=== PATIENT | female | born 1955 | race Caucasian/White ===

== ENCOUNTER 2017-05-10 05:54 | Day surgery (SDC) | payer OTHER, SELFPAY ==
[2017-05-10] VITALS (8 sets, daily range): BP systolic 131–162; BP diastolic 78–84; PULSE 60–86; RESP 16–18; TEMP 36.2–37; O2SAT 91–97; BMI 27.6
[2017-05-10] MEDS: Cefazolin 2 GM in 0.9% Normal Saline 100 ML IV (07:28)
--- NOTE | 2017-05-10 07:30 | RAD_ITS ---
STUDY: X-RAY - RIGHT FOOT CLINICAL: Female, 62 years old. Postop TECHNIQUE: 2 view(s) of the foot. COMPARISON: None. FINDINGS: Intraoperative control, status post osteotomy of the proximal first phalanx and distal second metatarsal and arthroplasty of the second PIP joint. The status post implant placement in the third metatarsal head. The hardware appears intact and in proper position. No intraoperative complications are seen. Total fluoroscopy time was 2.55 minutes RAD/Foot 2 Views IMPRESSION: Intraoperative control as described above. Electronically Signed: Sridhar Falk MD, FACR at 11:22 EST , Service support ,
--- NOTE | 2017-05-10 07:30 | BON_PTH ---
PATIENT: PEDRO AVINA LOC: [facility] [place] U#:[id number] AGE/SX: 62/F ROOM: RE05/10/[address]: Dr. Emmanuel Barraza DPM : 1955 BED: DIS: 05/10/2017 SPEC #: [id number] RECD: 05/10/17 13:09 STATUS: [place] LASHA #: [id number] ARIAN: 05/10/17 07:[address]: Emmanuel Barraza DEPT: SURGICAL PATHOLOGY RECD BY: Diego Dickey ENTERED: 05/10/17 14:42 SP TYPE: Bone OTHR DR: Dr. Kameron Lin MD Tissues: A - Bone of foot, NOS B - Bone of foot, NOS Procedures: Decalcification bone/plaque Surgery Specimen Level IV HEADER OPERATION: First MPJ chilectomy bunionectomy, excision sesamoids, second metatarsal PRE-OP DIAGNOSIS: Hallux valgus with osteoarthritis first MPJ, hammertoe second digit, long second metatarsal with possible second MPJ plantar plate, avascular necrosis/arthritis third MPJ TISSUE SUBMITTED: A ? Right foot third metatarsal head, B ? Right foot first MPJ and sesamoids MICROSCOPIC DIAGNOSIS A. Right foot third metatarsal head, biopsy: Fragments of bone with reparative and reactive change and changes consistent with avascular necrosis. Minimal synovial tissue with mild chronic inflammation. B. Right foot first MPJ and sesamoids, biopsy: Osseocartilaginous tissue with reparative change. Benign fibrofatty tissue. AM:live 05/15/17 GROSS DIAGNOSIS B. There is no evidence of osteomyelitis. MICROSCOPIC DESCRIPTION Slides are reviewed. GROSS DESCRIPTION A - Received in fixative is one container labeled with the patient's name and designated right foot, third metatarsal head. The specimen consists of multiple fragments of bone that in aggregate measure 3 x 2.5 x 0.3 cm. The entire specimen is submitted in one cassette after decalcification. B - Received in fixative is one container labeled with the patient's name and designated right foot first MPJ and sesamoids. The specimen consists of multiple variable size pieces of bone that in aggregate measure 5 x 3 x 0.5 cm. A few of the pieces show articular surfaces. Harp Regulator sections are submitted in two cassettes after decalcification. / SJ:live 05/10/17 TC:5 CPT: 16177 x2, 62449 x2
[2017-05-10] MEDS: Bupivacaine Mpf 0.5% 30 ML VIAL (10:37)
--- NOTE | 2017-05-10 10:47 | RAD_ITS ---
STUDY: X-RAY - RIGHT FOOT CLINICAL: Female, 62 years old. Postop evaluation. TECHNIQUE: 3 view(s) of the foot. COMPARISON: MRI of the foot dated March 11, 2017 FINDINGS: There is demineralization of the rear and midfoot bones. There is narrowing of several intertarsal articulations. Patient appears of had a bunionectomy of the first metatarsal head. There is deformity of distal second metatarsal possibly related to previous fracture. There are orthopedic devices within the second metatarsal head. There is a prosthesis at the third metatarsal head. There is degenerative arthrosis of the metatarsophalangeal joint of the hallux . Normal tibial and fibular sesamoid bones. Normal interphalangeal joint of the great toe. The patient apparently has had an osteotomy of the proximal phalanx of the hallux. There is increased distance between the second proximal metatarsal and the second metatarsal head. The metatarsal phalangeal joints of the fourth and fifth toes are within normal limits. Patient appears to have had surgical arthrodesis of the phalanges of the second toe. There is soft tissue swelling. RAD/Foot min 3 Views IMPRESSION: 1. Documentation of sequela multiple surgical procedures of the right foot, as described. 2. Osteoporosis. Electronically Signed: Rajwinder Campos MD at 13:34 EST , Service support ,
--- NOTE | 2017-05-10 10:51 | PCM.DC.POD ---
Discharge Diet: Light diet - advance as tolerated Discharge Activity: May Not Drive Weight Bearing Status: No weight bearing - No weight to right foot Keep extremity elevated above heart level: Right Leg - Keep right foot elevated for at least 50 minutes of every hour using pillows Call your doctor if your incision/area has: Continuous Slow Oozing, Sudden Increased Bleeding, Foul Smelling Discharge Call your doctor if you observe: Fever of 101 or Higher, Coldness, Increased Pain, Shortness of breath, Chest pain, Increased palpitations (irregular heartbeat), Calf discomfort, Uncontrolled pain Cleanse incision/area with: Do not get Incision Wet, Keep Dressing Clean & Dry Allergies/Adverse Reactions: Allergies No Known Allergies Allergy (Verified 05/03/17 10:27) Medications to take at Discharge Atorvastatin Calcium [Lipitor] 40 mg PO QHS 01/23/17 Citalopram Hydrobromide [Celexa] 40 mg PO QHS 01/23/17 Levothyroxine Sodium [Levoxyl] 50 mcg PO DAILY 01/23/17 Lisinopril/Hydrochlorothiazide [Zestoretic 20-25 mg Tablet] 1 each PO DAILY 01/23/17 Meloxicam 7.5 mg PO PRN PRN 01/23/17 Oxycodone HCl/Acetaminophen [Percocet 5/325] 1 - 2 tab PO Q4H PRN PRN 5 Days #30 tab 05/10/17 The following prescriptions were given: Oxycodone HCl/Acetaminophen [Percocet 5/325] 1 - 2 tab PO Q4H PRN PRN 5 Days #30 tab PRN Reason: Pain Primary Care Physician: Kameron Lin Chi, MD [Primary Care Provider] - Please Follow Up With: Emmanuel Barraza DPM When: within 1 week or sooner if needed
--- NOTE | 2017-05-10 10:57 | OP.PCM_ITS ---
Report of Operation Date of Procedure: 05/10/17 Pre-Operative Diagnosis: 1. Hallux valgus bunion with osteoarthritis of the 1st metatarsal phalangeal joint including the sesamoids, right. 2. Deformity of 2nd metatarsal with torn plantar plate 2nd metatarsal phalangeal joint right. 3. Hammer toe of the 2nd toe right foot. 4. Avascular necrosis of the 3rd metatarsal head, right / osteoarthritis 3rd metatarsal phalangeal joint Post-Operative Diagnosis: Same Surgery/Procedure Performed:: 1. Bunionectomy with cheilectomy and sesamoidectomy right 1st metatarsal phalangeal joint. 2. Elvin osteotomy right hallux. 3. 2nd metatarsal osteotomy with repair of 2nd metatarsal phalangeal joint plantar plate, right. 4. Arthrodesis of the 2nd toe, right. 5. Implant arthroplasty 3rd metatarsal head, right Description of Surgical Findings:: nonviable avascular necrosis 3rd metatarsal head right foot. severe contracture 2nd toe, right. 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 Barnhart Type of Anesthesia:: General Specimen's removed: 1. Bone from right 3rd metatarsal head sent to pathology. 2. Bone from right 1st metatarsal phalangeal joint with excised sesamoids sent to pathology Description of Procedure: Indications: This is a 62 year old female with painful bunion/1st metatarsal phalagneal joint (MTPJ), painful 2nd hammer toe, 2nd MTPJ, and painful 3rd metatarsal head all on the right foot. She has hallux valgus bunion with osteoarthritis of the 1st MTPJ including the sesamoids, significant 2nd hammer toe and 2nd metatarsal deformity with instability of the 2nd MTPJ plantar plate , and also noted to have avascular necrosis of the 3rd metatarsal head. This has been treated with extensive conservative/nonsurgical management, but symptoms persists and she continues to have pain and symptoms. She elected to undergo surgery. We discussed the procedures. We reviewed the rationale of each as well as the possible benefits, risks, potential complications goals and expectations of each.This was discussed with her in great detail. Typical post op recovery was reviewed with her. Advised her the increased risks with smoking/ tobacco use, including nonhealing and nonunion, along with increased chance of all other potential complications. She expressed understanding and agreement, and related she was going to quit smoking. The consent forms were reviewed with her in detail, and she freely signed them. No guarantees were given. All of her questions were answered. Operative Procedure: The patient was brought back into the operating room and was placed on the operating room table in the supine position. She was carefully secured to the operating room table with a safety belt around her waist. A time out was performed and the patient was properly identified and the surgical plan was confirmed. The patient received 2 grams of IV Ancef for antibiotic prophylaxis. A well padded pneumatic tourniquet was applied around the right ankle. The patient did receive general anesthesia per the anesthesiologist. The right foot was scrubbed, prepped, draped in the usual aseptic fashion. A timeout was performed and the patient was properly identified and the surgical plan was confirmed. The right foot was elevated for 3 minutes and the right ankle pneumatic tourniquet was inflated to 250mmHg. Using a 15 blade a linear longitudinal skin incision was overlying the dorsal aspect of the 3rd metatarsal phalangeal joint (MTPJ). Careful blunt dissection was completed down through the subcutaneous layer to the dorsal 3rd MTPJ capsule. The capsule of the 3rd MTPJ was identified and was carefully incised dorsally, it was carefully reflected from the dorsal, medial and lateral aspect, exposing the 3rd metatarsal head. There was noted to be significant degenerative changes of the 3rd metatarsal head with yellow nonviable cartilage, there was fragmentation of the 3rd metatarsal head consistent with avascular necrosis. The cartilage on the base of the 3rd toe proximal phalanx did appear healthy and viable. A guide wire was placed centrally and perpendicular to the 3rd metatarsal head and was placed down the shaft of the 3rd metatarsal. This was checked using intraoperative fluoroscopy. A step drill was used to prepare the screw hole to the 3rd metatarsal head. The 7mm taper post fixation component was inserted in standard fashion. A reamer was using to remove the nonviable damaged cartilage and bone to creat a socket for the implant. The excised bone / cartilage was sent to pathology for further evaluation. Due to the extensive nature of the nonviable unhealthy cartilage and bone the 3rd metatarsal was not short. It is important to note that all bone ledges were removed from the 3rd metatarsal head. The Arthrosurface implant was ready to be inserted. The Arthrosurface implant, 1.5 x 2mm articular component, was placed into the prepared distal 3rd metatarsal surface. It was tamped in place. Due to the severe avascular necrosis and extensive nonviable unhealthy bone as noted above there was noted to be a defect/void of bone to the lateral cortex of the distal 3rd metatarsal at the level of implant placement. To avoid further shortening, cancellous bone chips mixed with DBX bone graft were packed into the lateral cortex after the implant had been placed. At this time, the implant was noted to be stable and in good position, this was confirmed using intra operative fluoroscopy. There was good smooth normal range of motion to the 3rd MTPJ with no grinding, popping or clicking. The site was flushed out with copious amounts of normal saline solution. The joint capsule was reapproximated using 2-0 Vicryl , the subcutaneous tissue layer was reapproximated using 4-0 Vicryl, and the skin was reapproximated using 4-0 Monocryl. Attention was directed to the right hallux and 1st MTPJ. There is significant bunion deformity, as well as limited range of motion with crepitus present to the 1st MTPJ. A linear longitudinal skin incision was made overlying the medial hallux proximal phalanx using a 15 scalpel blade. Careful blunt dissection was completed down through the subcutaneous tissue layer, down to the periosteum of the hallux proximal phalanx. The periosteum was partially reflected off of the medial and dorsal aspect of the proximal aspect of the hallux proximal phalanx. An Elvin osteotomy was completed to the proximal aspect of the hallux proximal phalanx with the base medial and the apex lateral, preserving the lateral cortex. The wedge of bone was removed and passed from the surgical site. The bone ends were brought together and the osteotomy was closed down. The osteotomy was fixated using rigid open reduction internal fixation using 1 Arthrex Plaple and 1 x 2.3mm cortical screw. The osteotomy site was very stable and in good position. The hallux was now a good and rectus position, this was confirmed with intra operative fluoroscopy. A linear longitudinal skin incision was made overlying the medial 1st MTPJ using a 15 scalpel blade. Careful blunt dissection was completed down through the subcutaneous tissue layer, down to the capsule of the 1st MTPJ, which was incised with a 15 scalpel blade. The 1st MTPJ capsule was partially reflected exposing the dorsal and medial aspect of the 1st metatarsal head. There was large medial and dorsal eminence present (the cartilage on the dorsal and medial 1st metatarsal head was worn away and unhealthy) which was resected using a powered sagittal saw. Carefully blunt diseection was completed down to visualize the sesamoids, which were carefully released of the soft tissue attachments, and the tibial and fibular sesamoids were excised. There was significant degeneration of the sesamoids with the cartilage worn away, they sesamoids were unhealthy and arthritic appearing. These were passed from the surgical site and was sent with the resected medial and dorsal eminence bone from the 1st metatarsal to pathology for further evaluation. At this time the hallux was put through range of motion and it was gliding normally and smoothly , with no impingement present. The remaining joint appeared healthy and viable. The flexor tendons of the 1st ray were kept intact. The site was flushed out with copious amounts of normal saline solution. The joint capsule was reapproximated in neutral position using 2-0 Vicryl, the subcutaneous tissue layer was reapproximated using 4-0 Vicryl, the skin was reapproximated using 4- 0 Monocryl. Attention was directed to the right 2nd toe which was noted to be significantly contracted consistent with a hammer toe. An incision was made using a 15 blade overlying the dorsal proximal interphalangeal joint in longitudinal fashion. Care dissection was completed down to the extensor digitorum longus tendon and it was incised longitudinally over the joint, retracting it out of the way. The proximal interphalangeal joint capsule was incised and the collateral ligament of the joint were released using a 15 blade. The cartilage was resected off of the head of the proximal phalanx and off of the base of the medial phalanx. The toe was placed in rectus position, and a K-wire was placed down the center of the shaft of the distal, middle, and proximal phalanges stopping at the base of the proximal phalanx and exiting out of center of the toe. The K-wire was trimmed and capped. The fusion site had good bone to bone contact and the toe was in rectus position. This was confirmed using intraoperative fluoroscopy. The site was flushed out with copious amounts of normal saline solution. The subcutaneous tissue layer was reapproximated using 4-0 Vicryl, and the skin was reapproximated using 2-0 Monocryl. The kwire was trimmed outside of the toe at the distal aspect and was capped with a pin cap. Attention was directed to the 2nd ray on the right foot. The 2nd toe was contracted dorsally and medially deviated, with a dorsal prominence to the PIPJ , 2nd metatarsal was long/deformed, and there was instability of the 2nd MTPJ plantar plate. Using a 15 blade a linear longitudinal skin incision was overlying the dorsal aspect of the 2nd metatarsal phalangeal joint (MTPJ). Careful blunt dissection was completed down through the subcutaneous layer to the dorsal 2nd MTPJ capsule. The capsule of the 2nd MTPJ was identified and was carefully incised dorsally, it was carefully reflected from the dorsal, medial and lateral aspect, exposing the 2nd metatarsal head and base of the proximal phalanx of the 2nd toe. There was noted to be a loose fragment of bone to the medial aspect of the base of the 2nd toe proximal phalanx which was excised. A McGlamry metatarsal elevator was used to release the plantar adhesions of the 2nd MTPJ. A Navjot osteotomy was completed to the 2nd metatarsal using a powered sagittal saw. This osteotomy was made parallel to the weightbearing surface. The 2nd metatarsal head was shifted proximally and the joint was gently distracted. The plantar plate was visualized, it was noted that the plantar plate was completed torn at the level of the 2nd MTPJ with thickening present. The plantar plate of the 2nd MTPJ was reapproximated and repaired with the Arthrex CRP Scorpion hand piece and 0 FiberWire. The FiberWire was weaved through the plantar plate. Two drill holes were made to the base of the 2nd toe proximal phalanx extra-articular in standard fashion, and the FiberWire was placed through the drill holes. The temporary fixation (kwire) was removed from the shaft and head of the 2nd metatarsal, and the 2nd metatarsal was reapproximated to the distal end of the 2nd metatarsal, keeping it inline with the parabola of the metatarsal. The 2nd metatarsal was shortened. The 2nd metatarsal was shortened, and was fixated with two Arthrex snap off screws from the CPR kit. An additional 0.62inch kwire was used to further fixate the osteotomy for further stability. It was trimmed flush with the dorsal 2nd metatarsal shaft. The 2nd toe was plantarflexed and the FiberWire was tied down overlying the dorsal aspect of the base of the proximal phalanx of the 2nd toe. At this time there was negative dorsal drawer and there was complete repair of the plantar plate. There was noted to be rectus position to the 2nd toe with excellent stability present. Cavilon was painted to the sutured skin edges and steristrips were applied across the sutured skin incisions. All vital structure, including all vital neurovascular structures were properly identified and protected as necessary throughout the procedure. Of note the pneumatic tourqniuet was deflated at the 90 minute roger, there was immediate return of vascular flow to the foot and all toes. CFT < 2 seconds to all toes, and had normal temperature gradient present. This remained like this for the rest entirety of the procedure. 7mL of 0.5% Bupivacaine plain was given as a local nerve block around the 1st, 2nd and 3rd rays for post operative pain control. A dressing was applied which consisted of Betadine soaked adaptic, 4x4 gauze, kerlix and adalid dressing to the right foot. The patient tolerated the above operative procedure well at the anesthesia well with no complications. The patient was transported to the recovery room with vital signs stable and in good condition. Post operative orders were placed. Post operative instructions were reviewed with her as well as with her who was with her today. No weightbearing right foot, keep right foot elevated for at least 50 minutes of every hour, keep dressing clean, dry and intact. Prescription for Percocet 5mg/325mg was prescribed: 1-2 tabs PO q 4 hours PRN pain for pain control, as well as Augmentin 500/125mg PO q 12 hours for 5 days to help prevent an infection. She was dispensed a surgical shoe. She has a knee walker. The patient also received a right lower extremity popliteal block in the recovery room per the anesthesia service to help with post operative pain control. Post operative xrays were obtained in the recovery room which confirmed 3rd MTPJ implant arthroplasty, 2nd metatarsal osteotomy, arthrodesis of the 2nd toe , elvin osteotomy, 1st metatarsal bunionectomy cheilectomy and excised sesamoids of the 1st MTPJ. Intact implant 3rd metatarsal head, intact screws and kwire fixation to the 2nd metatarsal osteotomy, intact plapel, and K-wire 2nd toe all in good position. There was good bone to bone contract at the fusion site 2nd toe, and to the 2nd metatarsal osteotomy site with no gapping. Otherwise no acute changes and stable xrays. Grafts/Implants Used: Arthrosurface implant, 2 arthrex snap off screws, 0 Fiberwire, 2 x Kwires - Complications None
[2017-05-10] MEDS: oxyCODONE 5 MG Tablet PO ×2 (12:31→12:32)
== END 2017-05-10 12:39 | disposition home or self-care (01) ==
LOC: SDC 05:55 → AC 05:56
PROVIDERS: Family Provider Family Medicine Geriatric Medicine; PCP Family Medicine Geriatric Medicine; Visit Provider Podiatrist
PROC: (CPT 28292; principal; 2017-05-10 07:15)
DX: M20.11 Hallux valgus (acquired), right foot (principal); M19.071 Primary osteoarthritis, right ankle and foot; M21.611 Bunion of right foot; M20.41 Other hammer toe(s) (acquired), right foot; I96 Gangrene, not elsewhere classified; I10 Essential (primary) hypertension; F17.200 Nicotine dependence, unspecified, uncomplicated; E78.00 Pure hypercholesterolemia, unspecified
CPT/HCPCS: 01480; 28299; 28315; 64450; 73620; 73630; 76000; 88304; 88305; 88311; J7120; J2405

== ENCOUNTER → 2017-06-06 07:57 | Outpatient (CLI) | payer OTHER, SELFPAY ==
--- NOTE | 2017-06-06 07:58 | HPBI_ITS ---
MAMMOGRAPHY - BILATERAL SCREENING REASON FOR EXAM: Female, 62 years old. Routine annual screening examination. PERTINENT HISTORY: Non-contributory. TECHNIQUE: Digital bilateral breast vinh (3D mammographic acquisition) in the CC and MLO projections. 2-D mediolateral oblique (MLO) and craniocaudad (CC) views of both breasts were obtained. CAD: Full Field Digital Mammography with Computer Added Detection was performed. COMPARISON: Comparison is made with prior study dated May 17, 2016 and September 13, 2014. FINDINGS: Breast Composition: There are scattered areas of fibroglandular density. There are no dominant masses or suspicious calcifications. Stable bilateral benign appearing axillary lymph nodes. No other significant abnormalities are identified. There has been no significant change since the prior study. HPBI/SCREENING MAMM (CAD), BILAT IMPRESSION: Stable bilateral screening mammogram. Yearly follow-up mammogram recommended. (A) ASSESSMENT CATEGORY: BIRADS Category 2: Benign. A letter regarding these results will be sent to the patient by the facility within 30 days. Approximately 10% of breast cancers are not detected by mammography. A normal mammogram should not delay biopsy of a clinically suspicious abnormality. [id number] Electronically Signed: Gaudencio Hoffman MD at 10:22 EST Tel [phone], Service support ,
== END ==
PROVIDERS: Family Provider Family Medicine Geriatric Medicine; PCP Family Medicine Geriatric Medicine; Visit Provider Family Medicine Geriatric Medicine
DX: Z12.31 Encounter for screening mammogram for malignant neoplasm of breast (principal)
CPT/HCPCS: 77063; 77067

== ENCOUNTER → 2017-08-29 10:24 | Outpatient (CLI) | payer OTHER, SELFPAY ==
[2017-08-29 13:03] LABS: Absolute Lymphocyte Count 1.94 X10^3/ul (0.83-4.51); Absolute Neutrophil Count 7.6 X10^3/uL (2.0-7.7); Basophil# 0.06 X10^3/uL; Basophil% 0.6 % (0-1); Eosinophil# 0.17 X10^3/uL; Eosinophils% 1.7 % (0-5); Hematocrit 43.6 % (37-47); Hemoglobin 14.3 g/dl (12.0-15.0); Lymphocyte # 1.94 X10^3/ul (4.0); Lymphocyte % 18.8 % (19-41); Mean Corp Hgb Conc 32.8 g/gl (32-36); Mean Corpuscular Hgb 28.7 pg (27.0-32.0); Mean Corpuscular Volume 87.6 fL (81-99); Mean Platelet Vol. 13.1 fl (6.2-12.0); Monocyte# 0.56 X10^3/uL; Monocyte% 5.4 % (0-10); Neutrophil # 7.56 X10^3/uL (2.7-7.7); Neutrophil % 73.4 % (47-70); Platelet Count 296 K/mm3 (150-450); RBC Distribution Width CV 13.5 % (11.6-14.6); RBC Distribution Width SD 43.2 fl (35.1-43.9); Red Blood Count 4.98 M/mm3 (4.2-5.4); White Blood Count 10.3 K/mm3 (4.4-11.0)
[2017-08-29 13:04] LABS: POSITIVE COUNT NO; POSITIVE DIFFERENTIAL NO; POSITIVE MORPHOLOGY NO
[2017-08-29 13:19] LABS: AST(SGOT) 24 U/L (15-37); Alanine Aminotransfer ALT/SGPT 39 U/L (13-56); Alkaline Phosphatase 81 U/L (45-117); Anion Gap 6 (5-15); BUN 17 mg/dL (7-18); BUN/Creat Ratio 16.8 RATIO (10-20); Calcium,Total 9.2 mg/dL (8.5-10.1); Chloride 102 mmol/L (98-107); Creatinine, Serum 1.01 mg/dL (0.55-1.02); EST Glomerular Filtration Rate 59 mL/min (>60); Est Glom Filt Rate - Afr Amer 72 mL/min (>60); Glucose 92 mg/dL (74-106); Potassium 3.5 mmol/L (3.5-5.1); Sodium Level 137 mmol/L (136-145); Thyroid Stim Hormone (TSH) 0.57 uIU/mL (0.358-3.74)
== END ==
PROVIDERS: Family Provider Family Medicine Geriatric Medicine; PCP Family Medicine Geriatric Medicine; Visit Provider Family Medicine Geriatric Medicine
DX: I10 Essential (primary) hypertension (principal)
CPT/HCPCS: 36415; 80053; 84443; 85025

== ENCOUNTER → 2018-03-03 11:24 | Outpatient (CLI) | payer OTHER, SELFPAY ==
[2017-05-10 06:21] VITALS: BMI 27.6
[2018-03-03 12:50] LABS: Absolute Neutrophil Count 4.3 X10^3/uL (2.0-7.7); Basophil# 0.06 X10^3/uL; Basophil% 0.9 % (0-1); Eosinophil# 0.23 X10^3/uL; Eosinophils% 3.5 % (0-5); Hematocrit 43.1 % (37-47); Hemoglobin 13.6 g/dl (12.0-15.0); Lymphocyte % 21.1 % (19-41); Mean Corp Hgb Conc 31.6 g/gl (32-36); Mean Corpuscular Hgb 27.7 pg (27.0-32.0); Mean Corpuscular Volume 87.8 fL (81-99); Mean Platelet Vol. 12.7 fl (6.2-12.0); Neutrophil # 4.34 X10^3/uL (2.7-7.7); Neutrophil % 65.5 % (47-70); Platelet Count 260 K/mm3 (150-450); RBC Distribution Width SD 41.7 fl (35.1-43.9); Red Blood Count 4.91 M/mm3 (4.2-5.4); White Blood Count 6.6 K/mm3 (4.4-11.0)
[2018-03-03 12:56] LABS: POSITIVE COUNT NO; POSITIVE DIFFERENTIAL NO; POSITIVE MORPHOLOGY NO
[2018-03-03 13:24] LABS: ALB/GLOB Ratio 1.1 RATIO (0.9-2.4); AST(SGOT) 41 U/L (15-37); Alanine Aminotransfer ALT/SGPT 44 U/L (13-56); Albumin, Serum 4.1 g/dL (3.2-5.0); Alkaline Phosphatase 66 U/L (45-117); Anion Gap 12 (5-15); BUN 19 mg/dL (7-18); BUN/Creat Ratio 18.1 RATIO (10-20); Calcium,Total 9.5 mg/dL (8.5-10.1); Chloride 102 mmol/L (98-107); Creatinine, Serum 1.05 mg/dL (0.55-1.02); EST Glomerular Filtration Rate 57 mL/min (>60); Est Glom Filt Rate - Afr Amer 69 mL/min (>60); Globulin 3.6 g/dL (2.2-4.2); Glucose 121 mg/dL (74-106); Potassium 3.4 mmol/L (3.5-5.1); Protein, Total 7.7 g/dL (6.4-8.2); Sodium Level 141 mmol/L (136-145); Thyroid Stim Hormone (TSH) 1.17 uIU/mL (0.358-3.74)
== END ==
PROVIDERS: Family Provider Family Medicine Geriatric Medicine; PCP Family Medicine Geriatric Medicine; Visit Provider Family Medicine Geriatric Medicine
DX: Z00.00 Encounter for general adult medical examination without abnormal findings (principal)
CPT/HCPCS: 36415; 80053; 84443; 85025

== ENCOUNTER → 2018-03-14 09:57 | Outpatient (CLI) | payer OTHER, SELFPAY ==
[2017-05-10 06:21] VITALS: BMI 27.6
[2018-03-14 12:33] LABS: Anion Gap 6 (5-15); BUN 18 mg/dL (7-18); BUN/Creat Ratio 17.5 RATIO (10-20); Calcium,Total 9.2 mg/dL (8.5-10.1); Chloride 102 mmol/L (98-107); Creatinine, Serum 1.03 mg/dL (0.55-1.02); EST Glomerular Filtration Rate 58 mL/min (>60); Est Glom Filt Rate - Afr Amer 70 mL/min (>60); Glucose 109 mg/dL (74-106); Potassium 4.1 mmol/L (3.5-5.1); Sodium Level 139 mmol/L (136-145)
== END ==
PROVIDERS: Family Provider Family Medicine Geriatric Medicine; PCP Family Medicine Geriatric Medicine; Visit Provider Family Medicine Geriatric Medicine
DX: E87.6 Hypokalemia (principal)
CPT/HCPCS: 36415; 80048

== ENCOUNTER → 2018-07-07 16:26 | Outpatient (CLI) | payer OTHER, SELFPAY ==
[2018-07-07 09:41] VITALS: BMI 27.6
[2018-07-11 12:26] LABS: HPV APTIMA, High Risk Negative (Negative)
== END ==
PROVIDERS: Family Provider Family Medicine Geriatric Medicine; PCP Family Medicine Geriatric Medicine; Referring Provider Obstetrics & Gynecology; Visit Provider Obstetrics & Gynecology
DX: Z12.4 Encounter for screening for malignant neoplasm of cervix (principal); R32 Unspecified urinary incontinence
CPT/HCPCS: 87086; 87088; 87624; 88175; G0145

== ENCOUNTER → 2018-10-16 13:36 | Outpatient (CLI) | payer OTHER, SELFPAY ==
[2018-07-07 09:41] VITALS: BMI 27.6
[2018-10-16 17:28] LABS: Absolute Lymphocyte Count 1.31 X10^3/ul (0.83-4.51); Absolute Neutrophil Count 4.8 X10^3/uL (2.0-7.7); Basophil# 0.04 X10^3/uL; Basophil% 0.6 % (0-1); Eosinophil# 0.19 X10^3/uL; Eosinophils% 2.8 % (0-5); Hemoglobin 13.7 g/dl (12.0-15.0); Lymphocyte # 1.31 X10^3/ul (4.0); Lymphocyte % 19.1 % (19-41); Mean Corp Hgb Conc 32.6 g/gl (32-36); Mean Corpuscular Hgb 27.6 pg (27.0-32.0); Mean Corpuscular Volume 84.7 fL (81-99); Mean Platelet Vol. 12.8 fl (6.2-12.0); Monocyte# 0.51 X10^3/uL; Monocyte% 7.4 % (0-10); Platelet Count 257 K/mm3 (150-450); RBC Distribution Width CV 12.9 % (11.6-14.6); RBC Distribution Width SD 39.6 fl (35.1-43.9); Red Blood Count 4.96 M/mm3 (4.2-5.4); White Blood Count 6.9 K/mm3 (4.4-11.0)
[2018-10-16 17:54] LABS: POSITIVE COUNT NO; POSITIVE DIFFERENTIAL NO; POSITIVE MORPHOLOGY NO
[2018-10-16 18:07] LABS: ALB/GLOB Ratio 1.2 RATIO (0.9-2.4); AST(SGOT) 25 U/L (15-37); Alanine Aminotransfer ALT/SGPT 43 U/L (13-56); Albumin, Serum 4.3 g/dL (3.2-5.0); Alkaline Phosphatase 66 U/L (45-117); Anion Gap 10 (5-15); BUN 23 mg/dL (7-18); BUN/Creat Ratio 20.5 RATIO (10-20); Calcium,Total 9.9 mg/dL (8.5-10.1); Chloride 101 mmol/L (98-107); Creatinine, Serum 1.12 mg/dL (0.55-1.02); EST Glomerular Filtration Rate 52 mL/min (>60); Est Glom Filt Rate - Afr Amer 63 mL/min (>60); Globulin 3.6 g/dL (2.2-4.2); Glucose 93 mg/dL (74-106); Potassium 3.7 mmol/L (3.5-5.1); Protein, Total 7.9 g/dL (6.4-8.2); Sodium Level 140 mmol/L (136-145); Thyroid Stim Hormone (TSH) 1.28 uIU/mL (0.358-3.74)
== END ==
PROVIDERS: Family Provider Family Medicine Geriatric Medicine; PCP Family Medicine Geriatric Medicine; Visit Provider Family Medicine Geriatric Medicine
DX: I10 Essential (primary) hypertension (principal)
CPT/HCPCS: 36415; 80053; 84443; 85025

== ENCOUNTER → 2019-02-23 11:10 | Outpatient (CLI) | payer OTHER, SELFPAY ==
[2018-07-07 09:41] VITALS: BMI 27.6
[2019-02-23 12:50] LABS: AST(SGOT) 21 U/L (15-37); Absolute Lymphocyte Count 0.91 X10^3/uL (0.83-4.51); Absolute Neutrophil Count 11.7 X10^3/uL (2.0-7.7); Alanine Aminotransfer ALT/SGPT 41 U/L (13-56); Albumin, Serum 4.1 g/dL (3.2-5.0); Alkaline Phosphatase 75 U/L (45-117); Anion Gap 8 (5-15); BUN 19 mg/dL (7-18); BUN/Creat Ratio 17.3 RATIO (10-20); Basophil# 0.05 X10^3/uL; Basophil% 0.4 % (0-1); Calcium,Total 9.5 mg/dL (8.5-10.1); Chloride 101 mmol/L (98-107); EST Glomerular Filtration Rate 54 mL/min (>60); Eosinophil# 0.01 X10^3/uL; Eosinophils% 0.1 % (0-5); Est Glom Filt Rate - Afr Amer 65 mL/min (>60); Globulin 4.1 g/dL (2.2-4.2); Glucose 138 mg/dL (74-106); Hematocrit 41.7 % (37-47); Hemoglobin 13.5 g/dL (12.0-15.0); Lymphocyte # 0.91 X10^3/ul (4.0); Lymphocyte % 6.9 % (19-41); Mean Corp Hgb Conc 32.4 g/dL (32-36); Mean Corpuscular Hgb 27.7 pg (27.0-32.0); Mean Corpuscular Volume 85.6 fL (81-99); Mean Platelet Vol. 12.7 fl (6.2-12.0); Monocyte# 0.45 X10^3/uL; Monocyte% 3.4 % (0-10); NRBC Flagged by Analyzer 0 % (0-5); Neutrophil # 11.68 X10^3/uL (2.7-7.7); Neutrophil % 88.8 % (47-70); Platelet Count 312 K/mm3 (150-450); Potassium 3.7 mmol/L (3.5-5.1); Protein, Total 8.2 g/dL (6.4-8.2); RBC Distribution Width CV 12.6 % (11.6-14.6); RBC Distribution Width SD 39.3 fl (35.1-43.9); Red Blood Count 4.87 M/mm3 (4.2-5.4); Sodium Level 137 mmol/L (136-145); White Blood Count 13.2 K/mm3 (4.4-11.0)
== END ==
PROVIDERS: Family Provider Family Medicine Geriatric Medicine; PCP Family Medicine Geriatric Medicine; Visit Provider Family Medicine Geriatric Medicine
DX: R11.2 Nausea with vomiting, unspecified (principal)
CPT/HCPCS: 36415; 80053; 85025

== ENCOUNTER 2019-02-25 02:43 | Observation (INO) | payer OTHER, SELFPAY ==
[2018-07-07 09:41] VITALS: BMI 27.6
[2019-02-25] VITALS (18 sets, daily range): BP systolic 166–218; BP diastolic 65–88; PULSE 56–90; RESP 14–20; TEMP 36.6–36.9; O2SAT 92–100; BMI 26.6
--- NOTE | 2019-02-25 03:18 | CT_ITS ---
We are attempting to reach an attending provider to discuss findings. An addendum with communication details will be sent when the communication is complete. STUDY: CT BRAIN WITHOUT CONTRAST REASON FOR EXAM: Female, 64 years old. Headache RADIATION DOSAGE (If Supplied By Facility): CTDIvol = ( 44.99 ) mGy, DLP = ( 796.11 ) mGycm TECHNIQUE: Transaxial CT imaging of the brain was performed without administration of intravenous contrast material. Individualized dose optimization techniques were used for this CT. COMPARISON: CT head 07/31/2015 FINDINGS: Normal soft tissue structures. Normal calvarium. Normal size ventricles and extra-axial spaces for the patient's age. There are bilateral periventricular areas of hypodensity measuring less than 1 cm of the lobes which demonstrate mild enlargement and there are new areas of hypodensity. Normal basal ganglia and thalami. Normal brainstem. Normal cerebellum. There is no intracranial hemorrhage. . Normal visualized paranasal sinuses. CT/Brain/Head without Contrast IMPRESSION: Progression of bilateral frontal lobe small vessel old deep white matter ischemic changes of uncertain age. Acute infarcts cannot be excluded. Further evaluation with MRI of brain should be considered. Electronically Signed: Arun Scott, at 4:06 EST Tel , Service support ,
--- NOTE | 2019-02-25 03:19 | EKG12_ITS ---
Test Reason : HEADACHE Blood Pressure : / mmHG Vent. Rate : 064 BPM Atrial Rate : 064 BPM P-R Int : 170 ms QRS Dur : 092 ms QT Int : 424 ms P-R-T Axes : 066 001 081 degrees QTc Int : 437 ms Normal sinus rhythm Nonspecific ST abnormality Abnormal ECG Confirmed by NORI CALHOUN, JENNIFER ([id number]), editor managing director HAYES MURRY ([id number]) on 02/27/2019 12:28:30 PM Referred By: JOSÉ MIGUEL Confirmed By:ABELINO JULIO MD
[2019-02-25] MEDS: 0.9% Normal Saline 1,000 ML 999 ML IV (03:27)
[2019-02-25] MEDS: DiphenhydrAMINE 50 MG/ML Syringe IV (03:27)
[2019-02-25] MEDS: proCHLORPERazine 10 MG/2 ML Vial IV (03:27)
[2019-02-25 03:51] LABS: Absolute Lymphocyte Count 1.07 X10^3/uL (0.83-4.51); Absolute Neutrophil Count 10.3 X10^3/uL (2.0-7.7); Basophil# 0.06 X10^3/uL; Basophil% 0.5 % (0-1); Eosinophil# 0.04 X10^3/uL; Eosinophils% 0.3 % (0-5); Hematocrit 40.7 % (37-47); Hemoglobin 13.5 g/dL (12.0-15.0); Lymphocyte # 1.07 X10^3/ul (4.0); Lymphocyte % 8.9 % (19-41); Mean Corp Hgb Conc 33.2 g/dL (32-36); Mean Corpuscular Hgb 28.1 pg (27.0-32.0); Mean Corpuscular Volume 84.8 fL (81-99); Mean Platelet Vol. 12.2 fl (6.2-12.0); NRBC Flagged by Analyzer 0 % (0-5); Neutrophil # 10.26 X10^3/uL (2.7-7.7); Neutrophil % 84.8 % (47-70); Platelet Count 321 K/mm3 (150-450); RBC Distribution Width CV 12.3 % (11.6-14.6); RBC Distribution Width SD 37.6 fl (35.1-43.9); White Blood Count 12.1 K/mm3 (4.4-11.0)
[2019-02-25 04:06] LABS: AST(SGOT) 15 U/L (15-37); Alanine Aminotransfer ALT/SGPT 34 U/L (13-56); Alkaline Phosphatase 64 U/L (45-117); Anion Gap 11 (5-15); BUN 14 mg/dL (7-18); Calcium,Total 9.6 mg/dL (8.5-10.1); Chloride 98 mmol/L (98-107); Creatinine, Serum 1.08 mg/dL (0.55-1.02); EST Glomerular Filtration Rate 55 mL/min (>60); Est Glom Filt Rate - Afr Amer 66 mL/min (>60); Estimated Creatinine Clearance 52.52 ml/min; Globulin 3.9 g/dL (2.2-4.2); Glucose 137 mg/dL (74-106); Lipase 89 U/L (73-393); Potassium 3.2 mmol/L (3.5-5.1); Protein, Total 7.9 g/dL (6.4-8.2); Sodium Level 138 mmol/L (136-145)
[2019-02-25] MEDS: Ketorolac 15 MG/ML Vial IV ×3 (04:18→21:51)
[2019-02-25 04:24] LABS: Mucous, Urine 0 SEEN /hpf (<or=2+); Red Blood Cells-Urine 0 SEEN /hpf (0-5); White Blood Cells 0 SEEN /hpf (0-5)
[2019-02-25 04:25] LABS: Color, Urine Straw (Yellow); Glucose, Dipstick Normal (Normal); Ketone-Dipstick Negative (Negative); Leukocyte Esterase-Dipstick Negative /ul (Negative); Nitrite-Dipstick Negative (Negative); Occult Blood-Urine Negative /ul (Negative); Protein-Dipstick Negative (Negative); Urine Bilirubin Dipstick Negative (Negative); Urine Clarity Clear (Clear); Urine Urobilinogen Normal (Normal)
--- NOTE | 2019-02-25 04:37 | ED.VIS.HA ---
History of Present Illness Chief Complaint: Headache Informant: Patient Onset: Days Context: Gradual Timing: Continuous Quality: Throbbing Associated Symptoms: Nausea Narrative: Patient is a 64-year-old female with history of hypertension hyperlipidemia presenting with worsening headache. Patient states she was diagnosed with a sinus/ear infection and started on amoxicillin last week. She notes a week and she is continued to have a headache. She describes as a pounding sensation over the front of her head. She has had associated nausea and vomiting. She denies any blood or black in her vomit. She started throwing up 2 days ago. She saw her PCP yesterday and was given fluids and pill. She does not show a pill was but thinks it was for her nausea. She denies associated abdominal pain. She denies any fever, neck pain or vision changes. She denies any urinary symptoms. She states she had normal bowel movements. Past Medical History - Allergies and Home Meds Allergies/Adverse Reactions: Allergies No Known Allergies Allergy (Verified 02/25/19 02:46) Past Medical History: - - headaches, HTN, hypothyroid Surgical History: noncontributory Smoking Status: Former smoker - Family History Maternal Family History: Family History (Last Updated 07/07/18 @ 09:40 by Karen Higgins) Mother Heart disease Father Heart disease Family History: Reports: Heart Disease Paternal Family History: Family History (Last Updated 07/07/18 @ 09:40 by Karen Higgins) Mother Heart disease Father Heart disease Family History: Reports: Heart Disease Review of Systems General: Denies: Chills, Fever, Sweats Eyes: Denies: Visual changes - bilaterally, Diplopia ENT: Denies: Rhinorrhea, Sore throat Cardiovascular: Denies: Chest pain, Palpitations Respiratory: Denies: Dyspnea, Cough, Dyspnea on exertion Gastrointestinal: Reports: Nausea, Vomiting. Denies: Abdominal pain, Diarrhea, Melena, Hematochezia Genitourinary: Denies: Dysuria, Hematuria, Frequency Musculoskeletal: Denies: Back pain, Extremity Pain Skin: Denies: Rash, Wounds Neurological: Reports: Headache. Denies: Weakness, Numbness Physical Exam Vital Signs/Narrative: Vital Signs Temp Pulse Resp BP Pulse Ox 02/25/19 02:44 98.2 F 79 20 H 179/87 H 97 Inital Vital Signs reviewed: Yes General: Well nourished, Well developed Head: NC, AT Eyes: Perrl, EOMI ENT: Moist mucous membranes, No rhinorrhea, TM's clear. Negative for: Nasal congestion, Sinus tenderness Neck: Supple, No Lymphadenopathy, No JVD, Nontender, No Meningismus Cardiovascular: Regular rate, Regular rhythm, No murmurs Respiratory: No distress, CTA bilaterally, Chest nontender Abdomen: Soft, Nontender, Nondistended, Normal bowel sounds Back: Nontender, Normal Inspection Extremities: Nontender, No edema Skin: Normal color, No rash Neuro: Alert, Oriented x3, Cranial nerves II-XII grossly intact, Normal Strength, Normal Sensation, Normal DTR, Normal Gait, - - NIH=0 Psychological: Normal affect - NIH Stroke Scale 1a Level of Consciousness: 0 1b LOC Questions (Score 2 if aphasic/stupor): 0 1c LOC Commands (Only score 1st attempt): 0 2 Best Gaze (If aphasic, use reflexive mvmts.): 0 3 Visual: 0 4 Facial Palsy: 0 5 Motor Arm Right (UN = amputation/fusion): 0 5 Motor Arm Left: 0 6 Motor Leg Right: 0 6 Motor Leg Left: 0 7 Limb ataxia (Only + if out of proportion): 0 8 Sensory (Aphasia/stupor=0 or 1, coma=2): 0 9 Best Language: 0 10 Dysarthria (mute, coma=2, intubated=UN): 0 11 Extinction and Inattention (only scored if +): 0 Total Score: 0 Diagnostic/Tx/Re-eval Chest X-Ray - ED: 2 View, Read by Radiologist, No Acute Disease Clinical Impression(s) from Imaging Studies Brain CT 02/25/19 03:18 IMPRESSION: Progression of bilateral frontal lobe small vessel old deep white matter ischemic changes of uncertain age. Acute infarcts cannot be excluded. Further evaluation with MRI of brain should be considered. Electronically Signed: Arun Scott, at 4:06 EST Tel , Service support , ADDENDUM: 02/25/19 0418 IMPRESSION: Progression of bilateral frontal lobe small vessel old deep white matter ischemic changes of uncertain age. Acute infarcts cannot be excluded. Further evaluation with MRI of brain should be considered. N.B. : The above information has been verbally conveyed by Arun Scott to Dr. Daija MD, on 02/25/2019 04:11:37 (ET). Electronically Signed: Arun Scott, at 4:06 EST Tel , Service support , Laboratory Data 02/25/19 02/25/19 02/25/19 02:50 02:50 02:50 WBC 12.1 H RBC 4.80 Hgb 13.5 Hct 40.7 MCV 84.8 MCH 28.1 MCHC 33.2 RDW Std Deviation 37.6 RDW Coeff of Romana 12.3 Plt Count 321 MPV 12.2 H Immature Gran % (Auto) 0.500 Neut % (Auto) 84.8 H Lymph % (Auto) 8.9 L [place] % (Auto) 5.0 Eos % (Auto) 0.3 Baso % (Auto) 0.5 Absolute Neuts (auto) 10.3 H Absolute Lymphs (auto) 1.07 Nucleated RBC % 0 Sodium 138 Potassium 3.2 L Chloride 98 Carbon Dioxide 29.0 Anion Gap 11 BUN 14 Creatinine 1.08 H Estim Creat Clear Calc 52.52 Est GFR (MDRD) Af Amer 66 Est GFR (MDRD) Non-Af 55 L BUN/Creatinine Ratio 13.0 Glucose 137 H Hemoglobin A1c Calcium 9.6 Magnesium 1.9 Total Bilirubin 0.40 AST 15 ALT 34 Alkaline Phosphatase 64 Total Protein 7.9 Albumin 4.0 Globulin 3.9 Albumin/Globulin Ratio 1.0 Lipase 89 TSH 1.08 Urine Color Urine Clarity Urine pH Ur Specific [place] Urine Protein Urine Glucose (UA) Urine Ketones Urine Occult Blood Urine Nitrite Urine Bilirubin Urine Urobilinogen Ur Leukocyte Esterase Urine RBC Urine WBC Ur Squamous Epith Cells Urine Bacteria Urine Mucus Urine Opiates Screen Urine Methadone Screen Ur Barbiturates Screen Ur Phencyclidine Scrn Ur Amphetamines Screen U Methamphetamin-MDMA U Benzodiazepines Scrn Urine Cocaine Screen U Cannabinoids Screen Ur Drug Screen Comment 02/25/19 02/25/19 02/25/19 02:50 04:10 04:10 WBC RBC Hgb Hct MCV MCH MCHC RDW Std Deviation RDW Coeff of Romana Plt Count MPV Immature Gran % (Auto) Neut % (Auto) Lymph % (Auto) [place] % (Auto) Eos % (Auto) Baso % (Auto) Absolute Neuts (auto) Absolute Lymphs (auto) Nucleated RBC % Sodium Potassium Chloride Carbon Dioxide Anion Gap BUN Creatinine Estim Creat Clear Calc Est GFR (MDRD) Af Amer Est GFR (MDRD) Non-Af BUN/Creatinine Ratio Glucose Hemoglobin A1c 5.7 Calcium Magnesium Total Bilirubin AST ALT Alkaline Phosphatase Total Protein Albumin Globulin Albumin/Globulin Ratio Lipase TSH Urine Color Straw Urine Clarity Clear Urine pH 8.0 Ur Specific [place] 1.010 Urine Protein Negative Urine Glucose (UA) Normal Urine Ketones Negative Urine Occult Blood Negative Urine Nitrite Negative Urine Bilirubin Negative Urine Urobilinogen Normal Ur Leukocyte Esterase Negative Urine RBC 0 SEEN Urine WBC 0 SEEN Ur Squamous Epith Cells 0-5 SEEN Urine Bacteria RARE Urine Mucus 0 SEEN Urine Opiates Screen NEGATIVE Urine Methadone Screen NEGATIVE Ur Barbiturates Screen NEGATIVE Ur Phencyclidine Scrn NEGATIVE Ur Amphetamines Screen NEGATIVE U Methamphetamin-MDMA POSITIVE H U Benzodiazepines Scrn NEGATIVE Urine Cocaine Screen NEGATIVE U Cannabinoids Screen NEGATIVE Ur Drug Screen Comment - Rhythm Strip Rhythm Strip: Sinus Rhythm Rate: 64 Ectopy: None - EKG Initial EKG Interpretation: Sinus Rhythm, - - Sinus rhythm at a rate of 64 Normal intervals Normal axis Nonspecific T wave inversion in aVL No change compared to prior EKG on 06/30/2012 Prior: Unchanged - Medical Decision Making Patient is evaluated for headache and nausea. She has a normal neurologic exam. She states this is a typical of her normal headaches and its severity. She did recently get diagnosed with sinusitis which could be contributing to it. Because of the difference in her normal headaches and the intensity of her vomiting work-up is obtained. Because of patient's age, cardiac risk factors and vomiting, cardiac markers are also checked. Patient is initially treated with Compazine and Benadryl as well as IV fluids. Patient does have a little bit of restless leg after the Compazine but otherwise tolerates it well. CT of the brain shows changes in her frontal lobe and cannot rule out acute infarct. Patient is hypertensive in the ED but I do not suspect hypertensive emergency at this time. She does have a normal neurologic exam. After CT does not show any acute intracranial bleed, she is given IV Toradol. Patient is also given aspirin with findings of a possible acute stroke. I suspect her changes are likely more chronic but as they cannot be ruled out as acute she will be admitted for further neurologic evaluation and MRI. Patient is agreeable with this. She is stable in the emergency room and stable for the general medical floor at time of disposition. She does not have any significant laboratory abnormalities. ED Disposition - Plan for ED Patient: Disposition: Acute [facility] Diagnosis: HTN (hypertension), Headache, Abnormal CT of brain
[2019-02-25 04:40] LABS: Bacteria RARE /hpf (None Seen); Squamous Epithelial Cells - UA 0-5 SEEN /hpf (5-10)
--- NOTE | 2019-02-25 05:06 | HP.PCM_ITS ---
Problem List (1) Headache Status: Acute Qualifiers: Headache type: unspecified Headache chronicity pattern: unspecified pattern Intractability: intractable Qualified Code(s): R51 - Headache (2) Acute sinus infection Status: Acute (3) HTN (hypertension) Status: Chronic Qualifiers: Hypertension type: essential hypertension Qualified Code(s): I10 - Essential (primary) hypertension (4) HLD (hyperlipidemia) Status: Chronic Qualifiers: Hyperlipidemia type: unspecified Qualified Code(s): E78.5 - Hyperlipidemia, unspecified (5) Hypothyroidism Status: Chronic Qualifiers: Hypothyroidism type: unspecified Qualified Code(s): E03.9 - Hypothyroidism, unspecified (6) Osteoarthritis Status: Chronic Qualifiers: Osteoarthritis location: unspecified site Osteoarthritis type: unspecified Qualified Code(s): M19.90 - Unspecified osteoarthritis, unspecified site (7) Anxiety and depression Status: Chronic History of Present Illness Date of Admission: 02/25/19 Chief Complaint: Headache The patient is a 64 y/o F w/ PMHx: HTN, HLD, Anxiety and Depression, Hypothyroidism, OA who presents to the [facility] ED on 02/25/19 with history of ongoing progressively worsening headache originally diagnosed with a sinus infection and initiated on amoxicillin approximately 1 week prior to current presentation with onset of ongoing frontal head throbbing/pounding sensation with associated nausea and occasional emesis which started approximately 2 days ago with outpatient evaluation per her primary care with IV fluids administered at that time. Her headache as ongoing continuous rating pain 8 out of 10 in severity although currently now notes mildly improved following the regimen, rated 4 out of 10. Patient with recent sinus infection notes can nasal congestion, postnasal drip, tenderness to palpation of her frontal and maxillary sinus regions. Work-up in the ED included T 98.2, heart 79, BP 179/87, respiratory rate 20, 97% room air, CBC with WBC 12.1, hemoglobin 13.521 with left shift, CMP with potassium 3.2, BUN/creatinine 14/1.08, glucose 137, lipase 89, urinalysis unremarkable, CT head with progression of bilateral frontal lobe small vessel old deep white matter ischemic changes of uncertain age. Past Medical History Past Medical History (Chronic Problems): Chronic Problems (Last Reviewed 07/07/18 @ 09:39 by Karen Higgins) HTN (hypertension) (Chronic) HLD (hyperlipidemia) (Chronic) Hypothyroidism (Chronic) Osteoarthritis (Chronic) Anxiety and depression (Chronic) Urinary incontinence (Chronic) ua culture, discussed jonathan PT, and urogyn referral Medical History: Medical History (Last Reviewed 07/07/18 @ 09:39 by Karen Higgins) Depression F32.9 Dry eye H04.129 Hyperlipidemia E78.5 Hypothyroidism E03.9 Osteoarthritis M19.90 Hypertension I10 Allergies No Known Allergies Allergy (Verified 02/25/19 02:46) Home Medications: Ambulatory Orders Medication Instructions Recorded Atorvastatin Calcium [Lipitor] 40 mg PO QHS 01/23/17 Levothyroxine Sodium [Levoxyl] 50 mcg PO DAILY 01/23/17 Lisinopril/Hydrochlorothiazide 1 ea PO BID 01/23/17 [Zestoretic 20-25 mg Tablet] Meloxicam 7.5 mg PO PRN PRN 01/23/17 bupropion HCl SR 150 mg tablet,12 150 mg PO BID 07/07/18 hr sustained-release estradiol 0.01% (0.1 mg/gram) 1 g VAGINAL DAILY #42.5 g 07/07/18 vaginal cream potassium chloride ER 10 mEq 10 meq PO DAILY 07/07/18 tablet,extended release(part/cryst) Amox/Clavulanate Tablet [Augmentin 1 tab PO BID 02/25/19 Tablet] Surgical History: Surgical History (Last Updated 07/07/18 @ 09:39 by Karen Higgins) History of delivery Z98.891 x3 Hx of foot surgery Z98.890 Previous back surgery Z98.890 Surgical History: - - x3, lumbar back surgery, right bunionectomy. 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 Tobacco Use: Non-smoker Alcohol: Occasional Drugs: None - *Family History Maternal Family History: Family History (Last Updated 07/07/18 @ 09:40 by Karen Higgins) Mother Heart disease Father Heart disease History Items: Heart Disease Paternal Family History: Family History (Last Updated 07/07/18 @ 09:40 by Karen Higgins) Mother Heart disease Father Heart disease History Items: Heart Disease Review of Systems Constitutional: Reports: Anorexia, Malaise, Weakness, Fatigue. Denies: Chills, Fever, Weight Change HEENT: Reports: Hearing Changes, Post Nasal Drip, Sinus Congestion. Denies: Head Aches, Sinus Drainage Cardiovascular: Denies: Chest Pain, Palpitations Respiratory: Denies: Cough, Shortness of breath at rest, Sputum production Gastrointestinal: Reports: Nausea, Vomiting. Denies: Abdominal Pain Genitourinary: Denies: Dysuria Musculoskeletal: Reports: Back Pain. Denies: Joint Pain, Joint Tenderness Skin: Denies: Rash, Wounds Neurological: Denies: Numbness, Tingling, Focal weakness Psychiatric: Reports: Anxiety, Depression. Denies: Homicidal Ideations, Suicidal Ideations Hematologic/ Lymphatic: Denies: Easy Bruising, Easy Bleeding VTE Information - Inpt Only VTE Present on Admission: No VTE Mechan Device Prophylaxis: SCD's VTE Pharm Prophylaxis ordered?: Yes Patient Problems: Active and Suspected Problems (Last Reviewed 07/07/18 @ 09:39 by Karen Higgins) Headache (Acute) Acute sinus infection (Acute) Subjective: Seated upright in the ED bed, fatigued appearance, notes headache mildly improved, rated currently 4 out of 10, admits to some light sensitivity. Objective: Physical Examination: General: awake, alert, oriented x 3 and cooperative, laying in the ED bed, fatigued appearance, no acute distress. Skin: normal color, turgor, no icterus, cyanosis. HEENT: AT/NC, EOMI, PERRLA, moderately dry MM, no carotid bruits or JVD noted, mild tenderness to palpation of the frontal and maxillary sinus regions. Lungs: CTA bilaterally, moderate effort, moderate decrease BL bases, no rales, ronchi or wheezing. Heart: Regular rate and rhythm; no gallop, rub audible. Abdomen: soft, overweight, NTTP, ND, normal BS, no HSM. Extremities: no cyanosis, clubbing, or edema. Neurological: patient awake, alert, oriented x 3; cognitive function intact; pupils equally reactive to light and accomodation; cranial nerves II-XII grossly normal, moving all 4 extremities, no focal deficits, sensation intact, finger- nose and [id number] appropriate, negative Babinski, mild discomfort with palpation of the frontal and maxillary sinus regions, admits to light sensitivity, strength moderately global decrease secondary to acute complaints. Psychiatric: affect appears fatigued, no acute evidence of depressive or anxiety feelings. - Physical Exam Vitals/I&O's: Vital Signs Temp Pulse Resp BP Pulse Ox 98.2 F 66 14 179/87 H 99 02/25/19 02:44 02/25/19 04:48 02/25/19 04:48 02/25/19 02:44 02/25/19 04:48 Oxygen Delivery Method Room Air Weight: 170 lb 6.677 oz Body Mass Index (BMI) 26.6 Laboratory Results 02/25/19 02:50: WBC 12.1 H, RBC 4.80, Hgb 13.5, Hct 40.7, MCV 84.8, MCH 28.1, MCHC 33.2, RDW Std Deviation 37.6, RDW Coeff of Romana 12.3, Plt Count 321, MPV 12.2 H, Immature Gran % (Auto) 0.500, Neut % (Auto) 84.8 H, Lymph % (Auto) 8.9 L , [place] % (Auto) 5.0, Eos % (Auto) 0.3, Baso % (Auto) 0.5, Absolute Neuts (auto) 10.3 H, Absolute Lymphs (auto) 1.07, Nucleated RBC % 0 02/25/19 02:50: Sodium 138, Potassium 3.2 L, Chloride 98, Carbon Dioxide 29.0, Anion Gap 11, BUN 14, Creatinine 1.08 H, Estim Creat Clear Calc 52.52, Est GFR (MDRD) Af Amer 66, Est GFR (MDRD) Non-Af 55 L, BUN/Creatinine Ratio 13.0, Glucose 137 H, Calcium 9.6, Total Bilirubin 0.40, AST 15, ALT 34, Alkaline Phosphatase 64, Total Protein 7.9, Albumin 4.0, Globulin 3.9, Albumin/Globulin Ratio 1.0, Lipase 89 02/25/19 04:10: Urine Color Straw, Urine Clarity Clear, Urine pH 8.0, Ur Specific [place] 1.010, Urine Protein Negative, Urine Glucose (UA) Normal, Urine Ketones Negative, Urine Occult Blood Negative, Urine Nitrite Negative, Urine Bilirubin Negative, Urine Urobilinogen Normal, Ur Leukocyte Esterase Negative, Urine RBC 0 SEEN, Urine WBC 0 SEEN, Ur Squamous Epith Cells 0-5 SEEN, Urine Bacteria RARE, Urine Mucus 0 SEEN Assessment/Plan All Active Problems (Last Reviewed 07/07/18 @ 09:39 by Karen Higgins) Headache (Acute) Acute sinus infection (Acute) Dyspareunia due to medical condition in female (Acute) The patient is a 64 y/o F w/ PMHx: HTN, HLD, Anxiety and Depression, Hypothyroidism, OA who presents to the [facility] ED on 02/25/19 with history of ongoing progressively worsening headache originally diagnosed with a sinus infection and initiated on amoxicillin approximately 1 week prior to current presentation with onset of ongoing frontal head throbbing/pounding sensation with associated nausea and occasional emesis which started approximately 2 days ago. 1. Acute Frontal Headache, Unclear Specific Etiology: Suspect likely secondary to #[address] head with concern for advancing bilateral frontal lobe small vessel deep white matter ischemic changes, work-up in the ED included T 98.2, heart 79, BP 179/87, respiratory rate 20, 97% room air, CBC with WBC 12.1, hemoglobin 13.521 with left shift, CMP with potassium 3.2, BUN/creatinine 14/1.08, glucose 137, lipase 89, urinalysis unremarkable, CT head with progression of bilateral frontal lobe small vessel old deep white matter ischemic changes of uncertain age. Will admit to PCU, will obtain MRI Brain, if concerning findings for CVA or alternate intracranial findings, would obtain follow-up ECHO, PT/OT/Speech/Nutrition evaluation per protocol and request Neurology assessment. In interim will allow permissive HTN in interim, maintain on asa, continue statin w/ AM FLP. Fall precautions. Mag, TSH, HgbA1c pending. If MRI unremarkable but ongoing headache and history of prior migraines with concurrent recent sinus infection we will continue treatment of #2 and potentially initiate migraine regimen w/Decadron, Depakote, Gabapentin as well as scheduled Toradol. 2. Recent acute sinusitis: We will continue patient home Augmentin therapy pending #1, will also maintain on Flonase, encourage Jud pot usage. 3. Hyperglycemia: Admission glucose 137, possibly stress response, hemoglobin A1c pending. 4. Hypothyroidism: Continue home synthroid regimen, TSH pending. 5. Hypokalemia: Admission K+ 3.2, supplementation given, repeat level in AM. 6. Hypertension: Permissive pending evaluation as noted #1. 7. Hyperlipidemia: Continue home statin regimen. AM FLP. 8. Anxiety and depression: We will continue home bupropion regimen. 9. DVT prophylaxis: SCDs, Lovenox. Code Visit OBSV E&M: [id number] Initial observation care L3
[2019-02-25] MEDS: Aspirin 325 MG Tablet PO (06:07)
--- NOTE | 2019-02-25 06:31 | MRI_ITS ---
STUDY: MRI BRAIN WITHOUT CONTRAST REASON FOR EXAM: Female, 64 years old. Headache TECHNIQUE: Standardized multiplanar fat and water weighted pulse sequences were obtained. COMPARISON: None. FINDINGS: There is mild cerebral atrophy with widening of the extra-axial spaces and ventricular dilatation. There are a limited number of small white matter hyperintensities, distributed throughout the deep white matter tracts of the cerebral hemispheres, consistent with mild chronic white matter ischemic changes. There is no evidence for recent intracranial ischemia or other cause of cytotoxic edema on diffusion weighted imaging (DWI). Normal T2* images of the brain without demonstrated susceptibility artifact. There is no demonstrated hemosiderin stain. Normal bilateral basal ganglia. Normal thalami. There is no extra-axial fluid accumulation. Normal flow voids within the major intracranial circulation suggesting patency by spin echo criteria. Normal sella turcica, pituitary gland, infundibular stalk, optic chiasm and hypothalamus. Normal tectal plate and pineal gland. Normal midbrain, claude and medulla. Normal cerebellum. Normal basal cisterns. Normal bilateral temporal bones. Normal bilateral internal auditory canals. No demonstrated orbital abnormality, within the constraints of a routine brain study. Normal visualized paranasal sinuses. Normal calvarium and skull base. Normal visualized soft tissue structures. Normal visualized upper cervical spine. MRI/Brain without Contrast IMPRESSION: Involutional changes of the brain, as described above. Electronically Signed: Alexis Baez MD at 10:20 EST Tel , Service support ,
--- NOTE | 2019-02-25 06:31 | MRI_ITS ---
STUDY: MRA NECK WITHOUT CONTRAST REASON FOR EXAM: Female, 64 years old. Headache TECHNIQUE: Source images were obtained, MIPs were performed. The study was performed unenhanced. COMPARISON: None. FINDINGS: RIGHT CAROTID ARTERIES: Normal right common carotid artery (CCA). There is mild atherosclerotic plaque formation with minimal narrowing of the right carotid bulb. There is mild atherosclerotic plaque formation of the origin of the right internal carotid artery with less than 50% cross sectional diameter stenosis. Normal visualized cervical portion of the right internal carotid artery. Normal origin of the right external carotid artery (ECA). LEFT CAROTID ARTERIES: Normal left common carotid artery (CCA). Normal left common carotid bulb. Normal origin of the left internal carotid (ICA) artery without a hemodynamically significant stenosis. Normal visualized cervical portion of the left internal carotid artery. Normal origin of the left external carotid artery (ECA). VERTEBRAL ARTERIES: There is antegrade flow within the bilateral vertebral arteries with a small right vertebral artery, and a dominant left vertebral artery. MRI/MRA Neck without Contrast IMPRESSION: 1. Mild (30%) right carotid stenosis. 2. No left carotid stenosis. 3. Patent vertebral arteries bilaterally. The right vertebral artery is hypoplastic. Electronically Signed: Alexis Baez MD at 10:57 EST Tel , Service support ,
--- NOTE | 2019-02-25 06:31 | MRI_ITS ---
STUDY: MRA OF THE HEAD WITHOUT CONTRAST REASON FOR EXAM: Female, 64 years old. Headache TECHNIQUE: 3-D [id number] (TOF) imaging was performed with MIPs. The study was performed unenhanced. COMPARISON: None. FINDINGS: Normal bilateral petrous carotid arteries. Normal right cavernous carotid artery with a normal supraclinoid bifurcation. Normal left cavernous carotid artery with a normal supraclinoid bifurcation. There is non-visualization of the right A1 segment of the anterior cerebral arteries consistent with either aplastic development or an occlusion. Normal left A1 segments of the anterior cerebral artery. Normal intact anterior communicating artery (ACOM). Normal bilateral A2 segments of the anterior cerebral arteries. Normal right M1 and M2 segments of the middle cerebral arteries, with a normal M1 bifurcation. Normal left M1 and M2 segments of the middle cerebral arteries, with a normal M1 bifurcation. 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 Normal left posterior communicating artery (PCOM). There is a small atretic right vertebral artery with a dominant left vertebral artery. Normal basilar artery with a normal basilar bifurcation. The visualized bilateral superior cerebellar (SCA) arteries are normal. Normal bilateral P1, P2 and visualized P3 segments of the posterior cerebral arteries. There is no demonstrated aneurysm of the [place] of [place]. There is no major vessel occlusion or hemodynamically significant stenosis. There is no demonstrated abnormality of the visualized brain. MRI/MRA Head ONLY without Contrast IMPRESSION: Normal MRA of the head Electronically Signed: Alexis Baez MD at 10:51 EST Tel , Service support ,
--- NOTE | 2019-02-25 07:06 | PCM.PN.BLA ---
Progress Note Patient is a 64-year-old lady who was admitted with intractable headache associated with nausea. Found to have markedly elevated blood pressure of 2 one . On assessment of acute hypertensive urgency made admitted to monitored bed where patient is currently being managed Patient has been seen and examined. Her initial assessment including history and physical, diagnostic data and management orders reviewed. 1. Acute hypertensive urgency 2. Hypokalemia 3. Hypothyroidism 4. Dyslipidemia STROKE Vital Signs/Narrative: Vital Signs Temp Pulse Resp BP Pulse Ox 02/25/19 06:39 63 02/25/19 06:30 98.5 F 63 14 218/84 H 100 02/25/19 06:00 90 20 H 198/81 H 92 02/25/19 04:48 66 14 99
[2019-02-25 07:10] LABS: Amphetamine Urine VISTA NEGATIVE (<1000 ng/mL); Barbiturate Urine VISTA NEGATIVE (< 200 ng/mL); Benzodiazepine Urine VISTA NEGATIVE (< 200 ng/mL); Cocaine Urine VISTA NEGATIVE (< 300 ng/mL); Ecstacy Urine VISTA POSITIVE (< 500 ng/mL); Methadone Urine VISTA NEGATIVE (< 300 ng/mL); PCP Urine VISTA NEGATIVE (< 25 ng/mL); THC Urine VISTA NEGATIVE (< 50 ng/mL); Vista UDS pH Range 7
[2019-02-25 07:20] LABS: Magnesium 1.9 mg/dL (1.6-2.6); Thyroid Stim Hormone (TSH) 1.08 uIU/mL (0.358-3.74)
[2019-02-25 07:25] LABS: Hemoglobin A1c 5.7 % (4.2-6.3)
[2019-02-25] MEDS: 0.9% Normal Saline 1,000 ML 125 ML IV ×2 (07:50→17:41)
[2019-02-25] MEDS: Enoxaparin 40 MG/0.4 ML Syringe SC (07:52)
[2019-02-25] MEDS: 0.9% Saline Lock 10 ML Syringe IV ×4 (07:52→23:57)
[2019-02-25] MEDS: Acetaminophen 325 MG Tablet 650 MG PO (08:21)
[2019-02-25] MEDS: Amox/Clavulanate 875 MG Tablet PO ×2 (10:29→21:05)
[2019-02-25] MEDS: Fluticasone 0.05% 1 SPRAY NASAL.SRY 2 SPRAY NASAL (10:29)
[2019-02-25] MEDS: Famotidine 20 MG Tablet PO ×2 (10:29→21:05)
[2019-02-25] MEDS: Levothyroxine 50 MCG Tablet PO (10:29)
[2019-02-25] MEDS: buPROPion (SR) 150 MG Tablet.SA PO ×2 (10:29→21:05)
[2019-02-25] MEDS: hydrALAZINE 20 MG/ML Vial 10 MG IV (10:32)
[2019-02-25] MEDS: amLODIPine 10 MG Tablet PO (17:36)
[2019-02-25] MEDS: Lisinopril 20 MG Tablet PO (20:41)
[2019-02-25] MEDS: hydroCHLOROthiazide 25 MG Tablet PO (20:41)
[2019-02-25] MEDS: Gabapentin 100 MG Capsule PO (21:04)
[2019-02-25] MEDS: dexAMETHasone 4 MG/ML Vial IV ×2 (21:05→23:58)
[2019-02-25] MEDS: Atorvastatin Calcium 40 MG Tablet PO (21:06)
[2019-02-26] VITALS (13 sets, daily range): BP systolic 145–181; BP diastolic 67–86; PULSE 68–88; RESP 14–21; TEMP 36.5–36.8; O2SAT 95–98
--- NOTE | 2019-02-26 00:39 | CCHN_ITS ---
Hospitalist Note Patient with ongoing severe headache complaints with light and sound sensitivity. MRI reviewed and unremarkable. Likely blood pressure is co ntributing however given ongoing symptoms discussed options and patient amenable. Treated IV Depacon, Depakote, scheduled Toradol x5 doses, low dose gabapentin with now nearly resolved headache.
[2019-02-26] MEDS: 0.9% Normal Saline 1,000 ML 125 ML IV (03:35)
[2019-02-26 03:44] LABS: Absolute Lymphocyte Count 0.74 X10^3/uL (0.83-4.51); Absolute Neutrophil Count 12.3 X10^3/uL (2.0-7.7); Basophil# 0.03 X10^3/uL; Basophil% 0.2 % (0-1); Eosinophil# 0.01 X10^3/uL; Eosinophils% 0.1 % (0-5); Hematocrit 41.9 % (37-47); Hemoglobin 13.9 g/dL (12.0-15.0); Lymphocyte # 0.74 X10^3/ul (4.0); Lymphocyte % 5.6 % (19-41); Mean Corp Hgb Conc 33.2 g/dL (32-36); Mean Corpuscular Hgb 27.9 pg (27.0-32.0); Mean Platelet Vol. 11.6 fl (6.2-12.0); Monocyte# 0.14 X10^3/uL; Monocyte% 1.1 % (0-10); NRBC Flagged by Analyzer 0 % (0-5); Neutrophil # 12.25 X10^3/uL (2.7-7.7); Neutrophil % 92.1 % (47-70); Platelet Count 338 K/mm3 (150-450); RBC Distribution Width CV 12.3 % (11.6-14.6); RBC Distribution Width SD 37.3 fl (35.1-43.9); Red Blood Count 4.99 M/mm3 (4.2-5.4); White Blood Count 13.3 K/mm3 (4.4-11.0)
[2019-02-26 04:22] LABS: Anion Gap 11 (5-15); BUN 13 mg/dL (7-18); BUN/Creat Ratio 13.1 RATIO (10-20); Calcium,Total 9.5 mg/dL (8.5-10.1); Chloride 102 mmol/L (98-107); Cholesterol 160 mg/dL (200); Creatinine, Serum 0.99 mg/dL (0.55-1.02); EST Glomerular Filtration Rate 60 mL/min (>60); Est Glom Filt Rate - Afr Amer 73 mL/min (>60); Glucose 155 mg/dL (74-106); High Density Lipoprotein 61 mg/dL; Potassium 3.7 mmol/L (3.5-5.1); Sodium Level 138 mmol/L (136-145); Triglycerides 59 mg/dL; Very Low Density Lipoprotein 12 mg/dL (5-40)
[2019-02-26] MEDS: 0.9% Saline Lock 10 ML Syringe IV (05:35)
[2019-02-26] MEDS: Ketorolac 15 MG/ML Vial IV (05:35)
[2019-02-26] MEDS: Levothyroxine 50 MCG Tablet PO (05:35)
[2019-02-26] MEDS: dexAMETHasone 4 MG/ML Vial IV (05:35)
[2019-02-26] MEDS: Enoxaparin 40 MG/0.4 ML Syringe SC (05:35)
--- NOTE | 2019-02-26 07:47 | PN_ITS ---
Patient Problems: Active and Suspected Problems (Last Reviewed 07/07/18 @ 09:39 by Karen Higgins) Headache (Acute) Acute sinus infection (Acute) Abnormal CT of brain (Acute) Subjective: Follow-up on headache and high blood pressure: Patient was seen and examined. She was admitted on 02/25/19 with intractable headache and hypertensive urgency. Has been managed in the ICU under PCU status. Overnight, patient had complained of ongoing severe headache with light and sound sensitivities. MRI of the head as well as MRA of the head and neck was unremarkable. Blood pressures were still elevated. Patient was treated with IV Depakote, dexamethasone and Toradol. She denied any headache this morning, no nausea or vomiting or dizziness or palpitations. Vitals/I&O's: Vital Signs Temp Pulse Resp BP Pulse Ox 97.7 F L 68 14 162/67 H 96 02/26/19 05:45 02/26/19 05:45 02/26/19 05:45 02/26/19 05:45 02/26/19 05:45 Oxygen Delivery Method Room Air Weight: 76.2 kg Body Mass Index (BMI) 26.6 Intake and Output for Last 24 Hours 02/24/19 02/25/19 02/26/19 23:59 23:59 23:59 Intake Total 4427.08 / 4427.08 912.50 / 912.50 Balance 4427.08 / 4427.08 912.50 / 912.50 General: Alert, Oriented x3, Cooperative, No apparent distress HEENT: Atraumatic, PERRLA, EOMI, Normocephalic Oral: Moist Mucosa Neck: Supple Lungs: Clear to auscultation, Normal air movement Cardiovascular: Regular rate, Regular Rhythm, Normal S1, Normal S2, No murmurs Abdomen: Bowel Sounds Present, Soft, Non Tender, Non-Distended, No Hepato-splenomegaly Extremities: No edema Skin: No rashes, No breakdown Musculoskeletal: No Tenderness to Palpation of Joints or Extremities Lymphatic: No Cervical, Supraclavicular, or Inguinal Adenopathy Neurological: Cranial nerves II-XII grossly intact, Neuro grossly intact Psych/Mental Status: Normal Affect, Appropriate Laboratory Results 02/26/19 03:30: Sodium 138, Potassium 3.7, Chloride 102, Carbon Dioxide 25.0, Anion Gap 11, BUN 13, Creatinine 0.99, Estim Creat Clear Calc 57.30, Est GFR (MDRD) Af Amer 73, Est GFR (MDRD) Non-Af 60, BUN/Creatinine Ratio 13.1, Glucose 155 H, Calcium 9.5, Magnesium 2.0, Triglycerides 59, Cholesterol 160, LDL Cholesterol 87, VLDL Cholesterol 12, HDL Cholesterol 61 02/26/19 03:30: WBC 13.3 H, RBC 4.99, Hgb 13.9, Hct 41.9, MCV 84.0, MCH 27.9, MCHC 33.2, RDW Std Deviation 37.3, RDW Coeff of Romana 12.3, Plt Count 338, MPV 11.6, Immature Gran % (Auto) 0.900, Neut % (Auto) 92.1 H, Lymph % (Auto) 5.6 L, [place] % (Auto) 1.1, Eos % (Auto) 0.1, Baso % (Auto) 0.2, Absolute Neuts (auto) 12.3 H, Absolute Lymphs (auto) 0.74 L, Nucleated RBC % 0 Current Medications Acetaminophen (Tylenol) 650 mg PO Q6H PRN PRN PRN Reason: Non-cardiac pain (mod-severe) Last Admin: 02/25/19 08:21 Dose: 650 mg Documented by: Al Hydroxide/Mg Hydroxide (Mylanta Ii) 15 - 30 ml PO Q4H PRN PRN PRN Reason: INDIGESTION Albuterol Sulfate (Ventolin Aerosols) 2.5 mg INHALATION Q2H PRN PRN PRN Reason: dyspnea, wheezing Amlodipine Besylate (Norvasc) 10 mg PO DAILY [facility] Amoxicillin/Clavulanate Potassium (Augmentin Tablet) 875 mg PO BID [facility] Last Admin: 02/25/19 21:05 Dose: 875 mg Documented by: Aspirin (Aspirin, Baby) 81 mg PO DAILY@0800 [facility] Atorvastatin Calcium (Lipitor) 40 mg PO QHS [facility] Last Admin: 02/25/19 21:06 Dose: 40 mg Documented by: Bupropion HCl (Wellbutrin Sr (150mg Tablets)) 150 mg PO BID [facility] Last Admin: 02/25/19 21:05 Dose: 150 mg Documented by: Dexamethasone Sodium Phosphate (Decadron) 4 mg IV Q6 [facility] Last Admin: 02/26/19 05:35 Dose: 4 mg Documented by: Dextrose (D50w Syringe) 0 gm IV X1 PRN; Protocol PRN Reason: Hypoglycemia Enoxaparin Sodium (Lovenox) 40 mg SC DAILY@0600 [facility] Last Admin: 02/26/19 05:35 Dose: 40 mg Documented by: Famotidine (Pepcid) 20 mg PO BID [facility] Last Admin: 02/25/19 21:05 Dose: 20 mg Documented by: Fluticasone Propionate (Flonase Nasal [place]) 2 spray NASAL DAILY [facility] Last Admin: 02/25/19 10:29 Dose: 2 spray Documented by: Gabapentin (Neurontin) 100 mg PO TIDCM [facility] Last Admin: 02/25/19 21:04 Dose: 100 mg Documented by: Glucagon () 1 mg IM .X1 PRN PRN Reason: Hypoglycemia Guaifenesin (Robitussin) 20 ml PO Q4H PRN PRN PRN Reason: COUGH Hydralazine HCl (Apresoline Iv) 10 mg IV Q4H PRN PRN PRN Reason: SBP > 160 Last Admin: 02/25/19 10:32 Dose: 10 mg Documented by: Hydrochlorothiazide (Hctz) 25 mg PO BID [facility] Last Admin: 02/25/19 20:41 Dose: 25 mg Documented by: Sodium Chloride () 1,000 mls @ 125 mls/hr IV .Q8H [facility] Last Infusion: 02/26/19 06:50 Dose: 125 mls/hr Documented by: Sodium Chloride () 250 mls @ 15 mls/hr IV .[id number] PRN PRN Reason: Saline Flush Valproic Acid 500 mg/ Dextrose 55 mls @ 50 mls/hr IV Q6 [facility] Last Infusion: 02/26/19 06:50 Dose: Infused Documented by: Ketorolac Tromethamine (Toradol) 15 mg IV Q8 [facility] Stop: 02/26/19 14:01 Last Admin: 02/26/19 05:35 Dose: 15 mg Documented by: Levothyroxine Sodium (Synthroid) 50 mcg PO DAILY@0600 [facility] Last Admin: 02/26/19 05:35 Dose: 50 mcg Documented by: Lisinopril (Zestril) 20 mg PO BID [facility] Last Admin: 02/25/19 20:41 Dose: 20 mg Documented by: Magnesium Hydroxide (Milk Of Magnesia) 30 ml PO DAILY PRN PRN Reason: Constipation Melatonin (Melatonin) 3 mg PO QHS PRN PRN PRN Reason: INSOMNIA Ondansetron HCl (Zofran) 4 mg IV Q8H PRN PRN PRN Reason: NAUSEA/VOMITING Potassium Chloride (K-Dur) 10 meq PO DAILYCM [facility] Last Admin: 02/25/19 08:12 Dose: 10 meq Documented by: Promethazine HCl (Phenergan) 6.25 mg IV Q4H PRN PRN PRN Reason: NAUSEA/VOMITING Sodium Chloride () 10 - 40 ml IV UD PRN PRN Reason: SALINE FLUSH Last Admin: 02/26/19 05:35 Dose: 10 ml Documented by: Throat Lozenges (Cepacol Sore Throat Lozenge) 1 lozenge MUCOUS MEM Q2H PRN PRN PRN Reason: Sore Throat/Cough STROKE Vital Signs/Narrative: Vital Signs Temp Pulse Resp BP Pulse Ox 02/26/19 05:45 97.7 F L 68 14 162/67 H 96 Medical Necessity - Tobacco Use Smoking Status: Former smoker Tobacco Use: Non-smoker Assessment/Plan All Active Problems (Last Reviewed 07/07/18 @ 09:39 by Karen Higgins) Headache (Acute) Acute sinus infection (Acute) Abnormal CT of brain (Acute) Dyspareunia due to medical condition in female (Acute) 1. Acute headache secondary to hypertensive urgency, resolved status post IV Depakote, IV dexamethasone, IV Toradol Will discontinue Depakote, Toradol and dexamethasone Continue to monitor headache 2. Hypertensive urgency, improved, blood pressures better controlled Continue with amlodipine, hydrochlorothiazide 25 mg daily, lisinopril 20 mg twice daily 3. Recent sinusitis, continue with Amoxiclav 4. Hypothyroidism, on levothyroxine 5. Hyperlipidemia, on statin 6. Anxiety/depression, on bupropion 7. DVT PPx- Lovenox SC Code Visit Inpatient E&M: 87651 Subs Hosp L2
--- NOTE | 2019-02-26 09:29 | CASEMGMT ---
MARIA DEL CARMEN reviewed chart, pt did not have a stroke, so PHQ-9 not completed at this time. KENAN Earl
[2019-02-26] MEDS: amLODIPine 10 MG Tablet PO (09:50)
[2019-02-26] MEDS: hydroCHLOROthiazide 25 MG Tablet PO (09:50)
[2019-02-26] MEDS: Famotidine 20 MG Tablet PO ×2 (09:50→21:10)
[2019-02-26] MEDS: Aspirin 81 MG TAB.CHEW PO (09:50)
[2019-02-26] MEDS: Fluticasone 0.05% 1 SPRAY NASAL.SRY 2 SPRAY NASAL (09:51)
[2019-02-26] MEDS: Amox/Clavulanate 875 MG Tablet PO ×2 (09:51→21:10)
[2019-02-26] MEDS: Lisinopril 20 MG Tablet PO ×2 (09:51→21:11)
[2019-02-26] MEDS: buPROPion (SR) 150 MG Tablet.SA PO ×2 (09:51→21:11)
[2019-02-26] MEDS: Acetaminophen 325 MG Tablet 650 MG PO (10:00)
[2019-02-26] MEDS: diazePAM 5 MG Tablet PO (11:13)
[2019-02-26] MEDS: Atorvastatin Calcium 40 MG Tablet PO (21:11)
[2019-02-27] VITALS (7 sets, daily range): BP systolic 136–168; BP diastolic 78–88; PULSE 66–75; RESP 16–17; TEMP 36.4–37; O2SAT 95–99
[2019-02-27] MEDS: Levothyroxine 50 MCG Tablet PO (05:13)
[2019-02-27] MEDS: Enoxaparin 40 MG/0.4 ML Syringe SC (05:13)
--- NOTE | 2019-02-27 06:29 | NURSING ---
PT HAD A 5 BEAT RUN VTACH VS FLIPPING COMPLEX. HRT 114
[2019-02-27] MEDS: buPROPion (SR) 150 MG Tablet.SA PO (08:23)
[2019-02-27] MEDS: hydroCHLOROthiazide 25 MG Tablet PO (08:24)
[2019-02-27] MEDS: Famotidine 20 MG Tablet PO (08:24)
[2019-02-27] MEDS: Lisinopril 20 MG Tablet PO (08:24)
[2019-02-27] MEDS: Aspirin 81 MG TAB.CHEW PO (08:24)
[2019-02-27] MEDS: Fluticasone 0.05% 1 SPRAY NASAL.SRY 2 SPRAY NASAL (08:24)
[2019-02-27] MEDS: Amox/Clavulanate 875 MG Tablet PO (08:24)
[2019-02-27] MEDS: hydrALAZINE 25 MG Tablet PO (08:28)
[2019-02-27] MEDS: amLODIPine 10 MG Tablet PO (08:28)
--- NOTE | 2019-02-27 11:40 | PCM.DC ---
- Discharge Diagnoses Current Active Problems: Current Active and Chronic Problems (Last Reviewed 07/07/18 @ 09:39 by Karen Higgins) Headache (Acute) HTN (hypertension) (Chronic) HLD (hyperlipidemia) (Chronic) Hypothyroidism (Chronic) Osteoarthritis (Chronic) Anxiety and depression (Chronic) Acute sinus infection (Acute) Abnormal CT of brain (Acute) Reason(s) for Visit for Discharge Instructions: Headache, vomiting, hypertensive urgency You will use the following diet at home:: Cardiac Your food should be the consistency of: Regular Your liquids should be the consistency of: Regular/Thin Discharge Activity: Return to Normal Activity Additional Instructions: Continue with low salt, low fat, continue to remain active with moderate exercises about 30 mins daily. Take your BP daily and keep a log of your BP and follow-up with your primary care doctor within 1-2 weeks Allergies/Adverse Reactions: Allergies No Known Allergies Allergy (Verified 02/25/19 02:46) Medications to take at Discharge Atorvastatin Calcium [Lipitor] 40 mg PO QHS 01/23/17 Levothyroxine Sodium [Levoxyl] 50 mcg PO DAILY 01/23/17 Lisinopril/Hydrochlorothiazide [Zestoretic 20-25 mg Tablet] 1 ea PO BID 01/23/17 bupropion HCl SR 150 mg tablet,12 hr sustained-release 150 mg PO BID 07/07/18 estradiol 0.01% (0.1 mg/gram) vaginal cream 1 g VAGINAL DAILY #42.5 g 07/07/18 potassium chloride ER 10 mEq tablet,extended release(part/cryst) 10 meq PO DAILY 07/07/18 Amox/Clavulanate Tablet [Augmentin Tablet] 1 tab PO BID 02/25/19 Acetaminophen [Tylenol Tablet] 650 mg PO Q6H PRN PRN tab 02/27/19 Amlodipine [Norvasc] 10 mg PO DAILY #30 tab 02/27/19 Lisinopril [Zestril] 20 mg PO DAILY 30 Days #30 tab 02/27/19 hydrALAZINE [Apresoline] 25 mg PO BID 30 Days #60 tab 02/27/19 The following prescriptions were given: hydrALAZINE [Apresoline] 25 mg PO BID 30 Days #60 tab Transmission Status: Sent to [facility]/pharmacy #[id number] Amlodipine [Norvasc] 10 mg PO DAILY #30 tab Transmission Status: Sent to [facility]/pharmacy #[id number] Lisinopril [Zestril] 20 mg PO DAILY 30 Days #30 tab Transmission Status: Sent to [facility]/pharmacy #[id number] Primary Care Physician: Kameron Lin Chi, MD [Primary Care Provider] - Please follow up with your Primary Care Physician in: within 1-2 weeks Test Results: Test results from this visit will be discussed in further detail at your follow-up appointment, if applicable. Proposed Discharge Date: 02/27/19
--- NOTE | 2019-02-27 11:47 | PCM.DC.SUM ---
Discharge Date and Diagnosis Date of Admission: 02/25/19 Date of Discharge: 02/27/19 - Primary Discharge Diagnosis Active and Suspected Problems (Last Reviewed 07/07/18 @ 09:39 by Karen Higgins) Headache (Acute) Acute sinus infection (Acute) Accelerated hypertension/hypertensive urgency - Secondary Discharge Diagnosis Chronic Problems (Last Reviewed 07/07/18 @ 09:39 by Karen Higgins) HTN (hypertension) (Chronic) HLD (hyperlipidemia) (Chronic) Hypothyroidism (Chronic) Osteoarthritis (Chronic) Anxiety and depression (Chronic) Urinary incontinence (Chronic) ua culture, discussed jonathan, PT, and urogyn referral Hospital Course and Treatment Imaging Results: Clinical Impression(s) from Imaging Studies Brain CT 02/25/19 03:18 IMPRESSION: Progression of bilateral frontal lobe small vessel old deep white matter ischemic changes of uncertain age. Acute infarcts cannot be excluded. Further evaluation with MRI of brain should be considered. Electronically Signed: Arun Scott, at 4:06 EST Tel , Service support , ADDENDUM: 02/25/19 0418 IMPRESSION: Progression of bilateral frontal lobe small vessel old deep white matter ischemic changes of uncertain age. Acute infarcts cannot be excluded. Further evaluation with MRI of brain should be considered. N.B. : The above information has been verbally conveyed by Arun Scott to Dr. Daija MD, on 02/25/2019 04:11:37 (ET). Electronically Signed: Arun Scott at 4:06 EST Tel , Service support , Brain MRI 02/25/19 06:31 IMPRESSION: Involutional changes of the brain, as described above. Electronically Signed: Alexis Baez MD at 10:20 EST Tel , Service support , Head MRA 02/25/19 06:31 IMPRESSION: Normal MRA of the head Electronically Signed: Alexis Baez MD at 10:51 EST Tel , Service support , Neck MRA 02/25/19 06:31 IMPRESSION: 1. Mild (30%) right carotid stenosis. 2. No left carotid stenosis. 3. Patent vertebral arteries bilaterally. The right vertebral artery is hypoplastic. Electronically Signed: Alexis Baez MD at 10:57 EST Tel , Service support , None Operations: None Procedures: None Summary of Care Provided: The patient is a 64 year old F with PMhx of hypertension, recently diagnosed with acute sinusitis on antibiotics comes in with progressive headache, nausea and vomiting. Her Bp in the ED was 179/87. She was managed in the hospital and started on multiple antihypertensives. BP continued to rise int hospital and peaked at 218/84. She was also managed symptomatically with antiemetics and managed for a short time on steroids, topiramate for acute headache. She continued to improve and was discharged on amlodipine, hydralazine, increased dose of Lisinopril 20mg BID as well as hydrochlorothiazide. She will follow-up with her PCP within 1-2 weeks with a log of her BP readings at home. Subjective: On the day of discharge, patient was seen and examined. She felt improved, Denied any new complains. - Physical Exam Vitals/I&O's: Vital Signs Temp Pulse Resp BP Pulse Ox 98.6 F 72 16 151/86 H 97 02/27/19 08:15 02/27/19 08:28 02/27/19 08:15 02/27/19 08:15 02/27/19 08:15 Oxygen Delivery Method Room Air Weight: 76.2 kg Body Mass Index (BMI) 26.6 Intake and Output for Last 24 Hours 02/25/19 02/26/19 02/27/19 23:59 23:59 23:59 Intake Total 4427.08 / 4427.08 2292.08 / 2612.08 640 / 640 Balance 4427.08 / 4427.08 2292.08 / 2612.08 640 / 640 General: Alert, Oriented x3, Cooperative, No apparent distress HEENT: Atraumatic, PERRLA, EOMI, Normocephalic Oral: Moist Mucosa Neck: Supple, No JVD, Negative Carotid Bruits Lungs: Clear to auscultation, Normal air movement Cardiovascular: Regular rate, Regular Rhythm, Normal S1, Normal S2, No murmurs Abdomen: Bowel Sounds Present, Soft, Non Tender, Non-Distended, No Hepato-splenomegaly Extremities: No edema Skin: No rashes Musculoskeletal: No Tenderness to Palpation of Joints or Extremities Lymphatic: No Cervical, Supraclavicular, or Inguinal Adenopathy Neurological: Cranial nerves II-XII grossly intact, Neuro grossly intact Psych/Mental Status: Normal Affect, Appropriate Current Medications Acetaminophen (Tylenol) 650 mg PO Q6H PRN PRN PRN Reason: Non-cardiac pain (mod-severe) Last Admin: 02/26/19 10:00 Dose: 650 mg Documented by: Al Hydroxide/Mg Hydroxide (Mylanta Ii) 15 - 30 ml PO Q4H PRN PRN PRN Reason: INDIGESTION Albuterol Sulfate (Ventolin Aerosols) 2.5 mg INHALATION Q2H PRN PRN PRN Reason: dyspnea, wheezing Amlodipine Besylate (Norvasc) 10 mg PO DAILY [facility] Last Admin: 02/27/19 08:28 Dose: 10 mg Documented by: Amoxicillin/Clavulanate Potassium (Augmentin Tablet) 875 mg PO BID [facility] Last Admin: 02/27/19 08:24 Dose: 875 mg Documented by: Aspirin (Aspirin, Baby) 81 mg PO DAILY@0800 [facility] Last Admin: 02/27/19 08:24 Dose: 81 mg Documented by: Atorvastatin Calcium (Lipitor) 40 mg PO QHS [facility] Last Admin: 02/26/19 21:11 Dose: 40 mg Documented by: Bupropion HCl (Wellbutrin Sr (150mg Tablets)) 150 mg PO BID [facility] Last Admin: 02/27/19 08:23 Dose: 150 mg Documented by: Dextrose (D50w Syringe) 0 gm IV X1 PRN; Protocol PRN Reason: Hypoglycemia Enoxaparin Sodium (Lovenox) 40 mg SC DAILY@0600 [facility] Last Admin: 02/27/19 05:13 Dose: 40 mg Documented by: Famotidine (Pepcid) 20 mg PO BID [facility] Last Admin: 02/27/19 08:24 Dose: 20 mg Documented by: Fluticasone Propionate (Flonase Nasal [place]) 2 spray NASAL DAILY [facility] Last Admin: 02/27/19 08:24 Dose: 2 spray Documented by: Glucagon () 1 mg IM .X1 PRN PRN Reason: Hypoglycemia Guaifenesin (Robitussin) 20 ml PO Q4H PRN PRN PRN Reason: COUGH Hydralazine HCl (Apresoline Iv) 10 mg IV Q4H PRN PRN PRN Reason: SBP > 160 Last Admin: 02/25/19 10:32 Dose: 10 mg Documented by: Hydralazine HCl (Apresoline) 25 mg PO BID [facility] Last Admin: 02/27/19 08:28 Dose: 25 mg Documented by: Hydrochlorothiazide (Hctz) 25 mg PO DAILY [facility] Last Admin: 02/27/19 08:24 Dose: 25 mg Documented by: Sodium Chloride () 250 mls @ 15 mls/hr IV .[id number] PRN PRN Reason: Saline Flush Levothyroxine Sodium (Synthroid) 50 mcg PO DAILY@0600 [facility] Last Admin: 02/27/19 05:13 Dose: 50 mcg Documented by: Lisinopril (Zestril) 20 mg PO BID [facility] Last Admin: 02/27/19 08:24 Dose: 20 mg Documented by: Magnesium Hydroxide (Milk Of Magnesia) 30 ml PO DAILY PRN PRN Reason: Constipation Melatonin (Melatonin) 3 mg PO QHS PRN PRN PRN Reason: INSOMNIA Ondansetron HCl (Zofran) 4 mg IV Q8H PRN PRN PRN Reason: NAUSEA/VOMITING Potassium Chloride (K-Dur) 10 meq PO DAILYCM [facility] Last Admin: 02/27/19 08:24 Dose: 10 meq Documented by: Promethazine HCl (Phenergan) 6.25 mg IV Q4H PRN PRN PRN Reason: NAUSEA/VOMITING Sodium Chloride () 10 - 40 ml IV UD PRN PRN Reason: SALINE FLUSH Last Admin: 02/26/19 05:35 Dose: 10 ml Documented by: Throat Lozenges (Cepacol Sore Throat Lozenge) 1 lozenge MUCOUS MEM Q2H PRN PRN PRN Reason: Sore Throat/Cough Discharge Diet: 2000 mg Sodium Diet Discharge Activity: Return to Normal Activity Home Medications: Medications to take at Discharge Atorvastatin Calcium [Lipitor] 40 mg PO QHS 01/23/17 Levothyroxine Sodium [Levoxyl] 50 mcg PO DAILY 01/23/17 bupropion HCl SR 150 mg tablet,12 hr sustained-release 150 mg PO BID 07/07/18 estradiol 0.01% (0.1 mg/gram) vaginal cream 1 g VAGINAL DAILY #42.5 g 07/07/18 potassium chloride ER 10 mEq tablet,extended release(part/cryst) 10 meq PO DAILY 07/07/18 Amox/Clavulanate Tablet [Augmentin Tablet] 1 tab PO BID 02/25/19 Acetaminophen [Tylenol Tablet] 650 mg PO Q6H PRN PRN tab 02/27/19 Amlodipine [Norvasc] 10 mg PO DAILY #30 tab 02/27/19 Lisinopril [Zestril] 20 mg PO DAILY 30 Days #30 tab 02/27/19 Lisinopril/Hydrochlorothiazide [Zestoretic 20-25 mg Tablet] 1 ea PO DAILY #0 02/27/19 hydrALAZINE [Apresoline] 25 mg PO BID 30 Days #60 tab 02/27/19 Following Prescrptions Were Given to Patient: hydrALAZINE [Apresoline] 25 mg PO BID 30 Days #60 tab Transmission Status: Received by [facility]/pharmacy #[id number] Amlodipine [Norvasc] 10 mg PO DAILY #30 tab Transmission Status: Received by [facility]acy #[id number] Lisinopril [Zestril] 20 mg PO DAILY 30 Days #30 tab Transmission Status: Received by [facility]/pharmacy #[id number] Primary Care Physician: Kameron Lin Chi, MD [Primary Care Provider] - Please follow up with your Primary Care Physician in: within 1-2 weeks Disposition: Home Minutes spent on discharge:: 40 Patient Condition:: Stable Medical Necessity - Tobacco Use Smoking Status: Former smoker Tobacco Use: Non-smoker Meaningful Use Info Meaningful Use Diagnoses (Choose all that apply): None applicable Code Visit OBSV E&M: 37715 Observation care discharge
--- NOTE | 2019-02-27 11:52 | EKG12_ITS ---
Test Reason : Blood Pressure : / mmHG Vent. Rate : 079 BPM Atrial Rate : 079 BPM P-R Int : 162 ms QRS Dur : 102 ms QT Int : 390 ms P-R-T Axes : 069 019 088 degrees QTc Int : 447 ms Sinus rhythm with occasional Premature ventricular complexes Nonspecific ST and T wave abnormality Abnormal ECG When compared with ECG of 25-FEB-2019 03:26, MANUAL COMPARISON REQUIRED, DATA IS UNCONFIRMED Confirmed by ANUPAM FIGUEROA ([id number]), newspaper editor SCOT CHOW ([id number]) on 03/06/2019 11:52:44 AM Referred By: GAURI Confirmed By:ANUPAM FIGUEROA
--- NOTE | 2019-02-27 12:51 | PHA.DC.MC ---
Pharmacy Service has performed discharge medication reconciliation and counseling for this patient. 1. HYDRALAZINE 25MG PO BID 2. AMLODIPINE 10MG PO DAILY 3. LISINOPRIL 20MG PO DAILY The patient's discharge medication list was reviewed for discrepancies and discrepancies were resolved. I spoke with Dr. Lr regarding lisinopril/hydrochlorothiazide 20/25mg and separate lisinopril 20mg prescription. The combination pill was originally continued home as BID but she will change to once daily. She would like the patient to take combination once daily and lisinopril 20mg daily to equal 40mg PO daily of lisinopril. Home Medications Atorvastatin Calcium [Lipitor] 40 mg PO QHS 01/23/17 Levothyroxine Sodium [Levoxyl] 50 mcg PO DAILY 01/23/17 bupropion HCl SR 150 mg tablet,12 hr sustained-release 150 mg PO BID 07/07/18 estradiol 0.01% (0.1 mg/gram) vaginal cream 1 g VAGINAL DAILY #42.5 g 07/07/18 potassium chloride ER 10 mEq tablet,extended release(part/cryst) 10 meq PO DAILY 07/07/18 Amox/Clavulanate Tablet [Augmentin Tablet] 1 tab PO BID 02/25/19 Acetaminophen [Tylenol Tablet] 650 mg PO Q6H PRN PRN tab 02/27/19 Amlodipine [Norvasc] 10 mg PO DAILY #30 tab 02/27/19 Lisinopril [Zestril] 20 mg PO DAILY 30 Days #30 tab 02/27/19 Lisinopril/Hydrochlorothiazide [Zestoretic 20-25 mg Tablet] 1 ea PO DAILY #0 02/27/19 hydrALAZINE [Apresoline] 25 mg PO BID 30 Days #60 tab 02/27/19 The patient was counseled on the following discharge medications and changes in medications for homegoing were reviewed. The Reason for Use, instructions for use, and potential side effects were reviewed for all new medications. The patient's questions regarding all of their medications were answered. The patient was able to verbally demonstrate an understanding of their discharge medications.
== END 2019-02-27 11:29 | disposition home or self-care (01) ==
LOC: ED 03:40 → ICU 07:03 → PCU 02-26 15:15
PROVIDERS: Internal Medicine; Admitting Provider Family Medicine; Emergency Provider Emergency Medicine; Family Provider Family Medicine Geriatric Medicine; PCP Family Medicine Geriatric Medicine; Visit Provider Internal Medicine
DX: R51 Headache (principal); I10 Essential (primary) hypertension; E78.5 Hyperlipidemia, unspecified; E03.9 Hypothyroidism, unspecified; Z87.891 Personal history of nicotine dependence; R94.02 Abnormal brain scan; M19.90 Unspecified osteoarthritis, unspecified site; F41.9 Anxiety disorder, unspecified; N94.10 Unspecified dyspareunia; Z79.899 Other long term (current) drug therapy; J01.90 Acute sinusitis, unspecified; E87.6 Hypokalemia; R73.9 Hyperglycemia, unspecified; I16.0 Hypertensive urgency
CPT/HCPCS: 70450; 70544; 70547; 70551; 80048; 80053; 80061; 80307; 81001; 83036; 83690; 83735; 84443; 85025; 93005; 94762; 96361; 96365; 96366; 96372; 96375; 96376; 99218; 99251; 99284; J7030; A4216; G0378; G0463

== ENCOUNTER → 2019-05-19 | Outpatient (CLI) | payer OTHER, SELFPAY ==
[2019-02-25 06:15] VITALS: BMI 26.6
--- NOTE | 2019-05-19 08:06 | BI_ITS ---
MAMMOGRAPHY - BILATERAL SCREENING REASON FOR EXAM: Female, 64 years old. Routine annual screening examination. PERTINENT HISTORY: Non-contributory. TECHNIQUE: Digital bilateral breast isaac (3D mammographic acquisition) in the CC and MLO projections. 2-D mediolateral oblique (MLO) and craniocaudad (CC) views of both breasts were obtained. CAD: Full Field Digital Mammography with Computer Added Detection was performed. COMPARISON: Comparison is made with prior examination dated June 06, 2017 and May 17, 2016. FINDINGS: Breast Composition: There are scattered areas of fibroglandular density. There are no dominant masses or suspicious calcifications. Stable small benign-appearing bilateral axillary lymph nodes. No other significant abnormalities are identified. There has been no significant change since the prior study. BI/SCREEN MAMM (CAD) W/ISAAC BILAT IMPRESSION: Stable bilateral screening mammogram. Yearly follow-up mammogram recommended. (A) ASSESSMENT CATEGORY: BIRADS Category 2: Benign. A letter regarding these results will be sent to the patient by the facility within 30 days. Approximately 10% of breast cancers are not detected by mammography. A normal mammogram should not delay biopsy of a clinically suspicious abnormality. [id number] Electronically Signed: Gaudencio Hoffman, at 9:39 EST , Service support ,
== END | disposition home or self-care (01) ==
LOC: OPBI 08:06
PROVIDERS: PCP Family Medicine Geriatric Medicine; Referring Provider Obstetrics & Gynecology; Visit Provider Obstetrics & Gynecology
DX: Z12.31 Encounter for screening mammogram for malignant neoplasm of breast (principal)
CPT/HCPCS: 77063; 77067

== ENCOUNTER → 2019-09-09 | Outpatient (CLI) | payer OTHER, SELFPAY ==
[2019-02-25 06:15] VITALS: BMI 26.6
[2019-09-09 17:47] LABS: ALB/GLOB Ratio 1.2 RATIO (0.9-2.4); AST(SGOT) 22 U/L (15-37); Alanine Aminotransfer ALT/SGPT 38 U/L (13-56); Albumin, Serum 4.3 g/dL (3.2-5.0); Alkaline Phosphatase 67 U/L (45-117); Anion Gap 8 (5-15); BUN 25 mg/dL (7-18); BUN/Creat Ratio 19.1 RATIO (10-20); Calcium,Total 9.8 mg/dL (8.5-10.1); Chloride 102 mmol/L (98-107); Creatinine, Serum 1.31 mg/dL (0.55-1.02); EST Glomerular Filtration Rate 44 mL/min (>60); Est Glom Filt Rate - Afr Amer 53 mL/min (>60); Globulin 3.6 g/dL (2.2-4.2); Glucose 92 mg/dL (74-106); Potassium 3.8 mmol/L (3.5-5.1); Protein, Total 7.9 g/dL (6.4-8.2); Sodium Level 139 mmol/L (136-145)
[2019-09-09 18:26] LABS: Absolute Lymphocyte Count 1.65 X10^3/uL (0.83-4.51); Absolute Neutrophil Count 5.8 X10^3/uL (2.0-7.7); Basophil# 0.07 X10^3/uL; Basophil% 0.8 % (0-1); Eosinophils% 2.4 % (0-5); Hematocrit 38.7 % (37-47); Hemoglobin 12.4 g/dL (12.0-15.0); Lymphocyte # 1.65 X10^3/ul (4.0); Lymphocyte % 19.8 % (19-41); Mean Corpuscular Hgb 28.3 pg (27.0-32.0); Mean Corpuscular Volume 88.4 fL (81-99); Mean Platelet Vol. 12.6 fl (6.2-12.0); Monocyte# 0.64 X10^3/uL; Monocyte% 7.7 % (0-10); NRBC Flagged by Analyzer 0 % (0-5); Neutrophil # 5.75 X10^3/uL (2.7-7.7); Neutrophil % 69.1 % (47-70); Platelet Count 315 K/mm3 (150-450); RBC Distribution Width CV 12.1 % (11.6-14.6); RBC Distribution Width SD 39.2 fl (35.1-43.9); Red Blood Count 4.38 M/mm3 (4.2-5.4); White Blood Count 8.3 K/mm3 (4.4-11.0)
--- OUTSIDE RECORDS SUMMARY | 2020-01-24 07:20 | XMS RPT_ITS | CCD ---
:1955 External Reference #:[id number] Author Organization [facility] Care Team Providers Name Role Phone Unavailable Unavailable Unavailable Results Result Name Value Range Unit Interpretation Flag Date Location progress on 2016-10 PROGRESS HNO ID: [id number]: Tamara (Pt) Petar jason 10-26-2016 Stanley LinderService: (none)Author Type: Clinic Physical TherapistType: Makenzie Stanley NotesFiled: 10/26/2016 2:42 PMNote ([id number]) Text:[facility] THER[facility] DISCONTINUANCE OF CAREPlan of Care Period:Initial Evaluation Date: 04/19/16Last Visit Date: 05/31/16Therapy Program: The following is a summary of the interventions providedfor this episode of care;Body Mechanics, Education, General Conditioning, HEP and Therapeuticexercise.Assessment:The following is the goal status:Goals for Episode of Care Updated: 05/22/2016Independent in home exercises.--MET 05/22/16 for current HEPRestore pain-free lumbar ROM to normal to allow patient to be able togarden and play with grand kids without limitation. --partially met as metfor motion but not pain-freeMaintain proper sitting posture throughout session--partially METPatient will increase strength of L LE muscles to 5/5 to allow for returnto prior functional status.Improve Modified Oswestry Pain Questionnaire (LBP) by 6 points (12%) toindicate a Minimal Clinical Important Difference. 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.--progressing?Based on most recent progress report, patient was progressing as expectedtoward functional goalsbased on home exercise program compliance, pain levels, documentedsubjective information onprogress and appointment complianceReason for Discontinuation of Care: Patient has not returned to therapy orscheduled additional follow-up appointments.Tamara Velasco PT cndsnote on 2016-10 CNDSNOTE Discharge Note (enc) Normal [address] [place] [address] (PTWS) ------[facility] ([id number]) 1955 [facility] Time Provider Department10/26/16 TAMARA VELASCO (PT) PTWS During your [place] and visit today, we recorded the following information about you:Tamara Velasco PT 10/26/2016 2:42 PM ([id number]) Signed[facility] THERAPY DISCONTINUANCE OF CAREPlan of Care Period:Initial Evalu ation Date: 04/19/16Last Visit Date: 05/31/16Therapy Program: The following is a summary of th e interventions provided forthis episode of care;Body Mechanics, Education, General Condition ing, HEP and Therapeutic exercise.Assessment:The following is the goal status:Goals for Episode of Care Updated: 05/22/2016Independent in home exercises.--MET 05/22/16 for current HEPRestore pain-free lumbar ROM to normal to allow patient to be able to gardenand play with grand kids without limitatio n. --partially met as met for motionbut not pain- freeMaintain proper sitting posture throughout s ession--partially METPatient will increase strength of L LE muscles to 5/5 to allow for return topr ior functional status.Improve Modified Oswestry Pain Questionnaire (LBP) by 6 points (12%) toindicate a Minimal Clinical Important Difference. (Goal: 16%)--MET 05/22/16Patient will be able to demonstrate proper body mechanics for gardening andhousehold chores.--progressing?Based o n most recent progress report, patient was progressing as expectedtoward functional goalsbased on javid e exercise program compliance, pain levels, documented subjectiveinformation onprog ress and appointment complianceReason for Discontinuation of Care: Patient has not returned to therapy orscheduled additional follow-up appointments.Shana Guerra As of Date: 10/07(No Known Allergies)Date Reviewed: 03/26/2016Reviewed by: Susan Estes Ma - Fully Assesse dReason for Visit: Physical Therapy [503] PT Discharge [752]Reason For Visit History RecordedPrimar y Visit Diagnosis:Chronic left-sided low back pain with left-sided sciatica [M54.42, G89.29]Pre scriptions as of 10/26/2016 Sig: MELOXICAM 15 MG TABLET Take 15 mg by mouth once janeth* LEVOTHYROXI NE 50 MCG TABLET Take 50 mcg by mouth daily be* CYCLOBENZAPRINE 10 MG TABLET Take 1 tablet by mout h twice * LISINOPRIL 20 MG-HYDROCHLOROT* Take 1 tablet by mouth once d* ATORVASTATIN ORAL Take by mo uth. CELEXA ORAL Take by mouth.Problem List As Of Date 10/26/2016 Noted Resolved Chronic left-sided low back pain with left-side*INVALID FOR* Status:Closed by TAMARA VELASCO I on Summary Purpose Family History No Family History Records Found Advance Directives No Advanced Directives Records Found Additional Source Comments FOR RECORDS PERTAINING TO PATIENTS WHO ARE OR HAVE BEEN ENROLLED IN A CHEMICAL DEPENDENCY/SUBSTANCE ABUSE PROGRAM, SOME INFORMATION MAY BE OMITTED. This clinical summary was aggregated from multiple sources. Caution should be exercised in using it in the provision of clinical care. This summary normalizes information from multiple sources, and as a consequence, information in this document may materially changethe coding, format and clinical context of patient data. In addition, data may be omittedin some cases. CLINICAL DECISIONS SHOULD BE BASED ON THE PRIMARY CLINICAL RECORDS. [facility] provides no warranty or guarantee of the accuracy or completeness of information in this document. UNRECOGNIZED CONTENT PROVIDED BELOW FOR UNRECOGNIZED SECTION INFORMATION SOURCE DATE CREATED AUTHOR AUTHOR'S ORGANIZATIO N 10/02/2017 [facility]
== END | disposition home or self-care (01) ==
LOC: POLAB3 15:58
PROVIDERS: PCP Family Medicine Geriatric Medicine; Visit Provider Family Medicine Geriatric Medicine
DX: I10 Essential (primary) hypertension (principal)
CPT/HCPCS: 36415; 80053; 84443; 85025

== ENCOUNTER → 2019-09-28 15:59 | Outpatient (CLI) | payer OTHER, SELFPAY ==
[2019-02-25 06:15] VITALS: BMI 26.6
[2019-09-28 17:53] LABS: Anion Gap 7 (5-15); BUN 19 mg/dL (7-18); BUN/Creat Ratio 17.8 RATIO (10-20); Calcium,Total 9.4 mg/dL (8.5-10.1); Chloride 102 mmol/L (98-107); Creatinine, Serum 1.07 mg/dL (0.55-1.02); EST Glomerular Filtration Rate 55 mL/min (>60); Est Glom Filt Rate - Afr Amer 67 mL/min (>60); Glucose 90 mg/dL (74-106); Potassium 3.6 mmol/L (3.5-5.1); Sodium Level 139 mmol/L (136-145)
== END ==
PROVIDERS: PCP Family Medicine Geriatric Medicine; Visit Provider Family Medicine Geriatric Medicine
DX: R68.89 Other general symptoms and signs (principal)
CPT/HCPCS: 36415; 80048

== ENCOUNTER → 2020-03-15 13:32 | Outpatient (CLI) | payer OTHER, SELFPAY ==
[2019-02-25 06:15] VITALS: BMI 26.6
[2020-03-15 14:38] LABS: Basophil# 0.07 X10^3/uL; Basophil% 0.9 % (0-1); Eosinophil# 0.17 X10^3/uL; Eosinophils% 2.3 % (0-5); Hematocrit 38.8 % (37-47); Hemoglobin 12.2 g/dL (12.0-15.0); Lymphocyte % 22.9 % (19-41); Mean Corp Hgb Conc 31.4 g/dL (32-36); Mean Corpuscular Hgb 27.5 pg (27.0-32.0); Mean Corpuscular Volume 87.6 fL (81-99); Mean Platelet Vol. 11.8 fl (6.2-12.0); Monocyte# 0.51 X10^3/uL; Monocyte% 6.9 % (0-10); NRBC Flagged by Analyzer 0 % (0-5); Neutrophil # 4.96 X10^3/uL (2.7-7.7); Neutrophil % 66.7 % (47-70); Platelet Count 293 K/mm3 (150-450); RBC Distribution Width CV 12.4 % (11.6-14.6); RBC Distribution Width SD 40.1 fl (35.1-43.9); Red Blood Count 4.43 M/mm3 (4.2-5.4); White Blood Count 7.4 K/mm3 (4.4-11.0)
[2020-03-15 15:03] LABS: ALB/GLOB Ratio 1.1 RATIO (0.9-2.4); AST(SGOT) 14 U/L (15-37); Alanine Aminotransfer ALT/SGPT 31 U/L (13-56); Albumin, Serum 3.8 g/dL (3.2-5.0); Alkaline Phosphatase 65 U/L (45-117); Anion Gap 6 (5-15); BUN 23 mg/dL (7-18); BUN/Creat Ratio 21.3 RATIO (10-20); Calcium,Total 9.6 mg/dL (8.5-10.1); Chloride 106 mmol/L (98-107); Creatinine, Serum 1.08 mg/dL (0.55-1.02); EST Glomerular Filtration Rate 54 mL/min (>60); Est Glom Filt Rate - Afr Amer 66 mL/min (>60); Globulin 3.6 g/dL (2.2-4.2); Glucose 94 mg/dL (74-106); Potassium 3.8 mmol/L (3.5-5.1); Protein, Total 7.4 g/dL (6.4-8.2); Sodium Level 139 mmol/L (136-145); Thyroid Stim Hormone (TSH) 1.08 uIU/mL (0.358-3.74)
== END ==
PROVIDERS: PCP Family Medicine Geriatric Medicine; Visit Provider Family Medicine Geriatric Medicine
DX: I10 Essential (primary) hypertension (principal)
CPT/HCPCS: 36415; 80053; 84443; 85025

== ENCOUNTER → 2020-05-12 | Outpatient (CLI) | payer OTHER, SELFPAY ==
[2019-02-25 06:15] VITALS: BMI 26.6
== END | disposition home or self-care (01) ==
LOC: LABSPEC 14:26
PROVIDERS: PCP Family Medicine Geriatric Medicine; Referring Provider Family Medicine Geriatric Medicine; Visit Provider Family Medicine Geriatric Medicine
DX: R68.83 Chills (without fever) (principal)
CPT/HCPCS: 87633; 87635; C9803; U0005; U0003

== ENCOUNTER → 2020-05-23 08:38 | Outpatient (CLI) | payer OTHER, SELFPAY ==
[2019-02-25 06:15] VITALS: BMI 26.6
--- NOTE | 2020-05-23 08:39 | BI_ITS ---
MAMMOGRAPHY - BILATERAL SCREENING REASON FOR EXAM: Female, 65 years old. Routine annual screening examination. PERTINENT HISTORY: Non-contributory. TECHNIQUE: Digital bilateral breast isaac (3D mammographic acquisition) in the CC and MLO projections. 2-D mediolateral oblique (MLO) and craniocaudad (CC) views of both breasts were obtained. CAD: Full Field Digital Mammography with Computer Added Detection was performed. COMPARISON: Comparison is made with prior study dated 05/19/2019 and 06/06/2017. FINDINGS: Breast Composition: There are scattered areas of fibroglandular density. There are no dominant masses or suspicious calcifications. Stable benign-appearing axillary lymph nodes. No other significant abnormalities are identified. There has been no significant change since the prior study. BI/SCRN MAMM (CAD)W/ISAAC BILAT IMPRESSION: Stable bilateral screening mammogram. Yearly follow-up mammogram recommended. (A) ASSESSMENT CATEGORY: BIRADS Category 2: Benign. A letter regarding these results will be sent to the patient by the facility within 30 days. Approximately 10% of breast cancers are not detected by mammography. A normal mammogram should not delay biopsy of a clinically suspicious abnormality. [id number] Electronically Signed: Gaudencio Hoffman MD at 9:23 EST , Service support ,
== END ==
PROVIDERS: PCP Family Medicine Geriatric Medicine; Referring Provider Family Medicine Geriatric Medicine; Visit Provider Family Medicine Geriatric Medicine
DX: Z12.31 Encounter for screening mammogram for malignant neoplasm of breast (principal)
CPT/HCPCS: 77063; 77067

== ENCOUNTER → 2020-09-20 16:20 | Outpatient (CLI) | payer OTHER, SELFPAY ==
[2019-02-25 06:15] VITALS: BMI 26.6
[2020-09-20 16:50] LABS: Absolute Lymphocyte Count 1.71 X10^3/uL (0.83-4.51); Basophil# 0.09 X10^3/uL; Eosinophil# 0.29 X10^3/uL; Eosinophils% 3.3 % (0-5); Hematocrit 41.8 % (37-47); Hemoglobin 13.5 g/dL (12.0-15.0); Lymphocyte # 1.71 X10^3/ul (0.83-4.51); Lymphocyte % 19.5 % (19-41); Mean Corp Hgb Conc 32.3 g/dL (32-36); Mean Corpuscular Hgb 28.5 pg (27.0-32.0); Mean Corpuscular Volume 88.4 fL (81-99); Mean Platelet Vol. 11.7 fl (6.2-12.0); Monocyte# 0.69 X10^3/uL; Monocyte% 7.9 % (0-10); NRBC Flagged by Analyzer 0 % (0-5); Neutrophil # 5.96 X10^3/uL (2.7-7.7); Platelet Count 311 K/mm3 (150-450); RBC Distribution Width CV 12.5 % (11.6-14.6); RBC Distribution Width SD 40.7 fl (35.1-43.9); Red Blood Count 4.73 M/mm3 (4.2-5.4); White Blood Count 8.8 K/mm3 (4.4-11.0)
[2020-09-20 17:40] LABS: ALB/GLOB Ratio 1.1 RATIO (0.9-2.4); AST(SGOT) 25 U/L (15-37); Alanine Aminotransfer ALT/SGPT 39 U/L (13-56); Albumin, Serum 4.3 g/dL (3.2-5.0); Alkaline Phosphatase 66 U/L (45-117); Anion Gap 6 (5-15); BUN 21 mg/dL (7-18); BUN/Creat Ratio 17.5 RATIO (10-20); Chloride 101 mmol/L (98-107); EST Glomerular Filtration Rate 48 mL/min (>60); Est Glom Filt Rate - Afr Amer 58 mL/min (>60); Globulin 3.8 g/dL (2.2-4.2); Glucose 77 mg/dL (74-106); Potassium 4.1 mmol/L (3.5-5.1); Protein, Total 8.1 g/dL (6.4-8.2); Sodium Level 140 mmol/L (136-145)
== END ==
PROVIDERS: PCP Family Medicine Geriatric Medicine; Visit Provider Family Medicine Geriatric Medicine
DX: I10 Essential (primary) hypertension (principal)
CPT/HCPCS: 36415; 80053; 84443; 85025

== ENCOUNTER → 2021-03-20 10:59 | Outpatient (CLI) | payer OTHER, SELFPAY ==
[2021-03-20 12:40] LABS: Absolute Lymphocyte Count 1.25 X10^3/uL (0.83-4.51); Absolute Neutrophil Count 4.2 X10^3/uL (2.0-7.7); Basophil# 0.06 X10^3/uL; Eosinophils% 3.2 % (0-5); Hematocrit 40.4 % (37-47); Hemoglobin 13.4 g/dL (12.0-15.0); Lymphocyte # 1.25 X10^3/ul (0.83-4.51); Lymphocyte % 20.3 % (19-41); Mean Corp Hgb Conc 33.2 g/dL (32-36); Mean Corpuscular Hgb 28.6 pg (27.0-32.0); Mean Corpuscular Volume 86.3 fL (81-99); Mean Platelet Vol. 12.2 fl (6.2-12.0); Monocyte# 0.42 X10^3/uL; Monocyte% 6.8 % (0-10); NRBC Flagged by Analyzer 0 % (0-5); Neutrophil # 4.22 X10^3/uL (2.7-7.7); Neutrophil % 68.5 % (47-70); Platelet Count 301 K/mm3 (150-450); RBC Distribution Width CV 12.4 % (11.6-14.6); RBC Distribution Width SD 39.1 fl (35.1-43.9); Red Blood Count 4.68 M/mm3 (4.2-5.4); White Blood Count 6.2 K/mm3 (4.4-11.0)
[2021-03-20 12:54] LABS: Vitamin D,25 Hydroxy 65.7 ng/mL
[2021-03-20 13:01] LABS: AST(SGOT) 24 U/L (15-37); Alanine Aminotransfer ALT/SGPT 38 U/L (13-56); Albumin, Serum 3.8 g/dL (3.2-5.0); Alkaline Phosphatase 65 U/L (45-117); Anion Gap 5 (5-15); BUN 23 mg/dL (7-18); BUN/Creat Ratio 19.8 RATIO (10-20); Calcium,Total 10.1 mg/dL (8.5-10.1); Chloride 104 mmol/L (98-107); Creatinine, Serum 1.16 mg/dL (0.55-1.02); EST Glomerular Filtration Rate 50 mL/min (>60); Est Glom Filt Rate - Afr Amer 60 mL/min (>60); Globulin 3.7 g/dL (2.2-4.2); Glucose 105 mg/dL (74-106); Potassium 3.6 mmol/L (3.5-5.1); Protein, Total 7.5 g/dL (6.4-8.2); Sodium Level 140 mmol/L (136-145); Thyroid Stim Hormone (TSH) 1.81 uIU/mL (0.358-3.74)
== END ==
PROVIDERS: PCP Family Medicine Geriatric Medicine; Visit Provider Family Medicine Geriatric Medicine
DX: I10 Essential (primary) hypertension (principal); E55.9 Vitamin D deficiency, unspecified
CPT/HCPCS: 36415; 80053; 82306; 84443; 85025

== ENCOUNTER 2021-07-07 08:38 | Outpatient (CLI) | payer OTHER, SELFPAY ==
--- NOTE | 2021-07-07 08:41 | BI_ITS ---
MAMMOGRAPHY - BILATERAL SCREENING REASON FOR EXAM: Female, 66 years old. Routine annual screening examination. PERTINENT HISTORY: Non-contributory. TECHNIQUE: Digital bilateral breast isaac (3D mammographic acquisition) in the CC and MLO projections. 2-D mediolateral oblique (MLO) and craniocaudad (CC) views of both breasts were obtained. CAD: Full Field Digital Mammography with Computer Added Detection was performed. COMPARISON: Comparison is made with prior study dated 05/23/2020 and 05/19/2019. FINDINGS: Breast Composition: There are scattered areas of fibroglandular density. There are no dominant masses or suspicious calcifications. Stable small benign-appearing bilateral axillary lymph nodes. No other significant abnormalities are identified. There has been no significant change since the prior study. BI/SCRN MAMM (CAD)W/ISAAC BILAT IMPRESSION: Stable bilateral screening mammogram. Yearly follow-up mammogram recommended. (A) ASSESSMENT CATEGORY: BIRADS Category 2: Benign. A letter regarding these results will be sent to the patient by the facility within 30 days. Approximately 10% of breast cancers are not detected by mammography. A normal mammogram should not delay biopsy of a clinically suspicious abnormality. [id number] Electronically Signed: Gaudencio Hoffman MD at 9:33 EDT ,
== END 2021-07-07 23:59 | disposition home or self-care (01) ==
LOC: OPBI 08:40
PROVIDERS: PCP Family Medicine Geriatric Medicine; Visit Provider Obstetrics & Gynecology
DX: Z12.31 Encounter for screening mammogram for malignant neoplasm of breast (principal)
CPT/HCPCS: 77063; 77067

== ENCOUNTER → 2021-12-21 | Outpatient (CLI) | payer MEDICARE, BC, SELFPAY ==
--- NOTE | 2021-12-21 10:45 | RAD_ITS ---
STUDY: XR Hand Min 3 Views REASON FOR EXAM: Female, 66 years old. PAIN TECHNIQUE: XR Hand Min 3 Views LEFT COMPARISON: None. FINDINGS: Normal radiocarpal articulation. Normal distal radioulnar joint. Normal visualized carpal bones. Normal carpal articulations There is degenerative arthrosis of the carpometacarpal (CMC) articulation of the thumb. Normal second through fifth carpometacarpal joints. Normal metacarpi. Normal metacarpophalangeal joint of the thumb. Normal interphalangeal joint of the thumb. Normal proximal and distal phalanges of the thumb. Normal metacarpophalangeal joints of the second through fifth fingers. Normal proximal and distal interphalangeal joints of the second through fifth fingers. Normal phalanges of the second through fifth fingers. The soft tissue structures are unremarkable. RAD/Hand Min 3 Views IMPRESSION: Degenerative joint disease of the wrist, as described above. Electronically Signed: Guillaume Randolph MD at 17:16 EDT ,
--- NOTE | 2021-12-21 10:45 | RAD_ITS ---
STUDY: XR Hand Min 3 Views REASON FOR EXAM: Female, 66 years old. PAIN TECHNIQUE: XR Hand Min 3 Views RIGHT COMPARISON: None. FINDINGS: Normal radiocarpal articulation. Normal distal radioulnar joint. Normal visualized carpal bones. Normal carpal articulations There is degenerative arthrosis of the carpometacarpal (CMC) articulation of the thumb. Normal second through fifth carpometacarpal joints. Normal metacarpi. Normal metacarpophalangeal joint of the thumb. Normal interphalangeal joint of the thumb. Normal proximal and distal phalanges of the thumb. There is degenerative arthrosis of the 3rd metacarpophalangeal (MCP) joints. Normal proximal and distal interphalangeal joints of the second through fifth fingers. Normal phalanges of the second through fifth fingers. The soft tissue structures are unremarkable. RAD/Hand Min 3 Views IMPRESSION: Degenerative joint disease of the hand and wrist, as described above. Electronically Signed: Guillaume Randolph MD at 17:17 EDT ,
--- NOTE | 2021-12-21 10:45 | RAD_ITS ---
STUDY: XR Wrist Min 3 Views REASON FOR EXAM: Female, 66 years old. PAIN TECHNIQUE: XR Wrist Min 3 Views RIGHT COMPARISON: None FINDINGS: There are no acute findings of the visualized distal radius and ulna. There are no acute findings of the radiocarpal articulation. Normal distal radioulnar articulation. Normal carpal bones. Normal carpal articulations. There is degenerative arthrosis of the carpometacarpal articulation of the thumb. Normal second through fifth carpometacarpal articulations. There are no acute findings of the visualized metacarpal bones. The soft tissue structures are unremarkable. RAD/Wrist min 3 Views IMPRESSION: There is degenerative arthrosis of the wrist. Electronically Signed: Guillaume Randolph MD at 17:16 EDT ,
--- NOTE | 2021-12-21 10:45 | RAD_ITS ---
STUDY: XR Wrist Min 3 Views REASON FOR EXAM: Female, 66 years old. PAIN TECHNIQUE: XR Wrist Min 3 Views LEFT COMPARISON: None FINDINGS: There are no acute findings of the visualized distal radius and ulna. There are no acute findings of the radiocarpal articulation. Normal distal radioulnar articulation. Normal carpal bones. Normal carpal articulations. There is degenerative arthrosis of the carpometacarpal articulation of the thumb. Normal second through fifth carpometacarpal articulations. There are no acute findings of the visualized metacarpal bones. The soft tissue structures are unremarkable. RAD/Wrist min 3 Views IMPRESSION: There is degenerative arthrosis of the carpometacarpal articulation of the thumb. Electronically Signed: Guillaume Randolph MD at 17:18 EDT ,
[2021-12-21 12:39] LABS: Absolute Lymphocyte Count 1.59 X10^3/uL (0.83-4.51); Absolute Neutrophil Count 5.2 X10^3/uL (2.0-7.7); Basophil# 0.06 X10^3/uL; Basophil% 0.8 % (0-1); Eosinophil# 0.27 X10^3/uL; Eosinophils% 3.6 % (0-5); Hematocrit 41.7 % (37-47); Hemoglobin 13.5 g/dL (12.0-15.0); Lymphocyte # 1.59 X10^3/ul (0.83-4.51); Lymphocyte % 21.1 % (19-41); Mean Corp Hgb Conc 32.4 g/dL (32-36); Mean Corpuscular Hgb 28.5 pg (27.0-32.0); Mean Corpuscular Volume 88.2 fL (81-99); Mean Platelet Vol. 12.2 fl (6.2-12.0); Monocyte# 0.44 X10^3/uL; Monocyte% 5.8 % (0-10); NRBC Flagged by Analyzer 0 % (0-5); Neutrophil # 5.15 X10^3/uL (2.7-7.7); Neutrophil % 68.3 % (47-70); Platelet Count 296 K/mm3 (150-450); RBC Distribution Width CV 12.4 % (11.6-14.6); RBC Distribution Width SD 40.2 fl (35.1-43.9); Red Blood Count 4.73 M/mm3 (4.2-5.4); White Blood Count 7.5 K/mm3 (4.4-11.0)
[2021-12-21 13:26] LABS: ALB/GLOB Ratio 1.1 RATIO (0.9-2.4); AST(SGOT) 29 U/L (15-37); Alanine Aminotransfer ALT/SGPT 42 U/L (13-56); Albumin, Serum 4.1 g/dL (3.2-5.0); Alkaline Phosphatase 58 U/L (45-117); Anion Gap 11 (5-15); BUN 28 mg/dL (7-18); BUN/Creat Ratio 22.8 RATIO (10-20); Chloride 101 mmol/L (98-107); Creatinine, Serum 1.23 mg/dL (0.55-1.02); EST Glomerular Filtration Rate 47 mL/min (>60); Est Glom Filt Rate - Afr Amer 56 mL/min (>60); Globulin 3.6 g/dL (2.2-4.2); Glucose 102 mg/dL (74-106); Potassium 3.6 mmol/L (3.5-5.1); Protein, Total 7.7 g/dL (6.4-8.2); Sodium Level 141 mmol/L (136-145); Thyroid Stim Hormone (TSH) 3.47 uIU/mL (0.358-3.74)
== END | disposition home or self-care (01) ==
PROVIDERS: PCP Family Medicine Geriatric Medicine; Visit Provider Family Medicine Geriatric Medicine
DX: I10 Essential (primary) hypertension (principal); E55.9 Vitamin D deficiency, unspecified; M79.641 Pain in right hand; M79.642 Pain in left hand; M25.531 Pain in right wrist; M25.532 Pain in left wrist
CPT/HCPCS: 36415; 73110; 73130; 80053; 82306; 84443; 85025

== ENCOUNTER → 2022-02-07 | Outpatient (CLI) | payer MEDICARE, BC, SELFPAY | END | disposition home or self-care (01) | LOC: PSN 10:27 | PROVIDERS: PCP Family Medicine Geriatric Medicine; Referring Provider Family Medicine Geriatric Medicine; Visit Provider Family Medicine Geriatric Medicine | DX: R68.83 Chills (without fever) (principal); Z20.822 Contact with and (suspected) exposure to COVID-19 | CPT/HCPCS: 87635; 87804; 87807; C9803; U0003; U0005 ==

== ENCOUNTER → 2022-02-19 | Outpatient (CLI) | payer MEDICARE, BC, SELFPAY ==
--- NOTE | 2022-02-19 17:02 | RAD_ITS ---
EXAM: XR RIGHT HIP WITH PELVIS WHEN PERFORMED, 1 VIEW CLINICAL INDICATION: PAIN TECHNIQUE: Frontal view of the right hip with pelvis when performed. This report was created using [employer] report generation technology. COMPARISON: None. FINDINGS: BONES/JOINTS: Lumbosacral posterior osteophyte fusion without complications. No suspicious lytic or sclerotic lesion of bone. No acute or healing fracture or malalignment. Sacroiliac joint is unremarkable. No widening of the pubic symphysis. The articular structures are unremarkable. SOFT TISSUES: Unremarkable. No soft tissue swelling or gas. VASCULATURE: Coarse calcification at the midline pelvis. Consider calcified fibroid. This could also be vascular. Atherosclerotic calcifications of the distal abdominal aorta and common iliac arteries. RAD/HIP, UNI W/ Pelvis 2-3 Views IMPRESSION: No acute or healing fracture or malalignment. No other findings involving the hip joints or pelvis to clinical presentation. Electronically Signed: Michael Godfrey MD at 19:05 EST Reading Location ID and State: [facility] / [place] Tel , Service support ,
--- NOTE | 2022-02-19 17:08 | RAD_ITS ---
EXAM: XR LUMBOSACRAL SPINE, 4 OR 5 VIEWS CLINICAL INDICATION: PAIN TECHNIQUE: Frontal, lateral and bilateral oblique views of the lumbar spine. This report was created using [employer] report generation technology. COMPARISON: None. FINDINGS: L4-S1 posterior osteometallic fusion without complications. Atherosclerotic calcifications of the nonaneurysmal distal abdominal aorta and common iliac arteries. Focal course calcification of the central pelvis could be vascular or could be due to fibroid disease. Multilevel spine degenerative changes without acute or healing fracture or malalignment. Soft tissues are otherwise unremarkable. RAD/L/S Spine Min 4 Views IMPRESSION: 1. Degenerative and postsurgical changes in the spine. 2. No acute osseous abnormalities. 3. No other findings to explain the clinical presentation. Electronically Signed: Michael Godfrey MD at 19:08 EST ,
== END | disposition home or self-care (01) ==
LOC: RAD 17:00
PROVIDERS: PCP Family Medicine Geriatric Medicine; Referring Provider Family Medicine Geriatric Medicine; Visit Provider Family Medicine Geriatric Medicine
DX: M54.50 Low back pain, unspecified (principal); M25.551 Pain in right hip
CPT/HCPCS: 72110; 73502

== ENCOUNTER → 2022-03-13 | Outpatient (CLI) | payer MEDICARE, BC, SELFPAY ==
--- NOTE | 2022-03-13 15:30 | US_ITS ---
STUDY: RENAL ULTRASOUND - COMPLETE REASON FOR EXAM: Female, 67 years old. KIDNEY DISEASE TECHNIQUE: Ultrasound evaluation of the kidneys was performed with real-time and static lennon-scale imaging. COMPARISON: None. FINDINGS: RIGHT KIDNEY: Normal location of the right kidney, which is normal in size. The right kidney measures 10.0 cm. There is a normal cortex of the right kidney. The renal cortex measures 1.8 cm. There is no right renal mass or cyst. There are no right renal calculi. There is no right hydronephrosis. DISTAL RIGHT URETER: There is non-visualization of the distal right ureter. There is no demonstrated right ureterovesical junction calculus. There is a visualized right ureteral jet. LEFT KIDNEY: Normal location of the left kidney, which is normal in size. The left kidney measures 9.0 cm. There is a normal cortex of the left kidney. The renal cortex measures 1.4 cm. There is no left renal mass or cyst. There are no left renal calculi. There is no left hydronephrosis. DISTAL LEFT URETER: There is non-visualization of the distal left ureter. There is no demonstrated left ureterovesical junction calculus. There is a visualized left ureteral jet. BLADDER: The distended urinary bladder has a volume of ml. The empty urinary bladder has a volume of ml. There is a normal wall thickness of the distended urinary bladder. There is no demonstrated mass within the urinary bladder. There are no demonstrated bladder calculi. US/Kidney and Bladder IMPRESSION: Normal ultrasound of the kidneys and urinary bladder. Electronically Signed: Alexis Baez MD at 17:23 EST ,
== END | disposition home or self-care (01) ==
LOC: US 15:30
PROVIDERS: PCP Family Medicine Geriatric Medicine; Referring Provider Internal Medicine Nephrology; Visit Provider Internal Medicine Nephrology
DX: N18.31 Chronic kidney disease, stage 3a (principal)
CPT/HCPCS: 76770

== ENCOUNTER → 2022-03-22 | Outpatient (CLI) | payer MEDICARE, BC, SELFPAY ==
[2022-03-22 12:39] LABS: Absolute Lymphocyte Count 1.37 X10^3/uL (0.83-4.51); Absolute Neutrophil Count 3.3 X10^3/uL (2.0-7.7); Basophil# 0.04 X10^3/uL; Basophil% 0.7 % (0-1); Eosinophil# 0.07 X10^3/uL; Eosinophils% 1.3 % (0-5); Hematocrit 41.5 % (37-47); Hemoglobin 13.8 g/dL (12.0-15.0); Lymphocyte # 1.37 X10^3/ul (0.83-4.51); Mean Corp Hgb Conc 33.3 g/dL (32-36); Mean Corpuscular Hgb 29.2 pg (27.0-32.0); Mean Corpuscular Volume 87.7 fL (81-99); Mean Platelet Vol. 11.5 fl (6.2-12.0); Monocyte# 0.62 X10^3/uL; Monocyte% 11.3 % (0-10); NRBC Flagged by Analyzer 0 % (0-5); Neutrophil # 3.34 X10^3/uL (2.7-7.7); Platelet Count 311 K/mm3 (150-450); RBC Distribution Width CV 13.5 % (11.6-14.6); RBC Distribution Width SD 43.8 fl (35.1-43.9); Red Blood Count 4.73 M/mm3 (4.2-5.4); White Blood Count 5.5 K/mm3 (4.4-11.0)
[2022-03-22 12:51] LABS: Vitamin D,25 Hydroxy 62.5 ng/mL
[2022-03-22 13:04] LABS: AST(SGOT) 27 U/L (15-37); Alanine Aminotransfer ALT/SGPT 42 U/L (13-56); Albumin, Serum 3.8 g/dL (3.2-5.0); Alkaline Phosphatase 51 U/L (45-117); Anion Gap 7 (5-15); BUN 24 mg/dL (7-18); BUN/Creat Ratio 21.8 RATIO (10-20); Calcium,Total 9.3 mg/dL (8.5-10.1); Chloride 102 mmol/L (98-107); EST Glomerular Filtration Rate 53 mL/min (>60); Est Glom Filt Rate - Afr Amer 64 mL/min (>60); Glucose 95 mg/dL (74-106); Potassium 3.1 mmol/L (3.5-5.1); Protein, Total 7.8 g/dL (6.4-8.2); Sodium Level 138 mmol/L (136-145); Thyroid Stim Hormone (TSH) 3.25 uIU/mL (0.358-3.74)
== END | disposition home or self-care (01) ==
PROVIDERS: PCP Family Medicine Geriatric Medicine; Visit Provider Family Medicine Geriatric Medicine
DX: I10 Essential (primary) hypertension (principal); E55.9 Vitamin D deficiency, unspecified
CPT/HCPCS: 36415; 80053; 82306; 84443; 85025

== ENCOUNTER → 2022-03-23 | Outpatient (CLI) | payer MEDICARE, BC, SELFPAY ==
[2022-03-23 15:27] LABS: Specimen Processing Control ND
[2022-03-23 15:28] LABS: Probe Check ND
== END | disposition home or self-care (01) ==
LOC: PSN 09:23
PROVIDERS: PCP Family Medicine Geriatric Medicine; Referring Provider Family Medicine Geriatric Medicine; Visit Provider Family Medicine Geriatric Medicine
DX: U07.1 COVID-19 (principal); R68.83 Chills (without fever)
CPT/HCPCS: 87635; 87804; 87807; C9803; U0003; U0005

== ENCOUNTER → 2022-04-05 | Outpatient (CLI) | payer MEDICARE, BC, SELFPAY ==
[2022-04-05 13:41] LABS: Anion Gap 4 (5-15); BUN 22 mg/dL (7-18); BUN/Creat Ratio 20.4 RATIO (10-20); Calcium,Total 9.5 mg/dL (8.5-10.1); Chloride 106 mmol/L (98-107); Creatinine, Serum 1.08 mg/dL (0.55-1.02); EST Glomerular Filtration Rate 54 mL/min (>60); Est Glom Filt Rate - Afr Amer 65 mL/min (>60); Glucose 101 mg/dL (74-106); Potassium 4.1 mmol/L (3.5-5.1); Sodium Level 139 mmol/L (136-145)
== END | disposition home or self-care (01) ==
LOC: POLAB3 11:22
PROVIDERS: PCP Family Medicine Geriatric Medicine; Visit Provider Family Medicine Geriatric Medicine
DX: E87.6 Hypokalemia (principal)
CPT/HCPCS: 36415; 80048

== ENCOUNTER → 2022-05-03 | Outpatient (CLI) | payer MEDICARE, BC, SELFPAY ==
[2022-05-03 13:38] LABS: Albumin, Serum 3.8 g/dL (3.2-5.0); BUN 23 mg/dL (7-18); Calcium,Total 9.6 mg/dL (8.5-10.1); Chloride 103 mmol/L (98-107); Creatinine, Serum 1.21 mg/dL (0.55-1.02); EST Glomerular Filtration Rate 47 mL/min (>60); Est Glom Filt Rate - Afr Amer 57 mL/min (>60); Glucose 91 mg/dL (74-106); Phosphorus 3.5 mg/dL (2.5-4.9); Potassium 4.1 mmol/L (3.5-5.1); Sodium Level 139 mmol/L (136-145)
== END | disposition home or self-care (01) ==
LOC: LAB 12:26
PROVIDERS: PCP Family Medicine Geriatric Medicine; Visit Provider Internal Medicine Nephrology
DX: N18.31 Chronic kidney disease, stage 3a (principal)
CPT/HCPCS: 36415; 80069

== ENCOUNTER 2022-05-25 14:34 | Emergency (ER) | payer MEDICARE, BC, SELFPAY ==
[2022-05-25 14:35] VITALS: BP 149/84; PULSE 67; RESP 14; TEMP 35.8; O2SAT 97; BMI 25.8
--- NOTE | 2022-05-25 18:44 | EDS_ITS ---
HPI History of Present Illness Chief Complaint: Lower Extremity Injury Informant: patient and spouse/S.O. Narrative Narrative: Injury left foot around 1 PM while going down steps. She stumbled falling on her knees and twisted her foot backwards. No head injuries. Took ibuprofen. History of right bunionectomy in the past history of back surgery. Able to walk however limping. No allergies. [facility] Medical History Depression Dry eye Hyperlipidemia Hypertension Hypothyroidism Osteoarthritis Home Medications atorvastatin 40 mg tablet 40 mg PO QHS 01/23/17 [History Last Taken 02/24/19 40] levothyroxine 50 mcg tablet 50 mcg PO DAILY 01/23/17 [History Last Taken 02/24/19 50] bupropion HCl 150 mg tablet,12 hr sustained-release 150 mg PO BID 07/07/18 [History Last Taken 02/24/19] potassium chloride 10 mEq tablet,extended release(part/cryst) (Klor-Con M) 10 meq PO DAILY 07/07/18 [History Last Taken 02/24/19] acetaminophen 325 mg tablet 650 mg PO Q6H PRN PRN Non-cardiac pain (mod-severe) 02/27/19 [Rx Last Taken Unknown] lisinopril 20 mg-hydrochlorothiazide 25 mg tablet 1 ea PO DAILY ##0 02/27/19 [Rx Last Taken 02/24/19 1 ea] clobetasol 0.05 % topical ointment 1 applic topical QHS #30 grams 07/10/21 [Rx Last Taken Unknown] ospemifene 60 mg tablet (Osphena) 60 mg PO QDAY #30 tabs 07/10/21 [Rx Last Taken Unknown] oxycodone-acetaminophen 5 mg-325 mg tablet 1 tab PO Q6H PRN PRN Pain 3 days #10 TABLETS 05/25/22 [Rx Last Taken Unknown] Allergy/AdvReac Type Severity Reaction Status Date / Time No Known Allergies Allergy Verified 05/25/22 14:35 Family History Mother Heart disease Father Heart disease Unknown , at 49 No problems noted. Surgical History History of delivery Hx of foot surgery Previous back surgery Social History Smoking Status: Former smoker alcohol intake: current details: social substance use type: does not use caffeine: Yes what type of physical activity do you participate in: walking seatbelt use: always do you feel safe at home: Yes additional social history: [place]- Disability Patient is RETIRED !!! ROS ROS ED Constitutional Constitutional ED: Denies chills, fever(s) or sweats Eyes Eyes: Denies change in vision ENT ENT ED: Denies dysphagia or sore throat Cardiovascular Cardiovascular: Denies chest pain, leg edema, palpitations or racing heartbeat Respiratory/Chest Respiratory/Chest: Denies cough, dyspnea or dyspnea on exertion Gastrointestinal Gastrointestinal: Denies abdominal pain, diarrhea, nausea or vomiting Genitourinary Genitourinary ED: Denies dysuria, hematuria or urinary frequency Musculoskeletal Musculoskeletal: Reports extremity pain; Denies back pain or neck pain Integumentary Denies rash or wounds Neurologic Neurologic: Denies headache(s), paresthesias or weakness EXAM Physical Exam Const Vital Signs: 05/25/22 14:35 Temperature 96.4 F L Temperature Source Temporal Pulse Rate 67 Respiratory Rate 14 Blood Pressure 149/84 H Blood Pressure Mean 105 Pulse Ox 97 Oxygen Delivery Method Room Air Positive well nourished and well developed General Appearance ED: well developed and NAD HEENT Reports moist mucous membranes normocephalic and atraumatic Eyes PERRL, EOMs intact bilaterally and conjunctivae normal General Eye ED: Yes normal appearance of both eyes Neck no lymphadenopathy and supple General: Negative for tenderness Chest Wall Chest: Negative for tenderness Resp normal respiratory effort and normal air movement Effort and Inspection: symmetric chest movement; Negative for respiratory distress Cardio regular rate, regular rhythm and no murmurs Peripheral Pulses: pulses 2+ throughout GI normal to inspection, nondistended, normoactive bowel sounds and non-tender Palpation: Negative for guarding or rebound tenderness present Back/Spine no CVA tenderness and no thoracic nor lumbar tenderness Extremity Extremity Narrative: Right lower extremity: Negative logroll abrasion infrapatellar no patellar tenderness knee extensor intact. No ankle foot tenderness. Neurovascular intact. Left lower extremity: Negative logroll, no knee or proximal fifth base tenderness. No medial mall tenderness there is minimal lateral malleoli tenderness. There is tenderness to the proximal fifth base. There is ecchymosis and swelling laterally across the midfoot. Skin intact. Neuro vas intact. General Extremety ED: Negative for edema or tenderness General Extremity: Negative for edema Neuro oriented x3 and no sensory deficits noted Sensorium / Orientation: awake and alert Skin no rashes or lesions noted and no wounds MDM MDM MDM Narrative Medical decision making narrative: Interventions / MDM: Differential diagnosis: Ankle sprain, foot sprain, fracture, abrasions Diagnosis considered but do not suspect: N/A My EKG interpretation: N/A Imaging independently reviewed and interpreted by myself: Left ankle 3 views, left foot 3 views no fracture or dislocation External documents reviewed: N/A Test considered but not ordered:N/A ED course: Ice was placed history oxycodone due to no relief with ibuprofen. X- rays were soft tissue swelling with no fractures. Placed in Aircast she did not require any assistive devices. She will continue ibuprofen short prescription for oxycodone to use as needed. Re-evaluation: stable Disposition discussed with patient/family/significant other: Patient and significant other Case discussed with consulting clinician: N/A Radiography Diagnostic Testing: Clinical Impression(s) from Imaging Studies Ankle X-Ray 05/25/22 18:55 IMPRESSION: There is soft tissue swelling. Electronically Signed: Guillaume Randolph MD at 19:17 EST , Foot X-Ray 05/25/22 18:55 IMPRESSION: Soft tissue swelling around the ankle and foot. Electronically Signed: Guillaume Randolph MD at 19:18 EST , Discharge Plan Triage Chief Complaint: Lower Extremity Injury ED Provider: Stanley Zavaleta Dx/Rx/DC Orders Clinical Impression: Sprain of foot, left, Left ankle sprain Instructions: ED Foot Sprain, ED Ankle Sprain (Adult) Prescriptions: New oxycodone-acetaminophen [oxycodone-acetaminophen] 5-325 mg tablet 1 tab PO Q6H PRN PRN (Reason: Pain) 3 Days Qty: 10 0RF No Action potassium chloride [Klor-Con M10] 10 mEq tablet,ER particles/crystals 10 meq PO DAILY bupropion HCl 150 mg tablet sustained-release 12 hr 150 mg PO BID clobetasol 0.05 % ointment 1 applic topical QHS Qty: 30 3RF Rx Instructions: apply thin layer; massage gently into affected area nightly x 6 weeks then 1- 2x weekly Osphena 60 mg tablet 60 mg PO QDAY Qty: 30 12RF Rx Instructions: give with food (meal/snack) atorvastatin 40 MG tablet 40 mg PO QHS levothyroxine 50 MCG tablet 50 mcg PO DAILY acetaminophen 325 MG tablet 650 mg PO Q6H PRN PRN (Reason: Non-cardiac pain (mod-severe)) 0RF lisinopril-hydrochlorothiazide 1 EACH tablet 1 ea PO DAILY Qty: 0 0RF Primary Care Provider: Kameron Lin Chi Referrals: Kameron Lin Chi, MD [Primary Care Provider] - 1 Week if not improving Activity Restrictions/Additional Instructions: Left ankle and foot x-ray negative. Ibuprofen 600 mg every 6 hours for next 2 days then as needed. Oxycodone as needed. Follow-up with your doctor. Disposition Disposition: Home, Self Care Discharge Date/Time: 05/25/22 20:58
[2022-05-25] MEDS: oxyCODONE 5 MG Tablet PO (18:50)
--- NOTE | 2022-05-25 18:55 | RAD_ITS ---
EXAM: XR LEFT FOOT COMPLETE, 3 OR MORE VIEWS CLINICAL INDICATION: injury TECHNIQUE: Frontal, lateral and oblique views of the left foot. This report was created using [employer] report generation technology. COMPARISON: None. FINDINGS: BONES/JOINTS: Unremarkable. No acute fracture. No subluxation. Normal alignment. Preservation of the joint space. No sclerotic or destructive changes observed. SOFT TISSUES: Soft tissue swelling around the ankle and foot. No radiopaque foreign body. RAD/Foot min 3 Views IMPRESSION: Soft tissue swelling around the ankle and foot. Electronically Signed: Guillaume Randolph MD at 19:18 EST ,
--- NOTE | 2022-05-25 18:55 | RAD_ITS ---
STUDY: XR Ankle Min 3 Views REASON FOR EXAM: Female, 67 years old. ANKLE PAIN TECHNIQUE: XR Ankle Min 3 Views LEFT COMPARISON: None. FINDINGS: Normal visualized distal tibia and fibula. Normal medial and lateral malleoli. Normal tibiotalar articulation and ankle mortise. The visualized subtalar, talonavicular, calcaneocuboid and tarsal articulations are normal. Normal talus, calcaneus, and tarsal bones. There is soft tissue swelling around the ankle. RAD/Ankle min 3 Views IMPRESSION: There is soft tissue swelling. Electronically Signed: Guillaume Randolph MD at 19:17 EST ,
== END 2022-05-25 20:58 | disposition home or self-care (01) ==
PROVIDERS: Emergency Provider Emergency Medicine; PCP Family Medicine Geriatric Medicine; Visit Provider Emergency Medicine
DX: S93.402A Sprain of unspecified ligament of left ankle, initial encounter (principal); Z87.891 Personal history of nicotine dependence; E78.5 Hyperlipidemia, unspecified; I10 Essential (primary) hypertension; W10.9XXA Fall (on) (from) unspecified stairs and steps, initial encounter
CPT/HCPCS: 73610; 73630; 99283

== ENCOUNTER → 2022-07-17 | Outpatient (CLI) | payer MEDICARE, BC, SELFPAY ==
--- NOTE | 2022-07-17 10:22 | BI_ITS ---
MAMMOGRAPHY - BILATERAL SCREENING 3-D TOMOSYNTHESIS REASON FOR EXAM: Female, 67 years old. Routine screening PERTINENT HISTORY: No significant family history. TECHNIQUE: 2-D mammograms and 3-D Tomosynthesis of the breast (s) were performed. CAD was performed. COMPARISON: None. FINDINGS: The breast composition is composed of scattered fibroglandular density. Scattered benign calcifications are seen. No dense spiculated masses or suspicious microcalcifications are identified. No architectural distortion is identified. There is no skin thickening or retraction. There has been no significant change since the prior study. BI/SCRN MAMM (CAD)W/ISAAC BILAT IMPRESSION: No mammographic signs of malignancy. Routine yearly mammograms recommended. ASSESSMENT CATEGORY: BIRADS Category 1: Negative. A letter regarding these results will be sent to the patient by the facility within 30 days. FOLLOW UP RECOMMENDATION: Yearly follow up mammogram recommended. (A) Approximately 10% of breast cancers are not detected by mammography. A normal mammogram should not delay biopsy of a clinically suspicious abnormality. Electronically Signed: Brian Jones MD at 13:44 EDT ,
--- NOTE | 2022-07-17 10:30 | BD_ITS ---
STUDY: DUAL ENERGY X-RAY ABSORPTIOMETRY / DXA REASON FOR EXAM: Female, 67 years old. M810 TECHNIQUE: Bone Mineral Density (BMD) measurements of lumbar spine and bilateral hips were obtained. COMPARISON: Comparison is made with prior study November 14, 2011. FINDINGS: Lumbar Spine (L1-L4): g/cm2 (0.830) / T-score (-1.4) / Z-score (0.3) Findings are suggestive of osteopenia with a low fracture risk. Left Femur Total: g/cm2 (0.702) / T-score (-2.0) / Z-score (-0.7) Left Femoral Neck: g/cm2 (0.507) / T-score (-3.1) / Z-score (-1.5) Right Femur Total: g/cm2 (0.730) / T-score (-1.7) / Z-score (-0.5) Right Femoral Neck: g/cm2 (0.559) / T-score (-2.6) / Z-score (-1.1) The T-Scores on the most recent prior examination were: Lumbar Spine (L1-L4): There has been worsening of bone density since the previous examination. Left Femur Total: which represents a worsening of 6.2%. Right Femur Total: which represents a worsening of 11.7%. BD/Dexa Bone Density Study IMPRESSION: The patient is considered osteoporotic as outlined below according to World Er[employer] Organization (WHO) criteria with a high fracture risk. There has been worsening of bone density since the previous examination. Reference Information: The T-score is the number of standard deviations above or below the standard which is normal for young adults at their peak bone mineral density. The World Health Organization (WHO) interprets the T-scores as follows: Above -1 Normal bone density Between -1 and -2.5 Osteopenia Equal to / or below -2.5 Osteoporosis As a practical clinical guideline, osteopenia may be graded as follows: Mild -1 through -1.5 Moderate -1.6 through -2.0 Severe -2.1 through -2.4 The Z-score is the number of standard deviations above or below age-matched controls. A Z-score of less than -1.5 would be considered abnormal. References: 1. NIH Osteoporosis and Related Bone Diseases www osteo.org 2. International Society for Clinical Densitometry www iscd.org 3. National Osteoporosis Foundation www nof.org Electronically Signed: Gaudencio Hoffman MD at 15:39 EDT ,
== END | disposition home or self-care (01) ==
PROVIDERS: PCP Family Medicine Geriatric Medicine; Visit Provider Family Medicine Geriatric Medicine
DX: Z12.31 Encounter for screening mammogram for malignant neoplasm of breast (principal); M81.0 Age-related osteoporosis without current pathological fracture
CPT/HCPCS: 77063; 77067; 77080

== ENCOUNTER → 2022-09-13 | Outpatient (CLI) | payer MEDICARE, BC, SELFPAY ==
[2022-09-13 11:59] LABS: Absolute Lymphocyte Count 1.51 X10^3/uL (0.83-4.51); Absolute Neutrophil Count 7.8 X10^3/uL (2.0-7.7); Basophil# 0.11 X10^3/uL; Eosinophil# 0.39 X10^3/uL; Eosinophils% 3.7 % (0-5); Hematocrit 43.8 % (37-47); Hemoglobin 14.1 g/dL (12.0-15.0); Lymphocyte # 1.51 X10^3/ul (0.83-4.51); Lymphocyte % 14.3 % (19-41); Mean Corp Hgb Conc 32.2 g/dL (32-36); Mean Corpuscular Hgb 28.9 pg (27.0-32.0); Mean Corpuscular Volume 89.8 fL (81-99); Mean Platelet Vol. 11.5 fl (6.2-12.0); Monocyte# 0.71 X10^3/uL; Monocyte% 6.7 % (0-10); NRBC Flagged by Analyzer 0 % (0-5); Neutrophil # 7.78 X10^3/uL (2.7-7.7); Neutrophil % 73.9 % (47-70); Platelet Count 309 K/mm3 (150-450); RBC Distribution Width CV 13.3 % (11.6-14.6); Red Blood Count 4.88 M/mm3 (4.2-5.4); White Blood Count 10.5 K/mm3 (4.4-11.0)
[2022-09-13 12:15] LABS: Vitamin D,25 Hydroxy 75.4 ng/mL
[2022-09-13 12:22] LABS: AST(SGOT) 32 U/L (15-37); Alanine Aminotransfer ALT/SGPT 55 U/L (13-56); Albumin, Serum 3.9 g/dL (3.2-5.0); Alkaline Phosphatase 56 U/L (45-117); Anion Gap 7 (5-15); BUN 25 mg/dL (7-18); BUN/Creat Ratio 23.6 RATIO (10-20); Calcium,Total 10.1 mg/dL (8.5-10.1); Chloride 100 mmol/L (98-107); Creatinine, Serum 1.06 mg/dL (0.55-1.02); EST Glomerular Filtration Rate 55 mL/min (>60); Est Glom Filt Rate - Afr Amer 67 mL/min (>60); Globulin 3.8 g/dL (2.2-4.2); Glucose 90 mg/dL (74-106); Potassium 4.4 mmol/L (3.5-5.1); Protein, Total 7.7 g/dL (6.4-8.2); Sodium Level 135 mmol/L (136-145); Thyroid Stim Hormone (TSH) 3.21 uIU/mL (0.358-3.74)
== END | disposition home or self-care (01) ==
LOC: LAB 11:23
PROVIDERS: PCP Family Medicine Geriatric Medicine; Referring Provider Family Medicine Geriatric Medicine; Visit Provider Family Medicine Geriatric Medicine
DX: I10 Essential (primary) hypertension (principal); E55.9 Vitamin D deficiency, unspecified
CPT/HCPCS: 36415; 80053; 82306; 84443; 85025

== ENCOUNTER → 2022-11-22 | Outpatient (CLI) | payer MEDICARE, BC, SELFPAY ==
--- NOTE | 2022-11-22 10:30 | MRI_ITS ---
STUDY: MRI LUMBAR SPINE WITHOUT CONTRAST REASON FOR EXAM: Female, 67 years old. RADICULOPATHY TECHNIQUE: Standardized fat and water weighted pulse sequences were obtained in the sagittal and axial planes. COMPARISON: Lumbar spine x-rays February 19, 2022. FINDINGS: T12-L1: Normal endplates. Normal disc height, hydration and morphology. Normal bilateral facet joints. Normal central canal and bilateral lateral recesses. Normal bilateral intervertebral neural foramina. Normal lumbar lordosis. There is no substantial scoliosis. Normal conus medullaris that terminates at the T12-L1 disc level. L1-2: Minimal disc desiccation and height loss with no significant degenerative endplate changes. There is a small, broad-based posterior disc herniation more notably involving the left side where it touches without displacing or impinging the descending L2 nerve roots on the left. There is no central spinal canal or neural foraminal narrowing. No facet arthropathy. L2-3: Significant intervertebral disc height loss and disc desiccation. There are significant degenerative endplate sclerosis and signal changes with significant edema especially on the right side superior and inferior endplates. Large broad-based posterior disc herniation as well as facet hypertrophy significantly narrows the thecal sac resulting in almost complete absence of CSF signal between the crowded nerve roots. Measuring 5 mm in AP dimension. There is trace left and moderate right neural foraminal narrowing with bilateral facet arthropathy and ligamentum flavum thickening. L3-4: Significant intervertebral disc height loss and disc desiccation and endplate sclerosis. Moderate degenerative signal changes with significant increased T1 signal around the endplates. Minimal endplate edema. There is significant facet arthropathy, ligamentum flavum thickening and posterior disc herniation together resulting in severe neural foraminal narrowing with near complete effacement of CSF signal within the thecal sac and significant impingement of the descending nerve roots. There is [id number] right and moderate to severe left neural foraminal narrowing. L4-5: Transpedicular screws at L4, L5 and S1 bilaterally. There is no central spinal canal or neural foraminal narrowing at these levels. Large bilateral laminectomies are present at L4 and L5. In the laminectomy space, between the locking head screws at L4 and L5, there is a well delineated fluid collection, 5.2 cm in width, 4.9 cm craniocaudal length and up to 1.9 cm AP dimension. There is no mass effect on the adjacent thecal sac which appears intact. This may represent a chronic postoperative seroma. Well encapsulated pseudomeningocele felt to be less likely. Lesion shows homogenous T2 and T1 signal. No central spinal canal or neural foraminal narrowing at this level. L5-S1: Transpedicular screws at L5 laminectomy with posterior fluid collection as above. There is no central spinal canal or neural foraminal narrowing at this level. Normal visualized sacral ala. Normal visualized paraspinous soft tissue structures. Note of a 9 mm homogenous T2 bright, T1 dark cyst superior pole left kidney. MRI/Spine Lumbar (Routine) IMPRESSION: Severe central spinal canal stenosis at L2-3 and L3-4 levels. Moderate right neural foraminal narrowing at L2-3. At least moderate, left greater than right neural foraminal narrowing at L3-4. L3-4 through L5-S1 posterior spinal fusion hardware and laminectomy with no central spinal canal or neural foraminal narrowing at these levels. Well-formed homogenous fluid collection, 5.2 x 4.9 x 1.9 cm posterior to the thecal sac at L4 and L5 levels suggesting chronic seroma. 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 No appreciable communication with the thecal sac. No neural elements visualized within the structure. Electronically Signed: Stevan Gordon DO at 22:49 EDT ,
== END | disposition home or self-care (01) ==
LOC: MRI 10:07
PROVIDERS: PCP Family Medicine Geriatric Medicine; Referring Provider Anesthesiology Pain Medicine; Visit Provider Anesthesiology Pain Medicine
DX: M54.16 Radiculopathy, lumbar region (principal); M96.1 Postlaminectomy syndrome, not elsewhere classified
CPT/HCPCS: 72148

== ENCOUNTER → 2023-01-23 | Outpatient (CLI) | payer MEDICARE, BC, SELFPAY ==
[2023-01-23 13:02] LABS: Absolute Lymphocyte Count 1.69 X10^3/uL (0.83-4.51); Absolute Neutrophil Count 7.2 X10^3/uL (2.0-7.7); Basophil# 0.09 X10^3/uL; Basophil% 0.9 % (0-1); Eosinophil# 0.18 X10^3/uL; Eosinophils% 1.8 % (0-5); Hematocrit 43.4 % (37-47); Hemoglobin 13.9 g/dL (12.0-15.0); Lymphocyte # 1.69 X10^3/ul (0.83-4.51); Lymphocyte % 16.9 % (19-41); Mean Corpuscular Hgb 29.1 pg (27.0-32.0); Mean Platelet Vol. 11.9 fl (6.2-12.0); Monocyte# 0.79 X10^3/uL; Monocyte% 7.9 % (0-10); NRBC Flagged by Analyzer 0 % (0-5); Neutrophil # 7.23 X10^3/uL (2.7-7.7); Neutrophil % 72.2 % (47-70); Platelet Count 316 K/mm3 (150-450); RBC Distribution Width CV 12.4 % (11.6-14.6); RBC Distribution Width SD 41.1 fl (35.1-43.9); Red Blood Count 4.77 M/mm3 (4.2-5.4)
[2023-01-23 13:24] LABS: Partial Thromboplast Time 35.9 Seconds (24.1-36.2); Prothrombin Time (Protime)PT. 13.3 SECONDS (11.7-14.9)
[2023-01-23 14:37] LABS: AST(SGOT) 27 U/L (15-37); Alanine Aminotransfer ALT/SGPT 39 U/L (13-56); Albumin, Serum 3.9 g/dL (3.2-5.0); Alkaline Phosphatase 44 U/L (45-117); Anion Gap 5 (5-15); BUN 24 mg/dL (7-18); BUN/Creat Ratio 21.2 RATIO (10-20); Calcium,Total 10.2 mg/dL (8.5-10.1); Chloride 102 mmol/L (98-107); Creatinine, Serum 1.13 mg/dL (0.55-1.02); EST Glomerular Filtration Rate 51 mL/min (>60); Est Glom Filt Rate - Afr Amer 62 mL/min (>60); Glucose 101 mg/dL (74-106); Potassium 3.8 mmol/L (3.5-5.1); Protein, Total 7.9 g/dL (6.4-8.2); Sodium Level 137 mmol/L (136-145)
== END | disposition home or self-care (01) ==
LOC: LAB 12:32
PROVIDERS: PCP Family Medicine Geriatric Medicine; Referring Provider Family Medicine Geriatric Medicine; Visit Provider Family Medicine Geriatric Medicine
DX: I10 Essential (primary) hypertension (principal)
CPT/HCPCS: 36415; 80053; 85025; 85610; 85730

== ENCOUNTER → 2023-02-05 | Outpatient (CLI) | payer MEDICARE, BC, SELFPAY | END | disposition home or self-care (01) | LOC: PSN 09:48 | PROVIDERS: PCP Family Medicine Geriatric Medicine; Referring Provider Family Medicine Geriatric Medicine; Visit Provider Family Medicine Geriatric Medicine | DX: R68.83 Chills (without fever) (principal) | CPT/HCPCS: 87635; 87804; 87807; C9803 ==

== ENCOUNTER → 2023-02-07 | Outpatient (CLI) | payer MEDICARE, BC, SELFPAY ==
--- NOTE | 2023-02-07 14:34 | STRESSREP ---
Stress Test Report Date: 02/07/2023 Procedure: Pharmacologic stress nuclear imaging study Indications: Preoperative evaluation, abnormal EKG Consent: Per the patient Procedure: The patient underwent pharmacologic (Regadenoson) evaluation with a peak heart rate of 82 beats per minute (53%predicted maximal heart rate) and a peak blood pressure of 158/94 mmHg. The baseline ECG demonstrated normal sinus rhythm, nonspecific intraventricular conduction delay. EKG during lexiscan infusion revealed no significant ischemic changes. EKG post infusion revealed no significant ischemic changes [There were no cardiac dysrhythmias pretest, during pharmacologic infusion, or recovery]. [There was no complaint of chest discomfort during pharmacologic infusion or recovery]. The examination was discontinued secondary to completion of protocol. Impression: 1. Lexiscan stress test test is negative for Lexiscan infusion induced EKG changes of ischemia. 2. Lexiscan stress test test is negative for Lexiscan infusion induced chest pain. 3. Results of the nuclear portion of the test is as below Myocardial perfusion imaging study: Technique: The patient was injected with 12 millicuries of technetium 99m Cardiolite and subsequently rest SPECT Cardiolite nuclear imaging was obtained in the horizontal long, vertical long, and short axis views. The patient underwent pharmacologic [Regadenoson 0.4mg] evaluation. Please see above for details. The patient was injected with 35.6 millicuries of technetium 99m Cardiolite and subsequently stress SPECT Cardiolite nuclear imaging was obtained in the horizontal long, vertical long, and short axis views. A gated Cardiolite study at peak stress was obtained. Interpretation: Rest and stress SPECT Cardiolite nuclear imaging status post realignment, normalization, and attenuation correction demonstrate mild fixed apical defect. No significant reversible defect suggestive of significant ischemia. Gated images reveal mild apical hypokinesis. The reported LVEF is 58%. Old apical myocardial infarction cannot be excluded. Impression: 1. There is no evidence of significant ischemia. Possible prior apical myocardial infarction. 2. Estimated ejection fraction is 58%. This note was generated with [employer] software. It may contain incorrect words, spelling, and punctuation that were not noted in checking the note before signing.
== END | disposition home or self-care (01) ==
PROVIDERS: PCP Family Medicine Geriatric Medicine; Referring Provider Family Medicine Geriatric Medicine; Visit Provider Family Medicine Geriatric Medicine
DX: R94.31 Abnormal electrocardiogram [ECG] [EKG] (principal)
CPT/HCPCS: 78452; 93017; A9500; A4216; J2785

== ENCOUNTER → 2023-04-17 | Outpatient (CLI) | payer MEDICARE, BC, SELFPAY ==
--- NOTE | 2023-04-17 10:02 | ECHOD_ITS ---
Reason For Study: Preop Procedure This was a 2D Doppler, Color Flow transthoracic echocardiogram. Exam performed in department. Left Ventricle Normal LV size. Left ventricular systolic function is normal. The estimated ejection fraction is 55 %. Normal diastology for age. No regional wall motion abnormalities noted. Right Ventricle Normal RV size. Normal systolic function. Atria The left and right atria are normal. Mitral Valve The mitral valve is structurally normal. No prolapse or stenosis seen. Mild (1+) mitral valve insufficiency. Tricuspid Valve Normal tricuspid valve. Mild (1+) tricuspid valve insufficiency. Right ventricular systolic pressure estimated to be 32 mmHg. Aortic Valve Trisinus/trileaflet aortic valve. Mild-Moderate (1-2+) aortic valve insufficiency. Pulmonic Valve Normal pulmonic valve. Trivial pulmonic valve insufficiency. Great Vessels Mildly calcified aortic root. Normal sized aortic root. Pericardium/Pleural No pericardial effusion. MMode/2D Measurements & Calculations LVIDd: 4.3 cm IVSd: 1.1 cm Ao root diam: 2.6 cm LVIDs: 3.2 cm LVPWd: 1.0 cm RVDd: 3.4 cm FS: 25.9 % LAV(MOD-bp): 41.2 ml LVAd ap4: 25.8 cm2 SV(MOD-sp4): 45.2 ml LAV(MOD-bp) Indexed: 22.6 ml/m2 LVLd ap4: 7.0 cm LAV(MOD-sp2): 48.4 ml EDV(MOD-sp4): 79.9 ml LAV(MOD-sp4): 33.7 ml EDV(sp4-el): 81.1 ml LVAs ap4: 14.8 cm2 LVLs ap4: 5.5 cm ESV(MOD-sp4): 34.7 ml ESV(sp4-el): 33.4 ml EF(MOD-sp4): 56.6 % EF(sp4-el): 58.8 % SV(sp4-el): 47.6 ml LA A4 area: 14.6 cm2 LA dimension(2D): 3.5 cm RA A4 area: 10.3 cm2 TAPSE: 2.4 cm Time Measurements MV dec time: 0.24 sec Doppler Measurements & Calculations MV E max thor: 61.2 cm/sec Lat Peak E' Thor: 7.6 cm/sec Med Peak E' Thor: 5.9 cm/sec MV A max thor: 84.9 cm/sec E/E' lat: 8.0 E/E' med: 10.3 MV E/A: 0.72 Ao V2 max: 156.2 cm/sec AI max thor: 459.8 cm/sec MV dec slope: 254.9 cm/sec2 Ao max P.8 mmHg AI max P.6 mmHg Ao V2 mean: 106.4 cm/sec Ao mean P.0 mmHg AI dec slope: 207.5 cm/sec2 Ao V2 VTI: 31.6 cm AI P1/2t: 649.0 msec AV (velocity ratio): 0.74 LV V1 max: 109.7 cm/sec PA V2 max: 86.5 cm/sec TR max thor: 267.5 cm/sec LV V1 max P.8 mmHg TR max P.6 mmHg LV V1 mean P.3 mmHg LV V1 mean: 87.8 cm/sec LV V1 VTI: 23.4 cm ECHO/Echo Complete Interpretation Summary The estimated ejection fraction is 55 %. Mild (1+) mitral valve insufficiency. Mild (1+) tricuspid valve insufficiency. Mild-Moderate (1-2+) aortic valve insufficiency. Mildly calcified aortic root. Ordering Physician: Elizabeth Harrison Referring Physician: Kameron Lin Chi Performed By: Anahi Sorensen RDCS, RVT
== END | disposition home or self-care (01) ==
LOC: CVS 10:01
PROVIDERS: PCP Family Medicine Geriatric Medicine; Referring Provider Internal Medicine Cardiovascular Disease; Visit Provider Internal Medicine Cardiovascular Disease
DX: Z01.818 Encounter for other preprocedural examination (principal)
CPT/HCPCS: 93306

== ENCOUNTER → 2023-06-11 | Outpatient (CLI) | payer MEDICARE, BC, SELFPAY ==
--- OUTSIDE RECORDS SUMMARY | 2023-06-11 11:17 | XMS RPT_ITS | CCD ---
Author Name Unknown Address [address] [place] [address] Organization [facility] Care Team Providers Care Biomedical Engineering Technologist Name Role Phone Kameron Lin Chi Primary Care Provider KAMERON LIN CHI Primary Care Unavailable DWIGHT KAHN Attending Unavailable KAMERON LIN CHI Primary Care Unavailable DWIGHT KAHN Referring Unavailable Kameron Lin Chi Primary Care Provider Medications Completed/Discontinued Medications Medication Drug Class(es) Dates Sig (Normalized) Sig (Original) atorvastatin 40 mg oral tablet (4 sources) HMG-CoA Reductase Inhibitor Start: 07-29-2022 take 1 tablet by mouth once daily atorvastatin (LIPITOR) 40 mg tablet Take 1 tablet by mouth once daily. 0 07/29/2022 Active Problems Active Problems Problem Classification Problem Date Documented Da te Episodic/Chronic Acquired foot deformities (2 sources) Hallux valgus; Translations: [Hallux valgus (acquired), right foot] 10-15-2022 Chronic Other connective tissue disease (2 sources) Pain in right foot; Translations: [Pain in right foot] Episodic Other connective tissue disease (1 source) Pain in right foot; Translations: [Pain in right foot] Onset: 10-15-2022 Episodic Past or Other Problems Problem Classification Problem Date Documented Da te Episodic/Chronic Spondylosis; intervertebral disc disorders; other back problems (3 sources) Chronic low back pain; Translations: [Lumbago with sciatica, left side] Onset: 03-26-2016 03-26-2016 Episodic Results Test Name Value Interpretation Reference Range Facil ity Encounters Encounter Date Encounter Type Care Provider Facility Start: 10-15-2022 End: 10-15-2022 ambulatory KAMERON LIN Facility:[facility] Start: 10-15-2022 End: 10-15-2022 Patient encounter procedure Dwight Kahn Work Phone: Podiatry Procedures Date Procedure Procedure Detail Performing Clinician Start: 10-15-2022 Radex foot complete minimum 3 views Dwight Kahn Work Phone: Plan of Treatment Date Care Activity Detail Author Start: 01-13-2023 COVID-19 VACCINE (3 - Moderna series) COVID-19 VACCINE (3 - Moderna series) [facility] Start: 12-07-2022 Covid-19 Vaccine (2022- season) Covid-19 Vaccine ( season) [facility] Start: 12-07-2022 Influenza vaccination [facility] Start: 04-08-2022 ADVANCE DIRECTIVE DISCUSSION ADVANCE DIRECTIVE DISCUSSION [facility] Start: 04-08-2022 DEPRESSION ASSESSMENT DEPRESSION ASSESSMENT [facility] Start: 2022 BONE DENSITY BONE DENSITY [facility] Start: 2022 Bone Density Screening Bone Density Screening [facility] Start: 2022 Pneumococcal Vaccine: 65+ (1 - PCV) Pneumococcal Vaccine: 65+ (1 - PCV) [facility] Start: 2022 PNEUMOCOCCAL: 65+ (1 - PCV) PNEUMOCOCCAL: 65+ (1 - PCV) [facility] Start: 2017 RSV Vaccine (1 - 1-dose 60+ series) RSV Vaccine (1 - 1-dose 60+ series) [facility] Start: 2007 SHINGRIX VACCINE (1 of 2) SHINGRIX VACCINE (1 of 2) [facility] Start: 2002 COLOGUARD (FIT-DNA) COLOGUARD (FIT-DNA) [facility] Start: 2002 Colonoscopy COLONOSCOPY [facility] Start: 2002 COLORECTAL CANCER SCREENING COLORECTAL CANCER SCREENING [facility] Start: [address] COLONOGRAPHY [facility] Start: 2002 DIABETES SCREEN DIABETES SCREEN [facility] Start: 2002 Diabetes Screening Diabetes Screening [facility] Start: 2002 FECAL OCCULT BLOOD FECAL OCCULT BLOOD [facility] Start: 2002 Lipid 1996 panel - Serum or Plasma Lipid Screening [facility] Start: 2002 LIPID SCREEN LIPID SCREEN [facility] Start: 2002 SIGMOIDOSCOPY SIGMOIDOSCOPY [facility] Start: 1997 Mammography [facility] Start: 01-05-1976 Urine microalbumin profile [facility] Start: 1975 HEPATITIS C SCREENING HEPATITIS C SCREENING [facility] Start: 1975 HIV SCREENING HIV SCREENING [facility] Start: 1957 COVID-19 VACCINE (#1) COVID-19 VACCINE (#1) [facility] End: 11-04-2023 XR FOOT GENERAL 3V AP/LAT/OBL RIGHT XR FOOT GENERAL 3V AP/LAT/OBL RIGHT Radiology Routine Pain in right foot 1 Occurrences starting 10/05/2022 until 11/04/2023 [facility] Work Phone: Immunizations Immunization Date Immunization Notes Care Provider Fa cility 03-20-2021 influenza virus vacc ine, unspecified formulation Xr Mob Work Phone: [facility] Payers Date Payer Category Payer Medicare MEDICARE MEDICAR E A AND B [id number] 2021-Present [phone] [address] [address] [place] [address] Medicare [id number] 2021 Medicare [id number] 2021 Medicare [id number] 2021 Unknown TIFFANY JOY DICARE SUPPLEMENT [id number] 2021-Present [phone] [address] [place] [address] [facility] [id number] Social History Date Type Detail Facility [facility]: [facility] Start: 06-10-2013 End: 10-15-2022 Tobacco use and exposure Smokeless tobacco non-user [facility] Start: 03-26-2016 Alcohol intake Not Asked [facility] Start: 1955 Sex Assigned At Not on file [facility] Start: 10-15-2022 Tobacco smoking stat us NHIS Ex-smoker [facility] History of tobacco use Current smoker [facility] History of tobacco use Cigarette Smoker [facility] Start: 10-15-2022 Alcohol intake Ex-drinker (finding) [facility] Start: 10-15-2022 History of Social function [facility] Start: 10-15-2022 Tobacco use panel [facility] National Score (1-10 0), lower number is lower risk 51 [facility] Clinical Notes 10-15-2022 Yuridia Dominguez LPN - 10/15/2022 12:00 PM EDDwight Irene - 10/15/2022 11:36 AM EDAsia Moreno RN - 10/15/2022 11:25 AM EDTPatient Instructions Note Date & Type Note Facility 10-15-2022 Note HNO ID: [id number] Author: Yuridia Dominguez LPN Service: ? Author Type: LICENSED NURSE Type: Progress Notes Filed: 10/15/2022 12:42 PM Note Text: Per Dr. Kahn, Jody was provided with Powerstep gel inserts, size 9, and instructed/educated in its application, wear, and care. All questions were answered, and patient was able to demonstrate competence with the necessary skills to utilize the above equipment. Per Dr. Kahn, Jody was provided with right dancer pad, and instructed/educated in its application, wear, and care. All questions were answered, and patient was able to demonstrate competence with the necessary skills to utilize the above equipment. Yuridia Dominguez LPN [facility] 10-15-2022 Note HNO ID: [id number] Author: Dwight Kahn Service: ? Author Type: Physician Type: Progress Notes Filed: 10/15/2022 12:42 PM Note Text: Initial Podiatric Office Visit: Chief Complaint: This 67 year old female who presents with chief complaint:bunion of right foot HPI Patient presents to clinic for evaluation of bunion of right foot. She has history of bunionectomy performed in 2019. She states the bunion has since returned and is starting to cause her pain. She states the pain is not horrible but when she is active, she states the pain is annoying. She states the pain is located to the great toe. Patient treats with rest, medication and change in shoe gear. PAIN EVALUATION 10/15/2022 1125 Pain Level: 0 3/10 when it hurts Pain Location: Foot-Right Duration Amount of Time: 4 Duration Units: Years Frequency: Intermittent Intervention/Comfort measure: Relaxation;Reposition No results found for: HBA1C PCP: Kameron Lin MD PAST MEDICAL HISTORY Diagnosis Date Spinal stenosis Current Outpatient Medications Medication Sig baclofen 10 mg tablet Take 1 tablet by mouth daily at bedtime. gabapentin (NEURONTIN) 300 mg capsule Take 1 capsule by mouth daily at bedtime. atorvastatin (LIPITOR) 40 mg tablet Take 1 tablet by mouth once daily. buPROPion SR (ZYBAN SR; WELLBUTRIN SR) 150 mg 12 hr tablet Take 150 mg by mouth twice daily. KLOR-CON M20 20 mEq tablet Take 20 mEq by mouth once daily. Calcium Citrate-Vitamin D3 (CITRACAL+D) 315 mg-6.25 mcg (250 unit) tab Take 1 tablet by mouth twice daily with meals. lisinopril-hydroCHLOROthiazide (ZESTORETIC) 20-25 mg per tablet Take 1 tablet by mouth once daily. Multivitamin capsule Take 1 capsule by mouth once daily. levothyroxine (SYNTHROID) 50 mcg tablet Take 50 mcg by mouth daily before breakfast. meloxicam (MOBIC) 15 mg tablet Take 15 mg by mouth once daily. (Patient not taking: Reported on 10/15/2022) cyclobenzaprine (FLEXERIL) 10 mg tablet Take 1 tablet by mouth twice daily as needed. (Patient not taking: Reported on 10/15/2022) lisinopril-hydrochlorothiazide (ZESTORETIC) 20-12.5 mg per tablet Take 1 tablet by mouth once daily. (Patient not taking: Reported on 10/15/2022) CITALOPRAM HYDROBROMIDE (CELEXA ORAL) Take by mouth. (Patient not taking: Reported on 10/15/2022) No current facility-administered medications for this visit. ALLERGIES No Known Allergies PAST SURGICAL HISTORY Procedure Laterality Date LUMBAR SPINE FUSN,POST INTERBODY FAMILY HISTORY Problem Relation Age of Onset Coronary Artery Disease Father Social History Tobacco Use Smoking status: Former Types: Cigarettes Smokeless tobacco: Never Vaping Use Vaping Use: Never used Substance Use Topics Alcohol use: Not Currently Drug use: Never REVIEW OF SYSTEMS GENERAL: Negative for Malaise, significant weight loss, fever RESPIRATORY: Negative for cough, wheezing and shortness of breath CARDIOVASCULAR: Negative for chest pain, leg swelling and palpitations GI: Negative for abdominal discomfort, blood in stools or black stools and change in bowel habits : Negative for dysuria, frequency and incontinence MUSCULOSKELETAL: Negative for joint pain or swelling, back pain, and muscle pain. SKIN: Negative for lesions, rash, and itching. HEMATOLOGY/LYMPHOLOGY Negative for prolonged bleeding, bruising easily, and swollen nodes. ENDOCRINE: Negative for cold or heat intolerance, polyuria, polydipsia and goiter. NEURO: negative Physical Exam: Constitutional: Pt is a well developed 67 year old female who is alert, oriented and cooperative Eyes: Following during examination. No redness or drainage. Respiratory: RR normal and nonlabored. Even breathing. No evidence of distress or shortness of breath. Psychology: Patient is engaged during conversation. Normal affect and mood. Does not appear depressed or anxious during encounter. Vascular: Dorsalis pedis and posterior tibial pulses faintly palpable as b/l Capillary Fill time < 5 seconds to digits 1-5 b/l Skin temperature warm to cool proximal to distal b/l Hair growth present to digits Neurological: intact light touch/epicritic sensation b/l intact protective sensation no significant neurological deficits Dermatological: Nails 1-5 b/l appear normal. Webspaces clean and dry 1-4 b/l. Skin appears well hydrated and supple. good color, texture, turgor. No open lesions present. No callosities present. Musculoskeletal/Orthopaedic: Patient has pain to palpation of right fibula sesamoid. There is pain with rom of right 1st mtpj Foot type is neutral structurally AJ ROM is full with knee extended and flexed 1st MPJ is decreased when loaded and + pain or crepitus are noted with ROM. MTJ, STJ are full and free of pain and crepitus. +5/5 muscle strength dorsiflexion, plantarflexion, inversion, eversion b/l Radiographs: 3 views right foot ordered October 15, 2022: I hav (more content not included)... [facility] 10-15-2022 Note HNO ID: [id number] Author: Asia Bay RN Service: ? Author Type: Registered Nurse Type: Progress Notes Filed: 10/15/2022 12:42 PM Note Text: AMB ROOMING INTAKE FLOWSHEET DATA Risk Screening Do you have concerns about personal safety or safety in the home?: No Pain Pain Level: 0 (3/10 when it hurts) Pain Location: Foot-Right Duration Amount of Time: 4 Duration Units: Years Frequency: Intermittent Intervention/Comfort measure: Relaxation, Reposition Patient presents with: Right Foot - New, Pain, Bunion Patient presents for Right foot bunion. Has intermittent pain with it. States that she has had 1 surgery on it in 2019 and pain started coming back in 2021. [facility] 10-15-2022 Note HNO ID: [id number] Author: RT Yordy(R) Service: ? Author Type: Hydrogeology Professor Type: Progress Notes Filed: 10/15/2022 10:31 AM Note Text: Radiology Service Progress Note PATIENT NAME: Jody Diamond DATE OF SERVICE: October 15, 2022 TIME: 10:30 AM PATIENT IDENTITY VERIFICATION COMPLETED USING TWO (2) IDENTIFIERS: Name and Date of confirmed by patient verbally. FALL SCREENING: Has the patient had 2 falls in the last year or 1 fall with injury or currently using an Ambulatory Assistive Device (Walker, Cane, Wheelchair, Crutches, etc.)? No PATIENT GENDER DATA: Female. status: : No status: NO. PATIENT RELEVANT IMPLANT DATA REVIEWED: Yes RADIOLOGY DEPARTMENT: General X-ray: Exam(s) Completed: Lower Extremity X-Ray(s): Foot, Right PERIPHERAL IV DATA: Not applicable SIGNED BY: RT Yordy(R) October 15, 2022 10:30 AM [facility] 10-15-2022 History of Presen t illness Narrative Per Dr. Kahn, Jody was provided with Powerstep gel inserts, size 9, and instructed/educated in its application, wear, and care. All questions were answered, and patient was able to demonstrate competence with the necessary skills to utilize the above equipment. Per Dr. Kahn, Jody was provided with right dancer pad, and instructed/educated in its application, wear, and care. All questions were answered, and patient was able to demonstrate competence with the necessary skills to utilize the above equipment. Yuridia Dominguez LPN Images from the original note were not included. Initial Podiatric Office Visit: Chief Complaint: This 67 year old female who presents with chief complaint:bunion of right foot HPI Patient presents to clinic for evaluation of bunion of right foot. She has history of bunionectomy performed in 2019. She states the bunion has since returned and is starting to cause her pain. She states the pain is not horrible but when she is active, she states the pain is annoying. She states the pain is located to the great toe. Patient treats with rest, medication and change in shoe gear. PAIN EVALUATION 10/15/2022 1125 Pain Level: 0 3/10 when it hurts Pain Location: Foot-Right Duration Amount of Time: 4 Duration Units: Years Frequency: Intermittent Intervention/Comfort measure: Relaxation;Reposition No results found for: HBA1C PCP: Kameron Lin MD PAST MEDICAL HISTORY Diagnosis Date Spinal stenosis Current Outpatient Medications Medication Sig baclofen 10 mg tablet Take 1 tablet by mouth daily at bedtime. gabapentin (NEURONTIN) 300 mg capsule Take 1 capsule by mouth daily at bedtime. atorvastatin (LIPITOR) 40 mg tablet Take 1 tablet by mouth once daily. buPROPion SR (ZYBAN SR; WELLBUTRIN SR) 150 mg 12 hr tablet Take 150 mg by mouth twice daily. KLOR-CON M20 20 mEq tablet Take 20 mEq by mouth once daily. Calcium Citrate-Vitamin D3 (CITRACAL+D) 315 mg-6.25 mcg (250 unit) tab Take 1 tablet by mouth twice daily with meals. lisinopril-hydroCHLOROthiazide (ZESTORETIC) 20-25 mg per tablet Take 1 tablet by mouth once daily. Multivitamin capsule Take 1 capsule by mouth once daily. levothyroxine (SYNTHROID) 50 mcg tablet Take 50 mcg by mouth daily before breakfast. meloxicam (MOBIC) 15 mg tablet Take 15 mg by mouth once daily. (Patient not taking: Reported on 10/15/2022) cyclobenzaprine (FLEXERIL) 10 mg tablet Take 1 tablet by mouth twice daily as needed. (Patient not taking: Reported on 10/15/2022) lisinopril-hydrochlorothiazide (ZESTORETIC) 20-12.5 mg per tablet Take 1 tablet by mouth once daily. (Patient not taking: Reported on 10/15/2022) CITALOPRAM HYDROBROMIDE (CELEXA ORAL) Take by mouth. (Patient not taking: Reported on 10/15/2022) No current facility-administered medications for this visit. ALLERGIES No Known Allergies PAST SURGICAL HISTORY Procedure Laterality Date LUMBAR SPINE FUSN,POST INTERBODY FAMILY HISTORY Problem Relation Age of Onset Coronary Artery Disease Father Social History Tobacco Use Smoking status: Former Types: Cigarettes Smokeless tobacco: Never Vaping Use Vaping Use: Never used Substance Use Topics Alcohol use: Not Currently Drug use: Never REVIEW OF SYSTEMS GENERAL: Negative for Malaise, significant weight loss, fever RESPIRATORY: Negative for cough, wheezing and shortness of breath CARDIOVASCULAR: Negative for chest pain, leg swelling and palpitations GI: Negative for abdominal discomfort, blood in stools or black stools and change in bowel habits : Negative for dysuria, frequency and incontinence MUSCULOSKELETAL: Negative for joint pain or swelling, back pain, and muscle pain. SKIN: Negative for lesions, rash, and itching. HEMATOLOGY/LYMPHOLOGY Negative for prolonged bleeding, bruising easily, and swollen nodes. ENDOCRINE: Negative for cold or heat intolerance, polyuria, polydipsia and goiter. NEURO: negative Physical Exam: Constitutional: Pt is a well developed 67 year old female who is alert, oriented and cooperative Eyes: Following during examination. No redness or drainage. Respiratory: RR normal and nonlabored. Even breathing. No evidence of distress or shortness of breath. Psychology: Patient is engaged during conversation. Normal affect and mood. Does not appear depressed or anxious during encounter. Vascular: Dorsalis pedis and posterior tibial pulses faintly palpable as b/l Capillary Fill time < 5 seconds to digits 1-5 b/l Skin temperature warm to cool proximal to distal b/l Hair growth present to digits Neurological: intact light touch/epicritic sensation b/l intact protective sensation no significant neurological deficits Dermatological: Nails 1-5 b/l appear normal. Webspaces clean and dry 1-4 b/l. Skin appears well hydrated and supple. good color, texture, turgor. No open lesions present. No callosities present. Musculoskeletal/Orthopaedic: Patient has pain to palpation of right fibula sesamoid. There is pain with rom of right 1st mtpj Foot type is neutral structurally AJ ROM is full with knee extended and flexed 1st MPJ is decreased when loaded and + pain or crepitus are noted with ROM. MTJ, STJ are full and free of pain and crepitus. +5/5 muscle strength dorsiflexion, plantarflexion, inversion, eversion b/l Radiographs: 3 views right foot ordered October 15, 2022: I have personally reviewed and interpreted these XR myself: there is arthritic changes of right 1st mtpj. There has been prior bunionectomy of the right foot with healed elvin osteotomy with staple/screw. There is eliseo osteotomy with 2 screw and k-wire. There is implant arthroplasty of right 3rd mtpj ASSESSMENT: (M20.11) Hallux valgus of right foot (primary encounter diagnosis) (M20.21) Hallux rigidus of right foot PLAN: 1. History and physical examination performed. 2. XR reviewed with patient and interpreted today 3. Discussed her pain in right foot. Suspect pain to be associated with arthritic bunion. Recommend firm sole shoe. Could also consider custom orthotic with castro extension. If the pain is due to arthritic bunion, could proceed with removal of staple/screw and conver to fusion of first mtpj. 4. I am going to recommend gel insert and dancer pad to offload the fibula sesamoid to see if her pain is sesamoiditis but I suspect the pain more to be associated with arthritic bunion Dwight Kahn DPM Podiatry [address] [facility] [address] Dept: [phone] Dept AMB ROOMING INTAKE FLOWSHEET DATA Risk Screening Do you have concerns about personal safety or safety in the home?: No Pain Pain Level: 0 (3/10 when it hurts) Pain Location: Foot-Right Duration Amount of Time: 4 Duration Units: Years Frequency: Intermittent Intervention/Comfort measure: Relaxation, Reposition Patient presents with: Right Foot - New, Pain, Bunion Patient presents for Right foot bunion. Has intermittent pain with it. States that she has had 1 surgery on it in 2019 and pain started coming back in 2021. documented in this encounter [facility] 10-15-2022 Instructions Dwight Kahn - 10/15/2022 11:50 AM EDT Recommend firm sole shoe that resists motion of the great toe. Could consider insert with dancer pad to offload the right hallux seamoid. Powerstep Original Full length. Can purchase at [employer] here in [place], [employer] in [place] or [place]. Also can find in [employer] in [facility]. Powersteps can also be purchased online, starting around $45.00 If you have a metatarsal or dancer pad for your feet apply the pad directly to the insole so you can interchange between your shoes. Find a shoe with a removable insole and take this out and replace with your powerstep insole. Always bring powersteps with you when shopping for shoes so that you can make sure that everything fits well together documented in this encounter [facility] Diagnosis Hallux valgus of right foot- Primary Hallux rigidus of right foot Hallux rigidus [facility] Diagnosis Pain in right foot Pain in limb [facility]ative)* Diagnostic Procedure Only (Routine) - Pending Review Specialty Diagnoses / Procedures Referred By Conttima t Referred To Contact XR IMAGING Diagnoses Pain in right foot Procedures XR FOOT GENERAL 3V AP/LAT/OBL RIGHT RADEX FOOT COMPLETE MINIMUM 3 VIEWS Dwight Kahn [address] [place] [address] Xr Imaging Referral ID Status Reason Start Date Expiration Date Visits Requested Visits Authorized [id number] Pending Review Auto-Generat ed Referral 10/05/2022 11/04/2023 1 1 [facility] for referral (narrative)* Diagnostic Procedure Only (Routine) - Closed Specialty Diagnoses / Procedures Referred By Contac t Referred To Contact XR IMAGING Diagnoses Pain in right foot Procedures XR FOOT GENERAL 3V AP/LAT/OBL RIGHT RADEX FOOT COMPLETE MINIMUM 3 VIEWS Dwight Kahn [address] [place] [address] [place] [address] Referral ID Status Reason Start Date Expiration Date V isits Requested Visits Authorized [id number] Closed Auto-Generate d Referral 10/05/2022 11/04/2023 1 1 [facility] for visit Narrative* Diagnostic Procedure Only (Routine) - Closed Specialty Diagnoses / Procedures Referred By Contac t Referred To Contact XR IMAGING Diagnoses Pain in right foot Procedures XR FOOT GENERAL 3V AP/LAT/OBL RIGHT RADEX FOOT COMPLETE MINIMUM 3 VIEWS Dwight Kahn [address] [place] [address] [place] [address] Referral ID Status Reason Start Date Expiration Date V isits Requested Visits Authorized [id number] Closed Auto-Generate d Referral 10/05/2022 11/04/2023 1 1 [facility] Summary Purpose Family History No Family History Records Found Advance Directives No Advanced Directives Records Found Additional Source Comments Source Comments (unrecognize d section and content) In the event this informatio n is protected by the Federal Confidentiality of Alcohol and Drug Abuse Patient Records regulations: The Federal rules restrict any use of the information to criminally investigate or prosecute any alcohol or drug abuse patient.[facility] the event this information is protected by the Federal Confidentiality of Alcohol and Drug Abuse Patient Records regulations: The Federal rules restrict any use of the information to criminally investigate or prosecute any alcohol or drug abuse patient.[facility] the event this information is protected by the Federal Confidentiality of Alcohol and Drug Abuse Patient Records regulations: The Federal rules restrict any use of the information to criminally investigate or prosecute any alcohol or drug abuse patient.[facility] Care Teams (unrecognized sec tion and content) Biomedical Engineering Technologist Relationship Specialty Start Date End Date Kameron Lin Chi [address] [facility] [address] [place] [address] PCP - General Gerontology 09/19/22 Biomedical Engineering Technologist Relationship Specialty Start Date End Date Kameron Lin Chi [address] [facility] [address] [place] [address] PCP - General Gerontology 09/19/22 Reason for Visit (unrecogniz ed section and content) INFORMATION SOURCE (unrecogn ized section and content) FOR RECORDS PERTAINING TO PATIENTS WHO ARE OR HAVE BEEN ENROLLED IN A CHEMICAL DEPENDENCY/SUBSTANCEABUSE PROGRAM, SOME INFORMATION MAY BE OMITTED. This clinical summary was aggregated from multiple sources. Caution should be exercised in using it in the provision of clinical care. This summary normalizes information from multiple sources, and as a consequence, information in this document may materially change the coding, format and clinical context of patient data. In addition, data may be omitted in some cases. CLINICAL DECISIONS SHOULD BE BASED ON THE PRIMARY CLINICAL RECORDS. [employer] provides no warranty or guarantee of the accuracy or completeness of information in this document.
[2023-06-11 11:54] LABS: Absolute Lymphocyte Count 1.14 X10^3/uL (0.83-4.51); Absolute Neutrophil Count 6.2 X10^3/uL (2.0-7.7); Basophil# 0.07 X10^3/uL; Basophil% 0.9 % (0-1); Eosinophil# 0.12 X10^3/uL; Eosinophils% 1.5 % (0-5); Hematocrit 41.1 % (37-47); Hemoglobin 12.8 g/dL (12.0-15.0); Lymphocyte # 1.14 X10^3/ul (0.83-4.51); Lymphocyte % 14.3 % (19-41); Mean Corp Hgb Conc 31.1 g/dL (32-36); Mean Corpuscular Hgb 26.7 pg (27.0-32.0); Mean Corpuscular Volume 85.8 fL (81-99); Mean Platelet Vol. 11.7 fl (6.2-12.0); Monocyte# 0.44 X10^3/uL; Monocyte% 5.5 % (0-10); NRBC Flagged by Analyzer 0 % (0-5); Neutrophil # 6.15 X10^3/uL (2.7-7.7); Neutrophil % 77.3 % (47-70); Platelet Count 387 K/mm3 (150-450); RBC Distribution Width CV 13.4 % (11.6-14.6); RBC Distribution Width SD 41.6 fl (35.1-43.9); Red Blood Count 4.79 M/mm3 (4.2-5.4)
[2023-06-11 12:16] LABS: Vitamin D,25 Hydroxy 75.1 ng/mL
[2023-06-11 12:23] LABS: ALB/GLOB Ratio 1.1 RATIO (0.9-2.4); AST(SGOT) 23 U/L (15-37); Alanine Aminotransfer ALT/SGPT 34 U/L (13-56); Albumin, Serum 4.1 g/dL (3.2-5.0); Alkaline Phosphatase 50 U/L (45-117); Anion Gap 4 (5-15); BUN 26 mg/dL (7-18); BUN/Creat Ratio 24.1 RATIO (10-20); Calcium,Total 10.1 mg/dL (8.5-10.1); Chloride 103 mmol/L (98-107); Creatinine, Serum 1.08 mg/dL (0.55-1.02); EST Glomerular Filtration Rate 54 mL/min (>60); Est Glom Filt Rate - Afr Amer 65 mL/min (>60); Globulin 3.8 g/dL (2.2-4.2); Glucose 108 mg/dL (74-106); Phosphorus 4.2 mg/dL (2.5-4.9); Potassium 3.7 mmol/L (3.5-5.1); Protein, Total 7.9 g/dL (6.4-8.2); Sodium Level 137 mmol/L (136-145); Thyroid Stim Hormone (TSH) 1.57 uIU/mL (0.358-3.74)
== END | disposition home or self-care (01) ==
LOC: POLAB3 10:45
PROVIDERS: PCP Family Medicine Geriatric Medicine; Visit Provider Internal Medicine Nephrology
DX: I12.9 Hypertensive chronic kidney disease with stage 1 through stage 4 chronic kidney disease, or unspecified chronic kidney disease (principal); N18.31 Chronic kidney disease, stage 3a; E55.9 Vitamin D deficiency, unspecified
CPT/HCPCS: 36415; 80053; 82306; 84100; 84443; 85025

== ENCOUNTER 2023-07-18 10:30 | Outpatient (RCR) | payer MEDICARE, BC, SELFPAY ==
--- NOTE | 2023-05-16 13:19 | HP.PTEVAL_ITS ---
Patient's Visit Information Visit Information Visit Information: PEDRO AVINA is a 68 year old F referred to Physical Therapy by LEYDI COPELAND with a diagnosis of . Date of Evaluation: 05/16/23 Physical Therapist: Yomi Bhagat, PT, Cert MDT, OCS Visit Plan Frequency: 2x /Week Duration: 4 Weeks Plan: S/P LUMBAR BRACE ON ALL TIMES 6 WEEKS OKAY TO REMOVE SUPINE 40# LIFTING RESTRICTION PT INTERVENTIONS POSTURAL EX'S ,DLS ,LE STRENGTHENING ( HIPS) ,ENDURANCE PROGRAM AND POSTURAL/BODY MECHANICS EDUCATION Subjective Subjective: This 68 y/o female presents to physical therapy with s/p post laminectomy with spinal fusion Apr [address] Landaverde at [facility] . Patient d/c next day 6weeks lumbar brace and bone stimulator. Patient had naqvi rgery 10 years ago with lumbar fusion L4-S1 thus had to do revision. Patient became gradual worse in Summer unable to perform general housework tasks yard work. Initially ,seen DR Huston tried PT at [facility] not getting better. Tried epidural injection pain management . Patient had MRI prior to surgery . Seen PA ~ 1week removed jacque and start PT . Lifting restriction NO BLT and 40 # restriction. Brace on all time except sleeping and resting spine. Patient taking medication Narco q 6 hrs. Aggravating factors extended standing. Alleviating factors medication and rest. Paresthesia left thigh. Location pain symmetrical and hips. back Bowel/bladder-. Coughing/sneezing-. Sleeping good. Patient pain affects QOL and function . Patient goals to be active. SOCIAL: VOCATION: Retired Pain Bilateral Back: Pain Intensity (Out of 10): 3 Pain Intensity Range: 10 Bilateral Hip: Pain Intensity (Out of 10): 3 Pain Intensity Range: 10 Objective Objective: POSTURE: mild forward posture ,lumbar brace intact NEURO: C/O paresthesia/tingling anterior thigh ,reflexes L3-4,L4-5,L5- S1 2/3 GAIT: reciprocal gait pattern with lumbar brace SKIN: incision well approximate LUMBAR ROM: flexion mod loss ,extension mod loss ,side glide mod loss FLEXABILITY: hamstrings WNL MMT: ( peak force) quads right 23.7 ,left 18.9 ,hamstrings right 15.7 ,left 12.6 ,hip flexion 5.8 right ,left 0 left ,ankle 4/5 Special Tests L/S Slump test left side: Negative L/S Slump test right side: Negative L/S Left Straight Leg Raise: Negative L/S Right Straight Leg Raise: Negative Balance/Special Test Scores Oswestry Low Back Score: 26 Goals Goal 1:: Patient to be I with HEP for lumbar Goal Time Frame: 4-6 Weeks Goal 2:: Patient to improve lumbar ROM for function recovery to put on shoes and ADLS Goal Time Frame: 4-6 Weeks Goal 3:: Patient to improve peak force hips by 10# and quads/hams 5-10# strength to improve gait Goal Time Frame: 4-6 Weeks Goal 4:: Patient to demonstrate 50% improvement with improved function ,strength and less pain Goal Time Frame: 4-6 Weeks Goal 5:: Patient to improve back oswestry score by 5 points to improve QOL and function Goal Time Frame: 4-6 Weeks Rehabilitation Potential Physical Therapy Diagnosis: This patient underwent s/p lumbar laminectomy with fusion Apr 23 with decrease lumbar ROM ,weakness hip left > right ,decrease gait ADL 's and function/housework tasks thus benefit from skilled PT Rehabilitation Potential: Good Anticipated Interventions Patient/Client Instruction: Educate patient on: Condition and Plan of Care For the Purpose of:: To decrease pain, To increase ROM, To improve muscle performance and motor function, To improve ability to perform ADL's, To increase tolerance to activity/condition/position, To improve ability of physical actions for home/community/work/leisure, To improve health of tissue, To decrease soft tissue restriction, To increase flexibility/ROM, To improve endurance, To reduce risk of recurrence and To improve tolerance to ADL's Therapeutic Exercise to Include: Strength training, Endurance training, Body mechanics, Postural training, Flexibilty training and Dynamic Lumbar Stabilization Comment: BLE -HIPS For the Purpose of:: To decrease pain, To improve muscle performance and motor function, To increase tolerance to activity/condition/position, To improve ability of physical actions for home/community/work/leisure, To improve health of tissue, To decrease soft tissue restriction, To increase flexibility/ROM, To improve endurance and To improve tolerance to ADL's Text: Thank you for the opportunity to evaluate your patient. For Medicare and Medicare HMO plans, please review the plan of care and approve it. It will need to be FAXED BACK to us at [phone] for Medicare purposes. For Medicare only, by signing this I certify the plan of care. Please let me know if there are questions or concerns regarding this plan of care. Physician Signature: Date:
--- NOTE | 2023-06-12 11:57 | HP.PTREVAL_ITS ---
Re-Evaluation Intro: LEYDI COPELAND, It has been my pleasure to treat PEDRO AVINA over the last 9 visits for S/P LUMBAR LAMINECTOMY WITH FUSION. Please see the progress note below for an update on the physical therapy plan of care! Subjective Subjective: Doing better ..some pain left buttock and lateral thigh C/O some numbness lateral thigh Objective Objective/Function: POSTURE: mild forward posture NEURO: C/O paresthesia/tingling anterior thigh ,reflexes L3-4,L4-5,L5- S1 2/3 GAIT: reciprocal gait pattern with lumbar brace *Patient will cont to benefit from skilled PT to improve lumbar ROM and function ,patient made progress with increasing strength and function of recovery and weaning from crutches * SKIN: incision well approximate LUMBAR ROM: flexion min loss ,extension mod loss ,side glide mod loss FLEXABILITY: hamstrings WNL MMT: ( peak force) quads right 31.7 ,left 27.9 ,hamstrings right 30.7 ,left 22.6 ,hip flexion 35.8 right ,left 24.8 left ,ankle 4/5 Special Tests L/S Slump test left side: Negative L/S Slump test right side: Negative L/S Left Straight Leg Raise: Negative L/S Right Straight Leg Raise: Negative Plan Plan Plan: S/P LUMBAR BRACE ON ALL TIMES 6 WEEKS OKAY TO WEAN BRACE 40# LIFTING RESTRICTION PT INTERVENTIONS POSTURAL EX'S ,DLS ,LE STRENGTHENING ( HIPS) ,ENDURANCE PROGRAM AND POSTURAL/BODY MECHANICS EDUCATION Balance/Gait/Functional tests Balance/Special Test Scores Oswestry Low Back Score: 18 Goals Goals Goal 1:: Patient to be I with HEP for lumbar Goal Time Frame: 4-6 Weeks Goal Progress: Progressing Goal 2:: Patient to improve lumbar ROM for function recovery to put on shoes and ADLS Goal Time Frame: 4-6 Weeks Goal 3:: Patient to improve peak force hips by 10# and quads/hams 5-10# strength to improve gait( NEW GOAL) Goal Time Frame: 4-6 Weeks Goal 4:: Patient to demonstrate 70% improvement with improved function ,strength and less pain( NEW GOALS) Goal Time Frame: 4-6 Weeks Goal 5:: Patient to improve back oswestry score by 5 points to improve QOL and function( NEW GOAL) Goal Time Frame: 4-6 Weeks Anticipated Interventions Anticipated Interventions Patient/Client Instruction: Educate patient on: Condition and Plan of Care For the Purpose of:: To decrease pain, To increase ROM, To improve muscle performance and motor function, To improve ability to perform ADL's, To increase tolerance to activity/condition/position, To improve ability of physical actions for home/community/work/leisure, To improve health of tissue, To decrease soft tissue restriction, To increase flexibility/ROM, To improve endurance, To reduce risk of recurrence and To improve tolerance to ADL's Therapeutic Exercise to Include: Strength training, Endurance training, Body mechanics, Postural training, Flexibilty training and Dynamic Lumbar Stabilization Comment: BLE -HIPS For the Purpose of:: To decrease pain, To improve muscle performance and motor function, To increase tolerance to activity/condition/position, To improve ability of physical actions for home/community/work/leisure, To improve health of tissue, To decrease soft tissue restriction, To increase flexibility/ROM, To improve endurance and To improve tolerance to ADL's Re-Evaluation Ending Re-evaluation ending: Please do not hesitate to contact me at [phone] by phone or Fax: if you have questions or concerns regarding this new plan of care! Sincerely, Yomi Bhagat, PT, Cert MDT, OCS
--- NOTE | 2023-07-18 11:28 | HP.PTDCSUM ---
Discharge Summary D/C summary: It has been my pleasure to treat PEDRO AVINA referred by LEYDI COPELAND, with the diagnosis of S/P LUMBAR LAMINECTOMY WITH FUSION for a total of 17 visit(s). Discharge Date: 07/18/23 Please see the following information for a summary of their discharge status. Subjective Subjective: Doing alot better In morning get OOB bending ,reaching with poor body mechanics Able to stand or walk longer weakness in leg Pain Bilateral Back: Pain Intensity (Out of 10): 1 Bilateral Hip: Pain Intensity (Out of 10): 1 Overall Improvement % Improvement: 85 Objective Objective/Function: unction: POSTURE: mild forward posture NEURO: C/O paresthesia/tingling anterior thigh ,reflexes L3-4,L4-5,L5- S1 2/3 GAIT: reciprocal gait pattern SKIN: incision well approximate LUMBAR ROM: flexion min loss ,extension mIN loss ,side glide MIN loss FLEXABILITY: hamstrings WNL MMT: ( peak force) quads right 31.7 ,left 44..9 ,hamstrings right 30.7 ,left 22.6 ,hip flexion 35.8 right ,left 24.8 left ,ankle 4/5 Special Tests L/S Slump test left side: Negative L/S Slump test right side: Negative L/S Left Straight Leg Raise: Negative L/S Right Straight Leg Raise: Negative Goals Goal 1:: Patient to be I with HEP for lumbar Goal Progress: Goal Met Goal 2:: Patient to improve lumbar ROM for function recovery to put on shoes and ADLS Goal Progress: Goal Met Goal 3:: Patient to improve peak force hips by 10# and quads/hams 5-10# strength to improve gait( NEW GOAL) Goal Progress: Goal Met Goal 4:: Patient to demonstrate 70% improvement with improved function ,strength and less pain( NEW GOALS) Goal Progress: Goal Met Goal 5:: Patient to improve back oswestry score by 5 points to improve QOL and function( NEW GOAL) Goal Progress: Goal Met Plan Plan: D/C TO GYM D/C Information Discharge Comments: HEP HIEU GYM PROGRAM d/c sentence: If there are questions or concerns regarding this patient's physical therapy, please feel free to call me at [phone]. Thank you for the referral of this patient. Sincerely, Yomi Bhagat, PT, Cert MDT, OCS Balance/Gait/Functional tests Balance/Special Test Scores Oswestry Low Back Score: 6 Improvement % Improvement: 85
== END 2023-07-18 19:00 | disposition home or self-care (01) ==
LOC: PT 10:30
PROVIDERS: PCP Family Medicine Geriatric Medicine
DX: Z98.1 Arthrodesis status (principal)
CPT/HCPCS: 97110; 97162; 97530

== ENCOUNTER → 2023-10-22 | Outpatient (CLI) | payer MEDICARE, BC, SELFPAY ==
--- NOTE | 2023-10-22 11:55 | RAD_ITS ---
STUDY: X-RAY - LUMBAR SPINE REASON FOR EXAM: Female, 68 years old. Unspecified thoracic, thoracolumbar and lumbosacral intervertebra TECHNIQUE: 5 view(s) of the lumbar spine were obtained. COMPARISON: 12/20/2022 FINDINGS: Normal lumbar lordosis. Mild levoscoliosis centered at L2/L3. Interval removal of the transpedicular fixation hardware from L4, L5, and S1. 5 mm retrolisthesis of L3 on L4 which is unchanged. There is multilevel endplate spondylosis of the lumbar vertebrae. There is multi-level degenerative disc disease with multi-level disc space narrowing. There is multilevel facet hypertrophy. The soft tissue structures are unremarkable. RAD/L/S Spine Min 4 Views IMPRESSION: 1. Interval removal of transpedicular fixation hardware from L4 through S1. 2. Mild levoscoliosis and degenerative disc disease as described above. Electronically Signed: Alexis Baez MD at 8:50 EDT ,
== END | disposition home or self-care (01) ==
LOC: RAD 11:52
PROVIDERS: PCP Family Medicine Geriatric Medicine; Referring Provider Family Medicine Geriatric Medicine; Visit Provider Family Medicine Geriatric Medicine
DX: M51.9 Unspecified thoracic, thoracolumbar and lumbosacral intervertebral disc disorder (principal); M54.50 Low back pain, unspecified
CPT/HCPCS: 72110

== ENCOUNTER → 2023-12-11 | Outpatient (CLI) | payer MEDICARE, BC, SELFPAY ==
[2023-12-11 12:01] LABS: Absolute Lymphocyte Count 1.53 X10^3/uL (0.83-4.51); Absolute Neutrophil Count 4.3 X10^3/uL (2.0-7.7); Basophil# 0.07 X10^3/uL; Basophil% 1.1 % (0-1); Eosinophils% 3.1 % (0-5); Hematocrit 42.2 % (37-47); Hemoglobin 13.4 g/dL (12.0-15.0); Lymphocyte # 1.53 X10^3/ul (0.83-4.51); Lymphocyte % 23.4 % (19-41); Mean Corp Hgb Conc 31.8 g/dL (32-36); Mean Corpuscular Hgb 28.8 pg (27.0-32.0); Mean Corpuscular Volume 90.6 fL (81-99); Mean Platelet Vol. 11.4 fl (6.2-12.0); Monocyte# 0.42 X10^3/uL; Monocyte% 6.4 % (0-10); NRBC Flagged by Analyzer 0 % (0-5); Neutrophil % 65.7 % (47-70); Platelet Count 299 K/mm3 (150-450); RBC Distribution Width CV 14.3 % (11.6-14.6); RBC Distribution Width SD 47.5 fl (35.1-43.9); Red Blood Count 4.66 M/mm3 (4.2-5.4); White Blood Count 6.5 K/mm3 (4.4-11.0)
[2023-12-11 13:15] LABS: ALB/GLOB Ratio 1.1 RATIO (0.9-2.4); AST(SGOT) 22 U/L (15-37); Alanine Aminotransfer ALT/SGPT 32 U/L (13-56); Alkaline Phosphatase 46 U/L (45-117); Anion Gap 6 (5-15); BUN 20 mg/dL (7-18); BUN/Creat Ratio 18.9 RATIO (10-20); Calcium,Total 10.3 mg/dL (8.5-10.1); Chloride 106 mmol/L (98-107); Creatinine, Serum 1.06 mg/dL (0.55-1.02); EST Glomerular Filtration Rate 55 mL/min (>60); Est Glom Filt Rate - Afr Amer 67 mL/min (>60); Globulin 3.6 g/dL (2.2-4.2); Glucose 111 mg/dL (74-106); Potassium 4.1 mmol/L (3.5-5.1); Protein, Total 7.6 g/dL (6.4-8.2); Sodium Level 139 mmol/L (136-145)
== END | disposition home or self-care (01) ==
LOC: POLAB3 11:48
PROVIDERS: PCP Family Medicine Geriatric Medicine; Visit Provider Family Medicine Geriatric Medicine
DX: I10 Essential (primary) hypertension (principal); E55.9 Vitamin D deficiency, unspecified
CPT/HCPCS: 36415; 80053; 82306; 84443; 85025

== ENCOUNTER → 2024-06-11 | Outpatient (CLI) | payer MEDICARE, BC, SELFPAY ==
[2024-06-11 11:29] LABS: Absolute Lymphocyte Count 1.57 X10^3/uL (0.83-4.51); Basophil# 0.09 X10^3/uL; Basophil% 1.2 % (0-1); Eosinophil# 0.26 X10^3/uL; Eosinophils% 3.5 % (0-5); Hemoglobin 14.1 g/dL (12.0-15.0); Lymphocyte # 1.57 X10^3/ul (0.83-4.51); Lymphocyte % 20.9 % (19-41); Mean Corpuscular Hgb 28.4 pg (27.0-32.0); Mean Corpuscular Volume 88.5 fL (81-99); Mean Platelet Vol. 11.1 fl (6.2-12.0); Monocyte# 0.59 X10^3/uL; Monocyte% 7.8 % (0-10); NRBC Flagged by Analyzer 0 % (0-5); Neutrophil # 4.99 X10^3/uL (2.7-7.7); Neutrophil % 66.3 % (47-70); Platelet Count 310 K/mm3 (150-450); RBC Distribution Width CV 13.2 % (11.6-14.6); RBC Distribution Width SD 42.9 fl (35.1-43.9); Red Blood Count 4.97 M/mm3 (4.2-5.4); White Blood Count 7.5 K/mm3 (4.4-11.0)
[2024-06-11 12:06] LABS: ALB/GLOB Ratio 1.6 RATIO (0.9-2.4); AST(SGOT) 34 U/L (<=31); Alanine Aminotransfer ALT/SGPT 36 U/L (<=34); Albumin, Serum 4.8 g/dL (3.4-4.8); Alkaline Phosphatase 41 U/L (35-104); Anion Gap 12 (5-15); BUN 18 mg/dL (4-19); BUN/Creat Ratio 17.2 RATIO (10-20); Calcium,Total 10.4 mg/dL (7.6-11.0); Carbon Dioxide 27.3 mmol/L (21.0-32.0); Chloride 100 mmol/L (98-108); Creatinine, Serum 1.06 mg/dL (0.70-1.20); EST Glomerular Filtration Rate 58 (>60); Glucose 78 mg/dL (70-99); Potassium 4.2 mmol/L (3.3-5.1); Protein, Total 7.8 g/dL (5.9-8.4); Sodium Level 138 mmol/L (133-145); Total Bilirubin 0.34 mg/dL (0.00-1.30)
== END | disposition home or self-care (01) ==
LOC: LAB 11:05
PROVIDERS: PCP Family Medicine Geriatric Medicine; Referring Provider Family Medicine Geriatric Medicine; Visit Provider Family Medicine Geriatric Medicine
DX: I10 Essential (primary) hypertension (principal); E55.9 Vitamin D deficiency, unspecified
CPT/HCPCS: 36415; 80053; 82306; 84443; 85025

== ENCOUNTER → 2024-07-02 | Outpatient (CLI) | payer MEDICARE, BC, SELFPAY ==
--- NOTE | 2024-07-02 12:55 | ECHOD_ITS ---
Reason For Study Reason For Study: AORTIC VALVE REGURGITATION Procedure This was a 2D Doppler, Color Flow transthoracic echocardiogram. Exam performed in department. Left Ventricle Normal size and thickness. The left ventricular ejection fraction is 55 %. Normal diastology for age. Right Ventricle Normal right ventricle. Atria The left and right atria are normal. Mitral Valve Mild (1+) mitral valve insufficiency. Tricuspid Valve Mild tricuspid valve insufficiency. Normal pulmonary artery pressure. Aortic Valve Trisinus/trileaflet aortic valve. Mild (1+) aortic valve insufficiency. Pulmonic Valve The pulmonic valve is not well visualized. Trivial pulmonic valve insufficiency. Great Vessels Normal sized aortic root. Pericardium/Pleural No pericardial effusion. MMode/2D Measurements & Calculations LVIDd: 4.3 cm IVSd: 1.1 cm LVOT diam: 2.0 cm LVIDs: 2.9 cm LVPWd: 1.00 cm LVOT area: 3.0 cm2 RVDd: 2.7 cm FS: 31.2 % Ao root diam: 3.1 cm LAV(MOD-bp): 46.0 ml LVAd ap4: 26.1 cm2 LAV(MOD-bp) Indexed: 25.6 ml/m2 LVLd ap4: 7.1 cm LAV(MOD-sp2): 44.4 ml EDV(MOD-sp4): 78.0 ml LAV(MOD-sp4): 47.9 ml EDV(sp4-el): 81.1 ml LVAs ap4: 15.3 cm2 LVLs ap4: 5.7 cm ESV(MOD-sp4): 34.6 ml ESV(sp4-el): 34.5 ml EF(MOD-sp4): 55.6 % EF(sp4-el): 57.5 % LVAd ap2: 24.7 cm2 SV(MOD-sp4): 43.4 ml SV(MOD-sp2): 43.3 ml LVLd ap2: 7.0 cm SI(MOD-sp4): 24.1 ml/m2 SI(MOD-sp2): 24.0 ml/m2 EDV(MOD-sp2): 74.6 ml EDV(sp2-el): 73.7 ml LVAs ap2: 14.7 cm2 LVLs ap2: 5.9 cm ESV(MOD-sp2): 31.3 ml ESV(sp2-el): 30.7 ml EF(MOD-sp2): 58.0 % SV(sp4-el): 46.6 ml LA dimension(2D): 3.3 cm LA A4 area: 17.7 cm2 RA A4 area: 12.6 cm2 TAPSE: 2.2 cm Time Measurements MV dec time: 0.17 sec Doppler Measurements & Calculations MV E max thor: 61.4 cm/sec Lat Peak E' Thor: 8.8 cm/sec Med Peak E' Thor: 7.2 cm/sec MV A max thor: 87.1 cm/sec E/E' lat: 7.0 E/E' med: 8.5 MV E/A: 0.71 MV V2 max: 93.3 cm/sec MV P1/2t max thor: 59.3 cm/sec Ao V2 max: 145.9 cm/sec MV max P.5 mmHg MV P1/2t: 54.2 msec Ao max P.5 mmHg MV V2 mean: 48.2 cm/sec Ao V2 mean: 93.4 cm/sec MV mean P.1 mmHg MV dec slope: 320.3 cm/sec2 Ao mean P.1 mmHg MV V2 VTI: 24.6 cm MVA(P1/2t): 4.1 cm2 Ao V2 VTI: 30.8 cm AV (velocity ratio): 0.76 MVA(VTI): 2.8 cm2 ALONZO(I,D): 2.3 cm2 ALONZO(V,D): 2.5 cm2 AI max thor: 409.5 cm/sec LV V1 max: 122.8 cm/sec SV(LVOT): 70.0 ml AI max P.1 mmHg LV V1 max P.0 mmHg AI dec slope: 187.2 cm/sec2 LV V1 mean P.8 mmHg AI P1/2t: 640.7 msec LV V1 mean: 77.4 cm/sec LV V1 VTI: 23.3 cm PA V2 max: 105.2 cm/sec TR max thor: 214.9 cm/sec PA V2 mean: 70.4 cm/sec TR max P.5 mmHg ECHO/Echo Complete Interpretation Summary The left ventricular ejection fraction is 55 %. Mild (1+) mitral valve insufficiency. Mild tricuspid valve insufficiency. Mild (1+) aortic valve insufficiency. Ordering Physician: Elizabeth Harrison Referring Physician: Kameron Lin Chi Performed By: Adrianna Quinones RDCS, RVT
--- NOTE | 2024-07-02 12:55 | CDU_ITS ---
Reason For Study Reason For Study: Atheroslcerotic Plaque Rt. Velocities/BP Lt. Velocities/BP Prox CCA 127.1/24.8 cm/sec. Prox CCA 56.0/16.7 cm/sec. Mid CCA 75.6/14.2 cm/sec. Mid CCA 65.8/16.7 cm/sec. Dist CCA 83.0/17.9 cm/sec. Dist CCA 68.3/21.6 cm/sec. Prox ICA 65.8/20.4 cm/sec. Prox ICA 83.0/30.2 cm/sec. Mid ICA 83.0/27.8 cm/sec. Mid ICA 96.5/37.6 cm/sec. Dist ICA 101.4/30.2 cm/sec. Dist ICA 65.9/23.5 cm/sec. Rt. ICA/CCA = 1.3. Lt. ICA/CCA = 1.5. Prox ECA 95.3/10.6 cm/sec. Prox ECA 58.1/9.2 cm/sec. Rt. Vert. 34.5/5.8 cm/sec. Lt. Vert. 42.5/13.0 cm/sec. Right Extracranial There is intimal thickening but no significant atherosclerotic plaque noted in the right common carotid artery. There is heterogeneous, irregular atherosclerotic plaque noted in the right internal carotid artery. There is intimal thickening but no significant atherosclerotic plaque noted in the right external carotid artery. Antegrade flow is noted in the right vertebral artery. Left Extracranial There is intimal thickening but no significant atherosclerotic plaque noted in the left common carotid artery. There is heterogeneous, irregular atherosclerotic plaque noted in the left internal carotid artery. There is intimal thickening but no significant atherosclerotic plaque noted in the left external carotid artery. Antegrade flow is noted in the left vertebral artery. Procedure Carotid Duplex [id number]. This is a Carotid Duplex examination using B-mode, color flow and specral Doppler. The exam was diagnostic. Exam performed in department. VL/Carotid Duplex Ultrasound Interpretation Summary Mild (<50%) stenosis right extracranial internal carotid. Mild (<50%) stenosis left extracranial internal carotid. Patent and antegrade vertebrals bilaterally. Ordering Physician: Elizabeth Harrison Referring Physician: Kameron Lin Chi Performed By: Omari Garcia RVT
== END | disposition home or self-care (01) ==
LOC: CVS 12:54
PROVIDERS: PCP Family Medicine Geriatric Medicine; Referring Provider Internal Medicine Cardiovascular Disease; Visit Provider Internal Medicine Cardiovascular Disease
DX: R94.31 Abnormal electrocardiogram [ECG] [EKG] (principal); I35.1 Nonrheumatic aortic (valve) insufficiency; I34.0 Nonrheumatic mitral (valve) insufficiency; I65.21 Occlusion and stenosis of right carotid artery; I77.9 Disorder of arteries and arterioles, unspecified
CPT/HCPCS: 93306; 93880

== ENCOUNTER → 2024-07-28 | Outpatient (CLI) | payer MEDICARE, BC, SELFPAY ==
--- NOTE | 2024-07-28 09:56 | BI_ITS ---
EXAM: SCRN MAMM (CAD)W/ISAAC BILAT DATE: 07/28/2024 CLINICAL HISTORY: F, Age 69 y/o , SCREENING No family history. BREAST CANCER RISK ASSESSMENT: Not assessed. TECHNIQUE: Bilateral screening digital breast tomosynthesis with 2D and 3D images. Computer aided detection. COMPARISON: Prior exam(s) dated July 17, 2022.. FINDINGS: TISSUE DENSITY: The breast tissue is composed of scattered area of fibroglandular density. Bilateral Breast Mammographic Findings: No significant masses, calcifications or other abnormalities are identified. No suspicious masses, areas of developing architectural distortion, or suspicious calcifications. There has been no significant interval change. BI/SCRN MAMM (CAD)W/ISAAC BILAT IMPRESSION: OVERALL FINAL ASSESSMENT: BIRADS 1 NEGATIVE RECOMMENDATION: Routine annual follow-up in 1 Year A letter with findings and recommendations will be mailed to the patient. Reading Location: [place] [address]
--- NOTE | 2024-07-28 10:01 | BD_ITS ---
PROCEDURE: DEXA BONE DENSITY STUDY 07/28/2024 REASON FOR EXAM: F, age 69 y/o . Postmenopausal. TECHNIQUE: DXA scan of the lumbar spine and both hips, using make and model. REFERENCE LINKS: ISCD Adult Positions COMPARISON: Comparison is made with prior study dated July 17, 2022. FINDINGS: BMD and T-SCORES Lumbar spine: 0.850 g/cm2, T-Score -1.2 L1 through L4 Change from prior: Improvement by 2.4% Left femoral neck: 0.608 g/cm2, T-Score -2.2 Femoral neck comparison data not recommended for monitoring change. Left total hip: 0.736 g/cm2, T-Score -1.7 Change from prior: Improvement by 4.8% Right femoral neck: 0.615 g/cm2, T-Score -2.1 Femoral neck comparison data not recommended for monitoring change. Right total hip: 0.643 g/cm2, T-Score -1.6 Change from prior: Improvement by 1.8% Fracture Risk Calculation: FRAX (10-year Fracture Risk) Score: FRAX scores should never be reported in a patient with osteoporosis on DEXA or for any patient that is on bone medication. The patient doesmeet the pharmacological treatment recommendations for prevention of osteoporosis BD/Dexa Bone Density Study IMPRESSION: OSTEOPENIA. Recommend follow-up as clinically warranted. Reading Location: [place] [address]
== END | disposition home or self-care (01) ==
LOC: OPBD 09:54
PROVIDERS: PCP Family Medicine Geriatric Medicine; Referring Provider Family Medicine Geriatric Medicine; Visit Provider Family Medicine Geriatric Medicine
DX: Z12.31 Encounter for screening mammogram for malignant neoplasm of breast (principal); Z78.0 Asymptomatic menopausal state; M81.0 Age-related osteoporosis without current pathological fracture
CPT/HCPCS: 77063; 77067; 77080

== ENCOUNTER → 2024-09-24 | Outpatient (CLI) | payer MEDICARE, BC, SELFPAY ==
--- NOTE | 2024-09-24 09:51 | RAD_ITS ---
PROCEDURE: HIP, UNI W/ PELVIS 2-3 VIEWS 09/24/2024 REASON FOR EXAM: LEFT HIP PAIN TECHNIQUE: HIP, UNI W/ PELVIS 2-3 VIEWS COMPARISON: 02/19/2022. FINDINGS: Calcific tendinosis at the trochanteric insertion of the right gluteal tendons. Mild osteopenia of the visualized bones. Degenerative joint disease. No fracture or dislocation is seen. No lytic or blastic bone lesion is noted. RAD/HIP, UNI W/ Pelvis 2-3 Views IMPRESSION: No evidence for acute abnormality. Reading Location[facility]
--- NOTE | 2024-09-24 09:52 | RAD_ITS ---
PROCEDURE: L/S SPINE MIN 4 VIEWS 09/24/2024 REASON FOR EXAM: LOW BACK PAIN TECHNIQUE: L/S SPINE MIN 4 VIEWS COMPARISON: 10/22/2023. FINDINGS: Mildly exaggerated lumbar lordosis. Mild levoscoliosis centered at L2/L3. 5 mm retrolisthesis of L3 on L4 which is unchanged. There are diffuse spondylotic changes. Findings are demonstrated to by diffuse disc space narrowing, osteophyte formation and degenerative endplate sclerosis. There is diffuse facet joint arthropathy with secondary bilateral neural foramina narrowing. No fracture or dislocation is seen. No aggressive lytic or blastic bony lesion is noted. Unchanged lower lumbar laminectomies. RAD/L/S Spine Min 4 Views IMPRESSION: No evidence for acute abnormality. Spondylosis, slightly progressed. Reading [facility]
== END | disposition home or self-care (01) ==
LOC: RAD 09:50
PROVIDERS: PCP Family Medicine Geriatric Medicine; Referring Provider Family Medicine Geriatric Medicine; Visit Provider Family Medicine Geriatric Medicine
DX: M25.552 Pain in left hip (principal); M54.50 Low back pain, unspecified; M47.9 Spondylosis, unspecified
CPT/HCPCS: 72110; 73502

== ENCOUNTER → 2024-12-09 | Outpatient (CLI) | payer MEDICARE, BC, SELFPAY ==
[2024-12-09 10:23] LABS: Hematocrit 41.6 % (37-47); Hemoglobin 13.6 g/dL (12.0-15.0); Immature Granulocytes Count 0.020 X10^3/uL (0.0-0.0); Mean Corp Hgb Conc 32.7 g/dL (32-36); Mean Corpuscular Volume 89.1 fL (81-99); Mean Platelet Vol. 11.3 fl (6.2-12.0); NRBC Flagged by Analyzer 0 % (0-5); Platelet Count 303 K/mm3 (150-450); RBC Distribution Width CV 13.8 % (11.6-14.6); RBC Distribution Width SD 44.8 fl (35.1-43.9); Red Blood Count 4.67 M/mm3 (4.2-5.4); White Blood Count 6.1 K/mm3 (4.4-11.0)
[2024-12-09 11:25] LABS: Bilirubin, Direct 0.16 mg/dL (0.00-0.30)
[2024-12-09 11:43] LABS: AST(SGOT) 29 U/L (<=31); Alanine Aminotransfer ALT/SGPT 39 U/L (<=34); Albumin, Serum 4.5 g/dL (3.4-4.8); Alkaline Phosphatase 43 U/L (35-104); BUN 17 mg/dL (4-19); BUN/Creat Ratio 17.3 RATIO (10-20); Calcium,Total 10.1 mg/dL (7.6-11.0); Carbon Dioxide 27.0 mmol/L (21.0-32.0); Chloride 104 mmol/L (98-108); Globulin 2.7 g/dL (2.2-4.2); Glucose 104 mg/dL (70-99); Potassium 4.0 mmol/L (3.3-5.1)
[2024-12-09 11:44] LABS: Anion Gap 11 (5-15); Vitamin D,25 Hydroxy 77.6 ng/mL (30-100)
[2024-12-09 18:04] LABS: Xtra Tube Kwok EXTRA TUBE
== END | disposition home or self-care (01) ==
LOC: POLAB3 10:03
PROVIDERS: Student in an Organized Health Care Education/Training Program; PCP Family Medicine Geriatric Medicine; Visit Provider Family Medicine Geriatric Medicine
DX: I10 Essential (primary) hypertension (principal); E03.9 Hypothyroidism, unspecified; E55.9 Vitamin D deficiency, unspecified; E78.5 Hyperlipidemia, unspecified
CPT/HCPCS: 36415; 80053; 82248; 82306; 84443; 85025

== ENCOUNTER → 2025-01-20 | Outpatient (CLI) | payer MEDICARE, BC, SELFPAY | END | disposition home or self-care (01) | LOC: POLAB3 11:42 | PROVIDERS: PCP Family Medicine Geriatric Medicine; Visit Provider Family Medicine Geriatric Medicine | DX: I10 Essential (primary) hypertension (principal) | CPT/HCPCS: 36415; 84443 ==